=== PATIENT | male | born 1990 | race Hispanic/Latino ===

== ENCOUNTER 2018-07-15 09:15 | Inpatient (IN) | payer BC ==
[2018-07-15] MEDS ORDERED: NA CHLORIDE 0.9% 1,000 ML ONE (09:40)
[2018-07-15] MEDS ORDERED: HYDROCODONE/APAP 10/325 TAB ONE (10:01)
[2018-07-15 10:08] LABS: Absolute Lymphocytes (CBC) 1.3 K/uL (0.7-4.9); Absolute Monocytes 1.4 K/uL (0.1-1.3); Absolute Neutrophil 12.5 K/uL (1.8-8.0); Basophils % 0.3 % (0-1.3); Eosinophils % 2.1 % (0-4.4); Hematocrit 36.9 % (39.6-49.0); Lymphocytes % 8.4 % (15.3-44.8); MCH 28.5 pg (27.0-35.0); MCV 83.9 fL (80-100); MPV 7.3 fL (7.6-11.3); Monocytes % 9.1 % (3.3-12.3)
[2018-07-15 10:17] LABS: BUN Blood Urea Nitrogen 10 mg/dL (7-18); Bicarbonate 26 mmol/L (21-32); Glucose Level 306 mg/dL (74-106); Potassium 3.7 mmol/L (3.5-5.1); Sodium Level 133 mmol/L (136-145)
--- NOTE | 2018-07-15 10:33 | RAD REPORT ---
EXAM DESCRIPTION: RAD - Foot Right 3 View - 07/15/2018 10:18 am CLINICAL HISTORY: Pain;Swelling COMPARISON: Foot Right Wo Cont dated 03/23/2017; Foot Right 3 View dated 03/20/2017 FINDINGS: Soft tissue swelling is seen along the region of the forefoot. A soft tissue wound is like ly present along the plantar aspect of the forefoot. No subcutaneous gas is seen. No radiographic fin ding of osteomyelitis. IMPRESSION: Soft tissue swelling is seen in the forefoot with small plantar ulceration noted. No fin ding to indicate osteomyelitis.
--- NOTE | 2018-07-15 10:49 | EDPHYS ---
Physician Documentation [facility] Name: Parminder Smiley Age: 28 yrs Sex: Male : 1990 Arrival Date: 07/15/2018 Time: 09:17 Bed 6 Private MD: Kristy Arguelles H; Sinha, Anil ED Physician Caleb Marrero HPI: 07/15 09:34 This 28 yrs old Male presents to ER via Ambulatory with complaints of rn Infection R Foot. 09:34 the patient presents with a swollen area of the right foot. Description: erythematous, rn swollen. Onset: The symptoms/episode began/occurred last night. Possible cause(s): unknown. Associated signs and symptoms: Pertinent positives: swelling, Pertinent negatives: fever. Severity of symptoms: At their worst the symptoms were moderate, in the emergency department the symptoms are unchanged. The patient has experienced similar episodes in the past. Sent by Dr. Middleton for admission to hospital for cellulitis, diabetic foot infection, sent from wound healing. NO fever. + swelling and pain that shoots up right foot.. Historical: - Allergies: 09:28 No Known Allergies; hb - Home Meds: 09:28 Humulin R 100 unit/mL soln [Active]; lisinopril 20 mg Oral tab 1 tab BID [Active]; hb Lyrica 200mg Oral 3 times per day [Active]; - PMHx: 09:28 Cellulitis; Diabetes - IDDM; Hypertension; hb - Immunization history:: Adult Immunizations up to date. - Social history:: Smoking status: Patient/guardian denies using tobacco. - Ebola Screening: : No symptoms or risks identified at this time. - Family history:: not pertinent. - Hospitalizations: : No recent hospitalization is reported. ROS: 09:34 Constitutional: Negative for fever, chills, and weight loss, Eyes: Negative for injury, rn pain, redness, and discharge, Neck: Negative for injury, pain, and swelling, Cardiovascular: Negative for chest pain, palpitations, and edema, Respiratory: Negative for shortness of breath, cough, wheezing, and pleuritic chest pain, Abdomen/GI: Negative for abdominal pain, nausea, vomiting, diarrhea, and constipation, MS/Extremity: Negative for injury and deformity, Neuro: Negative for headache, seizure. Exam: 09:34 Constitutional: This is a well developed, well nourished patient who is awake, alert, rn and in no acute distress. Head/Face: Normocephalic, atraumatic. Eyes: Pupils equal round and reactive to light ENT: MMM Cardiovascular: tachycardic, regular, no murmur Respiratory: No increased work of breathing, no retractions Skin: Warm, dry, mild erythema to dorsum of right foot MS/ Extremity: Pulses equal, no cyanosis. + mild swelling of right foot with mild dorsal erythema, + shallow ulceration medial/plantar surface at base of first MTP, no drainage. Vital Signs: 09:26 BP 153 / 96; Pulse 121; Resp 18; Temp 98.7(O); Pulse Ox 98% on R/A; Weight 115.67 kg; 3 Height 6 ft. 2 in. (187.96 cm); Pain 6/10; 10:34 BP 138 / 97; Pulse 131; Resp 18; Pulse Ox 99% ; sv 11:45 BP 123 / 88; Pulse 113; Resp 20; Temp 98.7; Pulse Ox 99% on R/A; Pain 6/10; dm5 12:30 BP 127 / 93; Pulse 100; Resp 18; Pulse Ox 100% ; sv 09:26 Body Mass Index 32.74 (115.67 kg, 187.96 cm) [facility] MDM: 09:30 Patient medically screened. rn 10:47 Differential diagnosis: cellulitis. Data reviewed: vital signs, nurses notes, lab test rn result(s), radiologic studies, plain films, and as a result, I will admit patient. Counseling: I had a detailed discussion with the patient and/or guardian regarding: the historical points, exam findings, and any diagnostic results supporting the discharge/admit diagnosis, lab results, radiology results, the need for further work-up and treatment in the hospital. Medical screen evaluation completed. EMTALA emergency medical condition absent. 10:47 Response to treatment: the patient's symptoms have mildly improved after treatment, and rn as a result, I will admit patient. Admission orders: after a detailed discussion of the patient's condition and case, the admit orders are written by me. 07/15 09: Order name: CBC with Diff rn 07/15 09: Order name: Basic Metabolic Panel; Complete Time: 10:47 rn 10/25 09:31 Order name: Blood Culture Adult (2) rn 07/15 09:31 Order name: Ketone, Serum; Complete Time: 10:47 rn 07/15 09:32 Order name: CBC with Automated Diff; Complete Time: 10:17 EDMS 07/15 09:55 Order name: Glucose, Ancillary Testing; Complete Time: 10:17 EDMS 07/15 09:31 Order name: IV Start; Complete Time: 09:58 rn 07/15 09:31 Order name: Glucose Level; Complete Time: 09:58 rn 07/15 09:31 Order name: XRAY Foot RIGHT 3 View; Complete Time: 10:34 rn Administered Medications: 09:55 Drug: NS 0.9% 1000 ml Route: IV; Rate: 1000 ml; Site: right forearm; sv 12:50 Follow up: Response: No adverse reaction; IV Status: Completed infusion; IV Intake: sv 1000ml 09:58 Drug: [place] 10 mg-325 mg 1 tabs Route: PO; sv 10:38 Follow up: Response: No adverse reaction sv 11:15 Follow up: Response: No adverse reaction; Pain is unchanged, physician notified dm5 11:33 Drug: TORadol 30 mg Route: IVP; Site: right forearm; dm5 12:00 Follow up: Response: No adverse reaction sv 11:34 CANCELLED (Duplicate Order): NS 0.9% 1000 ml IV at 1000 ml once dm5 11:43 Drug: vancoMYCIN 1 grams Route: IVPB; Infused Over: 2 hrs; Site: right forearm; dm5 12:50 Follow up: Response: No adverse reaction; IV Status: Infusion continued upon admission sv Point of Care Testing: Blood Glucose: 09:40 Blood Glucose: 290 mg/dL; sv Ranges: Critical Glucose Levels:Adult <50 mg/dl or >400 mg/dl <40 mg/dl or >180 mg/dl Disposition: 07/15/18 10:48 Hospitalization ordered by Angella Durán for Inpatient Admission. Preliminary diagnosis are Cellulitis of right lower limb, Hyperglycemia, unspecified. - Bed requested for Telemetry/MedSurg (Inpatient). - Status is Inpatient Admission. hb - Condition is Stable. - Problem is new. - Symptoms have improved. UTI on Admission? No Signatures: Dispatcher [facility] Carlie Villa RN RN dm5 Viktoria Wilkins, RN ALLYSSA Caleb Marrero MD MD rn Baxter, Heather, RN RN Kristina Muhammad [facility] Dian Henderson Corrections: (The following items were deleted from the chart) 10:57 10:48 Hospitalization Ordered by Angella Durán MD for Inpatient Admission. Preliminary eb diagnosis is Cellulitis of right lower limb; Hyperglycemia, unspecified. Bed requested for Telemetry/MedSurg (Inpatient). Status is Inpatient Admission. Condition is Stable. Problem is new. Symptoms have improved. UTI on Admission? No. rn 11:34 11:33 NS 0.9% 1000 ml IV at 1000 ml once ordered. rn dm5 12:44 10:57 07/15/2018 10:48 Hospitalization Ordered by Angella Durán MD for Inpatient 3 Admission. Preliminary diagnosis is Cellulitis of right lower limb; Hyperglycemia, unspecified. Bed requested for Telemetry/MedSurg (Inpatient). Status is Inpatient Admission. Condition is Stable. Problem is new. Symptoms have improved. UTI on Admission? No. eb 12:59 12:44 07/15/2018 10:48 Hospitalization Ordered by Angella Durán MD for Inpatient Admission. Preliminary diagnosis is Cellulitis of right lower limb; Hyperglycemia, unspecified. Bed requested for Telemetry/MedSurg (Inpatient). Status is Inpatient Admission. Condition is Stable. Problem is new. Symptoms have improved. UTI on Admission? No. 3
--- NOTE | 2018-07-15 10:49 | ER ---
Nurse's Notes [facility] Name: Parminder Smiley Age: 28 yrs Sex: Male : 1990 Arrival Date: 07/15/2018 Time: 09:17 Bed 6 Private MD: Kristy Arguelles H; Sinha, Anil Diagnosis: Cellulitis of right lower limb;Hyperglycemia, unspecified Presentation: 07/15 09:26 Presenting complaint: Patient states: Sent from wound care for wound to right foot. hb Reports increased pain, swelling, and redness over last 2-3 days. Transition of care: patient was not received from another setting of care. Onset of symptoms was July 15, 2018. Risk Assessment: Do you want to hurt yourself or someone else? Patient reports no desire to harm self or others. Care prior to arrival: None. :26 Method Of Arrival: Ambulatory hb 09:26 Acuity: REYMUNDO 3 hb 09:40 Initial Sepsis Screen: Does the patient meet any 2 criteria? HR > 90 bpm. Yes Does the sv patient have a suspected source of infection? Yes: Skin breakdown/wound. Historical: - Allergies: 09:28 No Known Allergies; hb - Home Meds: :28 Humulin R 100 unit/mL soln [Active]; lisinopril 20 mg Oral tab 1 tab BID [Active]; hb Lyrica 200mg Oral 3 times per day [Active]; - PMHx: 09:28 Cellulitis; Diabetes - IDDM; Hypertension; hb - Immunization history:: Adult Immunizations up to date. - Social history:: Smoking status: Patient/guardian denies using tobacco. - Ebola Screening: : No symptoms or risks identified at this time. - Family history:: not pertinent. - Hospitalizations: : No recent hospitalization is reported. Screenin:40 Abuse screen: Denies threats or abuse. Denies injuries from another. Nutritional sv screening: No deficits noted. Tuberculosis screening: No symptoms or risk factors identified. Fall Risk None identified. Assessment: 09:35 General: Appears in no apparent distress. uncomfortable, well developed, Behavior is sv calm, cooperative, appropriate for age. Pain: Complains of pain in right bhatt, anterior aspect of right ankle and dorsum of right foot Pain currently is 6 out of 10 on a pain scale. Quality of pain is described as shooting, Pain began this morning Is continuous. Neuro: Level of Consciousness is awake, alert, obeys commands, Oriented to person, place, time, situation, Moves all extremities. Full function Gait is steady, Speech is normal. Respiratory: Respiratory effort is even, unlabored, Respiratory pattern is regular, symmetrical. Derm: Skin is pink, warm \T\ dry. mild redness noted to anterior right foot. Pt stated he noticed it this morning. Decubitus located on right foot is draining none noted Pt just came from the [facility]. Musculoskeletal: Range of motion: intact in all extremities, Swelling present in right foot. 10:00 Reassessment: Patient appears in no apparent distress at this time. No changes from sv previously documented assessment. Patient and/or family updated on plan of care and expected duration. Pain level reassessed. Patient is alert, oriented x 3, equal unlabored respirations, skin warm/dry/pink. 12:45 Reassessment: Patient appears in no apparent distress at this time. No changes from sv previously documented assessment. Patient and/or family updated on plan of care and expected duration. Pain level reassessed. Patient is alert, oriented x 3, equal unlabored respirations, skin warm/dry/pink. Vital Signs: 09:26 BP 153 / 96; Pulse 121; Resp 18; Temp 98.7(O); Pulse Ox 98% on R/A; Weight 115.67 kg; dh3 Height 6 ft. 2 in. (187.96 cm); Pain 6/10; 10:34 BP 138 / 97; Pulse 131; Resp 18; Pulse Ox 99% ; sv 11:45 BP 123 / 88; Pulse 113; Resp 20; Temp 98.7; Pulse Ox 99% on R/A; Pain 6/10; dm5 12:30 BP 127 / 93; Pulse 100; Resp 18; Pulse Ox 100% ; sv 09:26 Body Mass Index 32.74 (115.67 kg, 187.96 cm) 3 ED Course: 09:17 Patient arrived in ED. as 09:19 Kristy Arguelles DO is Private Physician. as 09:19 Lucio Middleton MD is Private Physician. as 09:19 Caleb Marrero MD is Attending Physician. rn 09:24 Viktoria Wilkins RN is Primary Nurse. sv 09:27 Triage completed. hb 09:28 Arm band placed on right wrist. hb 09:40 Patient has correct armband on for positive identification. Bed in low position. Call sv light in reach. Pulse ox on. NIBP on. Door closed. Head of bed elevated. 09:40 Initial lab(s) drawn, by me, sent to lab. First set of blood cultures drawn by me. sv Inserted saline lock: 20 gauge in right forearm, using aseptic technique. Blood collected. Flushed right forearm with 5 ml normal saline. 09:55 Second set of blood cultures drawn by me. sv 10:13 Awaiting lab results, Awaiting radiology results. sv 10:13 X-ray(s) taken. sv 10:14 CBC with Diff Sent. sv 10:18 XRAY Foot RIGHT 3 View In Process Unspecified. EDMS 10:48 Angella Durán MD is Hospitalizing Provider. rn 12:51 No provider procedures requiring assistance completed. Patient admitted, IV remains in sv place. intact. Administered Medications: 09:55 Drug: NS 0.9% 1000 ml Route: IV; Rate: 1000 ml; Site: right forearm; sv 12:50 Follow up: Response: No adverse reaction; IV Status: Completed infusion; IV Intake: sv 1000ml 09:58 Drug: Munday 10 mg-325 mg 1 tabs Route: PO; sv 10:38 Follow up: Response: No adverse reaction sv 11:15 Follow up: Response: No adverse reaction; Pain is unchanged, physician notified dm5 11:33 Drug: TORadol 30 mg Route: IVP; Site: right forearm; dm5 12:00 Follow up: Response: No adverse reaction sv 11:34 CANCELLED (Duplicate Order): NS 0.9% 1000 ml IV at 1000 ml once dm5 11:43 Drug: vancoMYCIN 1 grams Route: IVPB; Infused Over: 2 hrs; Site: right forearm; dm5 12:50 Follow up: Response: No adverse reaction; IV Status: Infusion continued upon admission sv Point of Care Testing: Blood Glucose: 09:40 Blood Glucose: 290 mg/dL; sv Ranges: Intake: 12:50 IV: 1000ml; Total: 1000ml. sv Outcome: 10:48 Decision to Hospitalize by Provider. rn 12:51 Admitted to Med/surg accompanied by tech, via wheelchair, room 204, with chart, Report sv called to Amando SPIVEY 12:51 Condition: stable 12:51 Instructed on the need for admit. 12:59 Patient left the ED. hb Signatures: Dispatcher [employer] Carlie Alba RN RN dm5 Verde, Stephanie RN Tami Gordon Roman, MD MD rn Baxter, Heather, RN RN hb Herrera, Deanna 3 Corrections: (The following items were deleted from the chart) 09:29 09:26 Presenting complaint: Patient states: Sent from wound care for wound infection of hb right foot. hb
[2018-07-15] MEDS ORDERED: KETOROLAC 30 MG/ML INJ ONE (11:34)
[2018-07-15] MEDS ORDERED: VANCOMYCIN 1 GM/250 ML BAG ONE (11:35)
[2018-07-15] MEDS ORDERED: ACETAMINOPHEN 500 MG TAB PO PRN (13:15)
[2018-07-15] MEDS ORDERED: GLUCAGON 1 MG/VIAL IM PRN (13:15)
[2018-07-15] MEDS ORDERED: VANCOMYCIN 1.25 GM in NA CHLORIDE 0.9% 250 ML IVPB SCH (13:15)
[2018-07-15] MEDS ORDERED: ONDANSETRON 4 MG/2 ML VIAL IV PRN (13:15)
[2018-07-15] MEDS ORDERED: D50W 25 GM/50 ML SYRINGE IV PRN (13:15)
[2018-07-15 13:32] VITALS: BMI 32.1
[2018-07-15] MEDS: NA CHLORIDE 0.9% 1,000 ML IV SCH (13:57)
[2018-07-15] MEDS ORDERED: INFLUENZA VACCINE (for 3y+) 0.5 ML DOSE IMVAC ONE (14:00)
[2018-07-15] MEDS ORDERED: POTASSIUM CL SA 10 MEQ TAB PO ONE (14:00)
[2018-07-15] MEDS ORDERED: TRAMADOL HCL 50 MG TAB PO PRN (14:21)
[2018-07-15] MEDS ORDERED: VANCOMYCIN/NS 1 gm 1 GM/250 ML BAG IV SCH (15:00)
--- NOTE | 2018-07-15 15:55 | P.HP ---
Certification for Inpatient Patient admitted to: Inpatient With expected LOS: >2 Midnights Patient will require the following post-hospital care: None Practitioner: I am a practitioner with admitting privileges, knowledge of patient current condition, hospital course, and medical plan of care. Services: Services provided to patient in accordance with Admission requirements found in Title 42 Section 412.3 of the Code of Federal Regulations Patient History Date of Service: 07/15/18 Primary Care Provider: Dr Middleton - Wound care doctor Reason for admission: right foot infection History of Present Illness: This is a 28-year-old male with significant past medical history of type 2 diabetes, hypertension, noncompliance, obesity, 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 Patient was seen by general surgeon in the wound clinic today and was found to have worsening of his diabetic foot ulcer on the right foot. Patient thus was sent over to the ER for further workup. Patient has failed outpatient therapy with oral antibiotics and daily wound care and this needed to be admitted to the hospital for IV antibiotics. Patient denies having any fever chills nausea vomiting abdominal pain shortness of breath or any other associated symptoms. Patient does complain of having a lot of pain to the area and states that he has noticed increasing purulent discharge to the area as well. Allergies No Known Allergies Allergy (Verified 06/27/15 21:39) Home Medications: Lisinopril [Prinivil*] 20 mg PO BID 07/12/17 Hydrocodone 10/APAP 325 [Chunky 10/325*] 1 tab PO Q4HP PRN #20 tab 07/16/17 Gabapentin [Gralise] 3 tab PO BID 07/15/18 Insulin Aspart Protam & Aspart [Novolog Mix 70-30 Flexpen Syrn] 13 units SQ BID 07/15/18 - Past Medical/Surgical History Has patient received pneumonia vaccine in the past: Yes Diabetic: Yes -: DM -: HTN -: OSTEOMYELITIS -: LEFT FOOT SURGERY -: back surgery - Family History Family History: Reviewed- Non-Contributory - Family History Father -: Diabetes Notes: dialysis/ Mother -: Stroke - Social History Smoking Status: Never smoker Alcohol use: No CD- Drugs: No Caffeine use: Yes Place of Residence: Home Review of Systems 10-point ROS is otherwise unremarkable Physical Examination - Vital Signs Temperature: 97.6 F Blood Pressure: 142/82 Pulse: 103 Respirations: 18 Pulse Ox (%): 100 - Physical Exam General: Alert, In no apparent distress HEENT: Atraumatic, PERRLA, Mucous membr. moist/pink, EOMI, Sclerae nonicteric Neck: Supple, 2+ carotid pulse no bruit, No LAD, Without JVD or thyroid abnormality Respiratory: Clear to auscultation bilaterally, Normal air movement Cardiovascular: Regular rate/rhythm, Normal S1 S2 Gastrointestinal: Normal bowel sounds, No tenderness Musculoskeletal: Erythema, Tenderness, Warmth, Other (right diabetic Foot ulcer. Purulent Drainage noted. Surroding Erythema noted as well. ) Integumentary: No rashes Neurological: Normal gait, Normal speech, Normal strength at 5/5 x4 extr, Normal tone, Normal affect Lymphatics: No axilla or inguinal lymphadenopathy - Studies Laboratory Data (last 24 hrs) 07/15/18 09:40: Sodium 133 L, Potassium 3.7, BUN 10, Creatinine 0.80, Glucose 306 H 07/15/18 09:40: WBC 15.6 H, Hgb 12.5 L, Hct 36.9 L, Plt Count 387 Assessment and Plan - Problems (Diagnosis) (1) Ulcer of foot due to diabetes Onset Date: 06/04/17 Current Visit: No Status: Acute Plan: Ulcer of the right foot with cellulitis. failed Outpt Therapy -IV vanc and zosyn -Wound and blood culture -general Surgery consulted. Appreciated reccs -Continue to monitor closely -Daily wound care Qualifiers: Diabetic foot ulcer location: other Diabetes mellitus type: type 2 Laterality: right Non-pressure ulcer stage: with fat layer exposed Qualified Code(s): E11.621 - Type 2 diabetes mellitus with foot ulcer; L97.512 - Non-pressure chronic ulcer of other part of right foot with fat layer exposed (2) Cellulitis Onset Date: 06/04/17 Current Visit: No Status: Chronic Plan: See # 1 Qualifiers: Site of cellulitis: extremity Site of cellulitis of extremity: lower extremity Laterality: right Qualified Code(s): L03.115 - Cellulitis of right lower limb (3) Diabetes type 2, uncontrolled Onset Date: 04/08/17 Current Visit: No Status: Chronic Plan: Hyperglycemia with Acetone and no Gap. -IV fluids and ISS -AC HS Qualifiers: Glycemic state: with hyperglycemia Qualified Code(s): E11.65 - Type 2 diabetes mellitus with hyperglycemia (4) GERD (gastroesophageal reflux disease) Onset Date: 03/23/17 Current Visit: No Status: Chronic Plan: Restarted on protonix Qualifiers: Esophagitis presence: without esophagitis Qualified Code(s): K21.9 - Gastro -esophageal reflux disease without esophagitis (5) Hypertension Onset Date: 07/13/17 Current Visit: No Status: Chronic Plan: restarted on lisinopril Qualifiers: Hypertension type: essential hypertension (6) Hypertriglyceridemia Onset Date: 03/23/17 Current Visit: No Status: Chronic Plan: restart on lipitor (7) Obesity (BMI 30.0-34.9) Onset Date: 06/04/17 Current Visit: No Status: Chronic (8) Noncompliance Current Visit: No Status: Chronic Discharge Plan: Other Plan to discharge in: 72 Hours - Advance Directives Does patient have a Living Will: No Does patient have a Durable POA for Healthcare: No - Code Status/Comfort Care Code Status Assessed: Yes Critical Care: No
[2018-07-15] MEDS: HYDROCODONE/APAP 10/325 TAB PO PRN ×2 (17:12→21:19)
[2018-07-15] MEDS: INSULIN -REGULAR HUMAN 50 UNIT/0.5 ML ML SQ SCH ×2 (17:12→21:18)
[2018-07-15] MEDS: PIPER/TAZO/NS 3.375gm 3.375 GM/100 ML BAG IVPB SCH (17:12)
[2018-07-15] MEDS: GABAPENTIN PO SCH (21:00)
[2018-07-15] MEDS: GABAPENTIN 300 MG CAP PO SCH (21:20)
[2018-07-15] MEDS: LISINOPRIL 20 MG TAB PO SCH (21:20)
[2018-07-16] MEDS: PIPER/TAZO/NS 3.375gm 3.375 GM/100 ML BAG IVPB SCH ×3 (01:50→16:53)
[2018-07-16] MEDS: NA CHLORIDE 0.9% 1,000 ML IV SCH ×2 (01:51→08:36)
[2018-07-16] MEDS: HYDROCODONE/APAP 10/325 TAB PO PRN ×5 (01:53→21:36)
[2018-07-16] MEDS: VANCOMYCIN 2 GM in NA CHLORIDE 0.9% 500 ML IVPB SCH ×2 (03:00→15:36)
[2018-07-16] MEDS ORDERED: VANCOMYCIN 2 GM/500 ML BAG ONE (04:17)
[2018-07-16 06:38] LABS: Absolute Lymphocytes (CBC) 1.7 K/uL (0.7-4.9); Absolute Monocytes 0.9 K/uL (0.1-1.3); Absolute Neutrophil 7.2 K/uL (1.8-8.0); Basophils % 0.3 % (0-1.3); Eosinophils % 5.7 % (0-4.4); Hematocrit 33.3 % (39.6-49.0); MCH 28.4 pg (27.0-35.0); MCV 84.4 fL (80-100); Monocytes % 8.9 % (3.3-12.3); RBC Red Blood Cell Count 3.95 M/uL (4.33-5.43)
[2018-07-16 06:53] LABS: ALT/SGPT 14 U/L (12-78); AST/SGOT 10 U/L (15-37); Albumin 2.5 g/dL (3.4-5.0); Alkaline Phosphatase 114 U/L (45-117); BUN Blood Urea Nitrogen 10 mg/dL (7-18); Bicarbonate 22 mmol/L (21-32); Bilirubin Total 0.3 mg/dL (0.2-1.0); Glucose Level 251 mg/dL (74-106); Magnesium 2.1 mg/dL (1.8-2.4); Potassium 3.7 mmol/L (3.5-5.1); Protein, Total 6.7 g/dL (6.4-8.2); Sodium Level 137 mmol/L (136-145)
[2018-07-16] MEDS: GABAPENTIN 300 MG CAP PO SCH ×2 (08:27→21:35)
[2018-07-16] MEDS: LISINOPRIL 20 MG TAB PO SCH ×2 (08:28→21:35)
[2018-07-16] MEDS: INSULIN -REGULAR HUMAN 50 UNIT/0.5 ML ML SQ SCH ×4 (08:35→21:36)
[2018-07-16] MEDS: GABAPENTIN PO SCH ×2 (09:00→21:00)
[2018-07-16] MEDS ORDERED: POTASSIUM CL SA 10 MEQ TAB PO ONE (09:00)
[2018-07-16] MEDS: COLLAGENASE 30 GM OINTMENT TOP SCH (09:24)
--- NOTE | 2018-07-16 12:59 | CON ---
Date of Consultation: 07/15/2018 Reason: Right foot diabetic infection. History Of Present Illness: The patient is a 28-year-old gentleman who I [facility], presented to our clinic yesterday morning and has erythema, edema , swelling, increasing pain about 1 day prior to our visit. I immediately advised him to go into the emergency room to be admitted for IV antibiotics and the workup was begun and I was consulted as th e patient is an inpatient now. He is awake, alert, states that the pain is a little bit better. No fevers or chills. No open wound that is draining any pus. He does have a diabetic foot ulcer which is chronic in nature and there is no drainage from there. The erythema and redness is between mostly in the first webspace and dorsum of the foot. Yesterday, the erythema has improved, the edema has i mproved as well. No sore throat, runny nose, cough, headaches, or dizziness. No chest pain. Review of Systems: Otherwise unremarkable. Medical History: Type 1 diabetes, hypertension and history of osteomyelitis. Past Surgical History: Multiple I and D, and foot surgeries. Allergies: NONE. Social History: The patient does not smoke. Denies drinking. Family History: Significant for diabetes and stroke. Physical Examination: Vital Signs: Stable. He is afebrile. He is awake, alert, and oriented x3. Head and Neck: Cranial nerves 2 through 12 are grossly within normal limits. No neck masses. No JV D. Throat clear. Neck is supple. Chest: Clear. Heart: S1, S2. Abdomen: Soft. Extremities: Palpable dorsalis pedis and posterior tibial pulses of right foot. There is edema. Th ere is erythema in the dorsum and towards the first webspace. There is no fluctuance that I can appr eciate. However, I am still concerned about possible infection in that foot. There is no real tende rness. Review of Systems: Otherwise unremarkable. Laboratory Data: Shows white count of 15.6 yesterday with a left shift, today it is 10.5, and the le ft shift has improved. Sugar was over 300 yesterday, it is down to 244 today. X-ray does not show a ny evidence of osteo. Assessment: A 28-year-old gentleman with the right foot diabetic infection, improving with IV antibi otics. Recommendations: The patient still have an abscess developing. We will get an MRI today to make isidro e he does not. We will continue him on IV antibiotics and wound care has been instituted and I will make further recommendation after the MRI is done. JACOBY/FLORI Voice ID: [id number] Report ID: [id number]
--- NOTE | 2018-07-16 13:30 | P.PN ---
Subjective Date of Service: 07/16/18 Primary Care Provider: Dr Middleton - Wound care doctor Chief Complaint: right foot infection Patient seen and examined at bedside with RN. Chart reviewed. Case discussed with general surgery. Currently patient has been doing well overall. Wound does appear to be improving on IV antibiotics Review of Systems 10-point ROS is otherwise unremarkable Physical Examination - Vital Signs Temperature: 97.9 F Blood Pressure: 104/57 Pulse: 92 Respirations: 17 Pulse Ox (%): 95 - Physical Exam General: Alert, In no apparent distress HEENT: Atraumatic, PERRLA, EOMI Neck: Supple, JVD not distended Respiratory: Clear to auscultation bilaterally, Normal air movement Cardiovascular: Regular rate/rhythm, Normal S1 S2 Gastrointestinal: Normal bowel sounds, No tenderness Musculoskeletal: No tenderness Integumentary: Erythema, Warmth, Diabetic ulcer (Right foot) Neurological: Normal speech, Normal tone, Normal affect Lymphatics: No axilla or inguinal lymphadenopathy - Studies Medications List Reviewed: Yes Assessment And Plan - Current Problems (Diagnosis) (1) Ulcer of foot due to diabetes Onset Date: 06/04/17 Current Visit: No Status: Acute Plan: Ulcer of the right foot with cellulitis. failed Outpt Therapy -IV vanc and zosyn -Wound and blood culture pending at this time -general Surgery consulted. Appreciated reccs -Continue to monitor closely -Daily wound care Qualifiers: Diabetic foot ulcer location: other Diabetes mellitus type: type 2 Laterality: right Non-pressure ulcer stage: with fat layer exposed Qualified Code(s): E11.621 - Type 2 diabetes mellitus with foot ulcer; L97.512 - Non-pressure chronic ulcer of other part of right foot with fat layer exposed (2) Cellulitis Onset Date: 06/04/17 Current Visit: No Status: Chronic Plan: See # 1 Qualifiers: Site of cellulitis: extremity Site of cellulitis of extremity: lower extremity Laterality: right Qualified Code(s): L03.115 - Cellulitis of right lower limb (3) Diabetes type 2, uncontrolled Onset Date: 04/08/17 Current Visit: No Status: Chronic Plan: Hyperglycemia with Acetone and no Gap. -IV fluids and ISS -AC HS Qualifiers: Glycemic state: with hyperglycemia Qualified Code(s): E11.65 - Type 2 diabetes mellitus with hyperglycemia (4) GERD (gastroesophageal reflux disease) Onset Date: 03/23/17 Current Visit: No Status: Chronic Plan: Restarted on protonix Qualifiers: Esophagitis presence: without esophagitis Qualified Code(s): K21.9 - Gastro -esophageal reflux disease without esophagitis (5) Hypertension Onset Date: 07/13/17 Current Visit: No Status: Chronic Plan: restarted on lisinopril Qualifiers: Hypertension type: essential hypertension (6) Hypertriglyceridemia Onset Date: 03/23/17 Current Visit: No Status: Chronic Plan: restart on lipitor (7) Obesity (BMI 30.0-34.9) Onset Date: 06/04/17 Current Visit: No Status: Chronic (8) Noncompliance Onset Date: 07/16/18 Current Visit: No Status: Chronic Discharge Plan: Home Plan to discharge in: 72 Hours - Code Status/Comfort Care Code Status Assessed: Yes Critical Care: No
--- NOTE | 2018-07-16 16:58 | RAD REPORT ---
EXAM DESCRIPTION: MRI - Foot Right Wo Cont - 07/16/2018 3:28 pm CLINICAL HISTORY: Foot pain and swelling. Ulceration. COMPARISON: 2017 TECHNIQUE: Axial, sagittal, and coronal magnetic images of the right foot was obtained FINDINGS: Diffuse edema is present within subcutaneous tissues. Effusion is present within the first MTP joint No significant abnormal signal within the bones is noted. . IMPRESSION: Diffuse edema within the subcutaneous tissues consistent with cellulitis. No evidence of osteomyelitis
[2018-07-17] MEDS: PIPER/TAZO/NS 3.375gm 3.375 GM/100 ML BAG IVPB SCH ×3 (00:52→17:00)
[2018-07-17] MEDS: HYDROCODONE/APAP 10/325 TAB PO PRN ×5 (02:22→21:47)
[2018-07-17] MEDS: NA CHLORIDE 0.9% 1,000 ML IV SCH ×4 (03:53→22:57)
[2018-07-17] MEDS: VANCOMYCIN 2 GM in NA CHLORIDE 0.9% 500 ML IVPB SCH ×2 (03:53→15:47)
[2018-07-17 05:39] LABS: Absolute Lymphocytes (CBC) 1.5 K/uL (0.7-4.9); Absolute Monocytes 0.7 K/uL (0.1-1.3); Absolute Neutrophil 5.2 K/uL (1.8-8.0); Basophils % 0.5 % (0-1.3); Hematocrit 33.5 % (39.6-49.0); Lymphocytes % 19.3 % (15.3-44.8); MCH 28.6 pg (27.0-35.0); MCV 85.2 fL (80-100); MPV 6.4 fL (7.6-11.3); Monocytes % 8.6 % (3.3-12.3); RBC Red Blood Cell Count 3.93 M/uL (4.33-5.43)
[2018-07-17 05:56] LABS: ALT/SGPT 12 U/L (12-78); AST/SGOT 11 U/L (15-37); Albumin 2.4 g/dL (3.4-5.0); Alkaline Phosphatase 100 U/L (45-117); BUN Blood Urea Nitrogen 7 mg/dL (7-18); Bicarbonate 19 mmol/L (21-32); Bilirubin Total 0.3 mg/dL (0.2-1.0); Glucose Level 245 mg/dL (74-106); Protein, Total 6.7 g/dL (6.4-8.2); Sodium Level 136 mmol/L (136-145)
[2018-07-17] MEDS: GABAPENTIN PO SCH (09:00)
[2018-07-17] MEDS: COLLAGENASE 30 GM OINTMENT TOP SCH (09:00)
[2018-07-17] MEDS: LISINOPRIL 20 MG TAB PO SCH ×2 (09:24→21:49)
[2018-07-17] MEDS: GABAPENTIN 300 MG CAP PO SCH ×2 (09:24→21:36)
[2018-07-17] MEDS: INSULIN -REGULAR HUMAN 50 UNIT/0.5 ML ML SQ SCH ×4 (09:25→21:37)
--- NOTE | 2018-07-17 11:33 | P.PN ---
Subjective Date of Service: 07/17/18 Primary Care Provider: Dr Middleton - Wound care doctor Chief Complaint: right foot infection Patient seen and examined at bedside with RN. Chart reviewed. Case discussed with general surgery. Currently patient has been doing well overall. Wound does appear to be improving on IV antibiotics. Review of Systems 10-point ROS is otherwise unremarkable Physical Examination - Vital Signs Temperature: 98.0 F Blood Pressure: 140/84 Pulse: 91 Respirations: 17 Pulse Ox (%): 98 - Physical Exam General: Alert, In no apparent distress HEENT: Atraumatic, PERRLA, EOMI Neck: Supple, JVD not distended Respiratory: Clear to auscultation bilaterally, Normal air movement Cardiovascular: Regular rate/rhythm, Normal S1 S2 Gastrointestinal: Normal bowel sounds, No tenderness Musculoskeletal: No tenderness Integumentary: Diabetic ulcer Neurological: Normal speech, Normal tone, Normal affect Lymphatics: No axilla or inguinal lymphadenopathy - Studies Medications List Reviewed: Yes Assessment And Plan - Current Problems (Diagnosis) (1) Ulcer of foot due to diabetes Onset Date: 06/04/17 Current Visit: No Status: Acute Plan: Ulcer of the right foot with cellulitis. failed Outpt Therapy -IV vanc and zosyn -Wound culture + for Staph Aureus -Blood Culture pending -general Surgery consulted. Appreciated reccs -Continue to monitor closely -Daily wound care Qualifiers: Diabetic foot ulcer location: other Diabetes mellitus type: type 2 Laterality: right Non-pressure ulcer stage: with fat layer exposed Qualified Code(s): E11.621 - Type 2 diabetes mellitus with foot ulcer; L97.512 - Non-pressure chronic ulcer of other part of right foot with fat layer exposed (2) Cellulitis Onset Date: 06/04/17 Current Visit: No Status: Chronic Plan: See # 1 Qualifiers: Site of cellulitis: extremity Site of cellulitis of extremity: lower extremity Laterality: right Qualified Code(s): L03.115 - Cellulitis of right lower limb (3) Diabetes type 2, uncontrolled Onset Date: 04/08/17 Current Visit: No Status: Chronic Plan: Hyperglycemia with Acetone and no Gap. -IV fluids and ISS -AC HS Qualifiers: Glycemic state: with hyperglycemia Qualified Code(s): E11.65 - Type 2 diabetes mellitus with hyperglycemia (4) GERD (gastroesophageal reflux disease) Onset Date: 03/23/17 Current Visit: No Status: Chronic Plan: Restarted on protonix Qualifiers: Esophagitis presence: without esophagitis Qualified Code(s): K21.9 - Gastro -esophageal reflux disease without esophagitis (5) Hypertension Onset Date: 07/13/17 Current Visit: No Status: Chronic Plan: restarted on lisinopril Qualifiers: Hypertension type: essential hypertension (6) Hypertriglyceridemia Onset Date: 03/23/17 Current Visit: No Status: Chronic Plan: restart on lipitor (7) Obesity (BMI 30.0-34.9) Onset Date: 06/04/17 Current Visit: No Status: Chronic (8) Noncompliance Onset Date: 07/16/18 Current Visit: No Status: Chronic Discharge Plan: Home Plan to discharge in: 48 Hours - Code Status/Comfort Care Code Status Assessed: Yes Critical Care: No
--- NOTE | 2018-07-17 13:33 | PN ---
Date of Progress Note: 07/17/2018 Subjective: The patient is awake, alert. No complaint. Objective: Vital Signs: Stable. Afebrile. Right foot: The erythema is decreased. Edema is decreased. There is no fluctuance. Laboratory Data: White count is normal. MRI showed no osteo, no fluid collection. Assessment: Right foot diabetic infection. Recommendations: Continue IV antibiotics for at least 48 hours, possible discharge on Thursday. No ne ed for any surgical intervention at this time. /MODL Voice ID: [id number] Report ID: [id number]
[2018-07-18] MEDS: PIPER/TAZO/NS 3.375gm 3.375 GM/100 ML BAG IVPB SCH ×3 (00:28→17:39)
[2018-07-18] MEDS: VANCOMYCIN 2 GM in NA CHLORIDE 0.9% 500 ML IVPB SCH ×2 (02:28→15:17)
[2018-07-18 07:38] LABS: ALT/SGPT 13 U/L (12-78); AST/SGOT 11 U/L (15-37); Albumin 2.4 g/dL (3.4-5.0); Alkaline Phosphatase 105 U/L (45-117); BUN Blood Urea Nitrogen 7 mg/dL (7-18); Bicarbonate 22 mmol/L (21-32); Bilirubin Total 0.3 mg/dL (0.2-1.0); Glucose Level 284 mg/dL (74-106); Protein, Total 6.8 g/dL (6.4-8.2); Sodium Level 141 mmol/L (136-145)
[2018-07-18 07:55] LABS: Absolute Lymphocytes (CBC) 1.5 K/uL (0.7-4.9); Absolute Monocytes 0.5 K/uL (0.1-1.3); Absolute Neutrophil 3.4 K/uL (1.8-8.0); Basophils % 0.5 % (0-1.3); Eosinophils % 8.5 % (0-4.4); Hematocrit 33.6 % (39.6-49.0); Lymphocytes % 25.7 % (15.3-44.8); MCH 28.8 pg (27.0-35.0); MCV 84.3 fL (80-100); MPV 6.6 fL (7.6-11.3); Monocytes % 7.6 % (3.3-12.3); RBC Red Blood Cell Count 3.98 M/uL (4.33-5.43)
[2018-07-18] MEDS: COLLAGENASE 30 GM OINTMENT TOP SCH (09:00)
[2018-07-18] MEDS: GABAPENTIN 300 MG CAP PO SCH ×2 (09:46→20:33)
[2018-07-18] MEDS: INSULIN -REGULAR HUMAN 50 UNIT/0.5 ML ML SQ SCH ×4 (09:46→21:17)
[2018-07-18] MEDS: LISINOPRIL 20 MG TAB PO SCH ×2 (09:46→20:32)
[2018-07-18] MEDS: NA CHLORIDE 0.9% 1,000 ML IV SCH ×2 (11:44→21:15)
[2018-07-18] MEDS: HYDROCODONE/APAP 10/325 TAB PO PRN ×3 (11:44→21:18)
--- NOTE | 2018-07-18 13:25 | PN ---
Date of Progress Note: 07/18/2018 Subjective: The patient is awake, alert. No complaint. Feels better. Objective: Vital Signs: Stable. Afebrile. White count is normal. Examination of the right foot, decreased edema, decreased erythema, no fluctuance. Assessment: Cellulitis right foot secondary to complications of diabetes and foot ulcer. Recommendations: Continue IV antibiotics for at least for another 24 hours. Probable discharge dalia rrow. Wound care is ordered. /MODL Voice ID: [id number] Report ID: [id number]
--- NOTE | 2018-07-18 14:54 | P.PN ---
Subjective Date of Service: 07/18/18 Primary Care Provider: Dr Middleton - Wound care doctor Chief Complaint: right foot infection Patient seen and examined at bedside with RN. Chart reviewed. Case discussed with general surgery. Currently patient has been doing well overall. Wound does appear to be improving on IV antibiotics. Review of Systems 10-point ROS is otherwise unremarkable Physical Examination - Vital Signs Temperature: 97.7 F Blood Pressure: 164/98 Pulse: 86 Respirations: 18 Pulse Ox (%): 99 - Physical Exam General: Alert, In no apparent distress HEENT: Atraumatic, PERRLA, EOMI Neck: Supple, JVD not distended Respiratory: Clear to auscultation bilaterally, Normal air movement Cardiovascular: Regular rate/rhythm, Normal S1 S2 Gastrointestinal: Normal bowel sounds, No tenderness Integumentary: Diabetic ulcer Neurological: Normal speech, Normal tone, Normal affect Lymphatics: No axilla or inguinal lymphadenopathy - Studies Medications List Reviewed: Yes Assessment And Plan - Current Problems (Diagnosis) (1) Ulcer of foot due to diabetes Onset Date: 06/04/17 Current Visit: No Status: Acute Plan: Ulcer of the right foot with cellulitis. failed Outpt Therapy -IV vanc and zosyn -Wound culture + for Staph Aureus -Blood Culture pending -general Surgery consulted. Appreciated reccs -Continue to monitor closely -Daily wound care Qualifiers: Diabetic foot ulcer location: other Diabetes mellitus type: type 2 Laterality: right Non-pressure ulcer stage: with fat layer exposed Qualified Code(s): E11.621 - Type 2 diabetes mellitus with foot ulcer; L97.512 - Non-pressure chronic ulcer of other part of right foot with fat layer exposed (2) Cellulitis Onset Date: 06/04/17 Current Visit: No Status: Chronic Plan: See # 1 Qualifiers: Site of cellulitis: extremity Site of cellulitis of extremity: lower extremity Laterality: right Qualified Code(s): L03.115 - Cellulitis of right lower limb (3) Diabetes type 2, uncontrolled Onset Date: 04/08/17 Current Visit: No Status: Chronic Plan: Hyperglycemia with Acetone and no Gap. -IV fluids and ISS -AC HS Qualifiers: Glycemic state: with hyperglycemia Qualified Code(s): E11.65 - Type 2 diabetes mellitus with hyperglycemia (4) GERD (gastroesophageal reflux disease) Onset Date: 03/23/17 Current Visit: No Status: Chronic Plan: Restarted on protonix Qualifiers: Esophagitis presence: without esophagitis Qualified Code(s): K21.9 - Gastro -esophageal reflux disease without esophagitis (5) Hypertension Onset Date: 07/13/17 Current Visit: No Status: Chronic Plan: restarted on lisinopril Qualifiers: Hypertension type: essential hypertension (6) Hypertriglyceridemia Onset Date: 03/23/17 Current Visit: No Status: Chronic Plan: restart on lipitor (7) Obesity (BMI 30.0-34.9) Onset Date: 06/04/17 Current Visit: No Status: Chronic (8) Noncompliance Onset Date: 07/16/18 Current Visit: No Status: Chronic
[2018-07-19] MEDS: PIPER/TAZO/NS 3.375gm 3.375 GM/100 ML BAG IVPB SCH ×2 (01:00→09:12)
[2018-07-19] MEDS: VANCOMYCIN 2 GM in NA CHLORIDE 0.9% 500 ML IVPB SCH (03:37)
[2018-07-19] MEDS: COLLAGENASE 30 GM OINTMENT TOP SCH (09:00)
[2018-07-19] MEDS: NA CHLORIDE 0.9% 1,000 ML IV SCH (09:10)
[2018-07-19] MEDS: INSULIN -REGULAR HUMAN 50 UNIT/0.5 ML ML SQ SCH (09:12)
[2018-07-19] MEDS: GABAPENTIN 300 MG CAP PO SCH (09:12)
[2018-07-19] MEDS: LISINOPRIL 20 MG TAB PO SCH (09:12)
[2018-07-19 10:01] VITALS: O2SAT 98
[2018-07-19 10:35] VITALS: BP 162/96; TEMP 98.2
--- NOTE | 2018-07-19 11:53 | P.DS ---
Admission Date: 07/15/18 Discharge Date: 07/19/18 Primary Care Provider: Dr Middleton - Wound care doctor Disposition: ROUTINE DISCHARGE Discharge Condition: GOOD Reason for Admission: right foot infection Consultations: general Surgery - Problems (1) Ulcer of foot due to diabetes Onset Date: 06/04/17 Current Visit: No Status: Acute Qualifiers: Diabetic foot ulcer location: other Diabetes mellitus type: type 2 Laterality: right Non-pressure ulcer stage: with fat layer exposed Qualified Code(s): E11.621 - Type 2 diabetes mellitus with foot ulcer; L97.512 - Non-pressure chronic ulcer of other part of right foot with fat layer exposed (2) Cellulitis Onset Date: 06/04/17 Current Visit: No Status: Chronic Qualifiers: Site of cellulitis: extremity Site of cellulitis of extremity: lower extremity Laterality: right Qualified Code(s): L03.115 - Cellulitis of right lower limb (3) Diabetes type 2, uncontrolled Onset Date: 04/08/17 Current Visit: No Status: Chronic Qualifiers: Glycemic state: with hyperglycemia Qualified Code(s): E11.65 - Type 2 diabetes mellitus with hyperglycemia (4) GERD (gastroesophageal reflux disease) Onset Date: 03/23/17 Current Visit: No Status: Chronic Qualifiers: Esophagitis presence: without esophagitis Qualified Code(s): K21.9 - Gastro -esophageal reflux disease without esophagitis (5) Hypertension Onset Date: 07/13/17 Current Visit: No Status: Chronic Qualifiers: Hypertension type: essential hypertension (6) Hypertriglyceridemia Onset Date: 03/23/17 Current Visit: No Status: Chronic (7) Obesity (BMI 30.0-34.9) Onset Date: 06/04/17 Current Visit: No Status: Chronic (8) Noncompliance Onset Date: 07/16/18 Current Visit: No Status: Chronic Brief History of Present Illness: This is a 28-year-old male with significant past medical history of type 2 diabetes, hypertension, noncompliance, obesity, 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 Patient was seen by general surgeon in the wound clinic today and was found to have worsening of his diabetic foot ulcer on the right foot. Patient thus was sent over to the ER for further workup. Patient has failed outpatient therapy with oral antibiotics and daily wound care and this needed to be admitted to the hospital for IV antibiotics. Patient denies having any fever chills nausea vomiting abdominal pain shortness of breath or any other associated symptoms. Patient does complain of having a lot of pain to the area and states that he has noticed increasing purulent discharge to the area as well. Hospital Course: Overall during stay patient remained stable Patient is initially admitted to the hospital for cellulitis of the right foot along with a diabetic foot ulcer that has been getting progressively worse and failed outpatient therapy. Patient was started on IV antibiotics here in the hospital. General surgery was consulted who recommended wound culture and continuation of IV antibiotics for 72 hr here in the hospital. Wound cultures were done which was positive for Staph aureus. Patient had marked improvement in his cellulitis along with a diabetic foot ulcer thus he was discharged home and was switched over to p.o. antibiotics with General Surgery recommendation. Patient was given prescription for ciprofloxacin and doxycycline. Patient was also asked to continue going back to the wound Care Center for further treatment. No other complications noted while here in the hospital. All other chronic conditions remained stable while patient was here. Vital Signs/Physical Exam: Temp Pulse Resp BP Pulse Ox 98.2 F 84 18 162/96 H 98 07/19/18 08:00 07/19/18 08:00 07/19/18 08:00 07/19/18 08:00 07/19/18 08:00 General: Alert, In no apparent distress HEENT: Atraumatic, PERRLA, EOMI Neck: Supple, JVD not distended Respiratory: Clear to auscultation bilaterally, Normal air movement Cardiovascular: Regular rate/rhythm, Normal S1 S2 Gastrointestinal: Normal bowel sounds, No tenderness Musculoskeletal: No tenderness Integumentary: Diabetic ulcer Neurological: Normal speech, Normal tone, Normal affect Lymphatics: No axilla or inguinal lymphadenopathy Laboratory Data at Discharge: WBC 6.0 K/uL (4.3-10.9) D 07/18/18 07:06 Hgb 11.5 g/dL (13.6-17.9) L 07/18/18 07:06 Hct 33.6 % (39.6-49.0) L 07/18/18 07:06 Plt Count 408 K/uL (152-406) H 07/18/18 07:06 Sodium 141 mmol/L (136-145) 07/18/18 07:06 Potassium 4.0 mmol/L (3.5-5.1) 07/18/18 07:06 BUN 7 mg/dL (7-18) 07/18/18 07:06 Creatinine 0.70 mg/dL (0.55-1.3) 07/18/18 07:06 Glucose 284 mg/dL (74-106) H 07/18/18 07:06 Magnesium 2.1 mg/dL (1.8-2.4) 07/16/18 05:03 Total Bilirubin 0.3 mg/dL (0.2-1.0) 07/18/18 07:06 AST 11 U/L (15-37) L 07/18/18 07:06 ALT 13 U/L (12-78) 07/18/18 07:06 Alkaline Phosphatase 105 U/L (45-117) 07/18/18 07:06 Home Medications: Lisinopril [Prinivil*] 20 mg PO BID 07/12/17 Hydrocodone 10/APAP 325 [[place] 10325*] 1 tab PO Q4HP PRN #20 tab 07/16/17 Gabapentin [Gralise] 3 tab PO BID 07/15/18 Insulin Aspart Protam & Aspart [Novolog Mix 70-30 Flexpen Syrn] 13 units SQ BID 07/15/18 Ciprofloxacin HCl [Cipro 500 MG Tablet] 500 mg PO Q12H #30 tab 07/19/18 Doxycycline Hyclate [Vibramycin] 100 mg PO Q12H #30 capsule 07/19/18 New Medications: Ciprofloxacin HCl [Cipro 500 MG Tablet] 500 mg PO Q12H #30 tab Doxycycline Hyclate [Vibramycin] 100 mg PO Q12H #30 capsule Diet: Regular Activity: Ad madelaine Followup: Lucio Middleton MD [ACTIVE - CAN ADMIT] - 07/22/18 8:00 am (Appointment made. [facility].)
--- NOTE | 2018-07-19 16:55 | PN ---
Date of Progress Note: 07/19/2018 Subjective: He is awake, alert, no complaint. Objective: Vital Signs: Stable, afebrile. Musculoskeletal: Examination of the right foot reveals markedly diminished erythema and edema. Cell ulitis is improved conservatively over the weekend. Assessment: Right foot diabetic infection with bilateral ulcers on the foot. Recommendations: The patient is cleared for discharge from surgical point of view, Cipro and doxycyc line prescription have been given. Follow up with the [facility] this . JACOBY/FLORI Voice ID: [id number] Report ID: [id number]
== END 2018-07-19 12:21 | disposition home or self-care (01) | DRG 638 ==
LOC: ER 09:15 → ERHOLD 11:19 → 2ND 12:51
PROVIDERS: ADMIT Family Medicine; ATTEND Family Medicine
DX: E11.621 Type 2 diabetes mellitus with foot ulcer (principal); L03.115 Cellulitis of right lower limb; L97.512 Non-pressure chronic ulcer of other part of right foot with fat layer exposed; E11.65 Type 2 diabetes mellitus with hyperglycemia; B95.61 Methicillin susceptible Staphylococcus aureus infection as the cause of diseases classified elsewhere; K21.9 Gastro-esophageal reflux disease without esophagitis; I10 Essential (primary) hypertension; E78.1 Pure hyperglyceridemia; E66.9 Obesity, unspecified; Z68.32 Body mass index [BMI] 32.0-32.9, adult; Z91.19 Patient's noncompliance with other medical treatment and regimen
CPT/HCPCS: 36415; 80048; 80053; 80202; 82010; 82962; 83735; 85025; 87040; 87070; 87077; 87186; 87205; 96361; 96365; 96375; 99285; J2543; J3370; J3590; J7030

== ENCOUNTER 2018-07-21 21:24 | Inpatient (IN) | payer BC ==
[2018-07-22] MEDS ORDERED: PIPER/TAZO/NS 3.375gm 3.375 GM/100 ML BAG ONE ×2 (00:03→06:03)
[2018-07-22] MEDS ORDERED: MORPHINE 4 MG/ML SYR ONE (00:03)
[2018-07-22] MEDS ORDERED: NA CHLORIDE 0.9% 250 ML ONE (00:03)
[2018-07-22] MEDS ORDERED: ONDANSETRON 4 MG/2 ML VIAL ONE (00:03)
[2018-07-22] MEDS ORDERED: VANCOMYCIN 1 GM/VIAL ONE (00:03)
[2018-07-22 00:06] LABS: Absolute Lymphocytes (CBC) 2.1 K/uL (0.7-4.9); Absolute Monocytes 1.1 K/uL (0.1-1.3); Absolute Neutrophil 7.8 K/uL (1.8-8.0); Basophils % 0.6 % (0-1.3); Eosinophils % 4.4 % (0-4.4); Hematocrit 35.9 % (39.6-49.0); Lymphocytes % 18.4 % (15.3-44.8); MCH 28.7 pg (27.0-35.0); MCV 84.5 fL (80-100); MPV 6.8 fL (7.6-11.3); Monocytes % 9.3 % (3.3-12.3); RBC Red Blood Cell Count 4.25 M/uL (4.33-5.43)
[2018-07-22 00:11] LABS: Protime INR 1.18
[2018-07-22] MEDS ORDERED: NA CHLORIDE 0.9% 1,000 ML ONE (00:23)
[2018-07-22 00:30] LABS: Albumin 2.9 g/dL (3.4-5.0); Bilirubin Direct 0.1 mg/dL (0-0.2); Bilirubin Total 0.3 mg/dL (0.2-1.0); Potassium 3.7 mmol/L (3.5-5.1); Protein, Total 7.9 g/dL (6.4-8.2)
[2018-07-22] MEDS ORDERED: HYDROMORPHONE HCL 1 MG/ML INJ ONE (01:27)
--- NOTE | 2018-07-22 02:39 | ER ---
Nurse's Notes [facility] Name: Parminder Smiley Age: 28 yrs Sex: Male : 1990 Arrival Date: 07/21/2018 Time: 21:24 Bed 4 Private MD: Kristy Arguelles H Diagnosis: Right Foot Cellulitis;Diabetic Foot UIcer (right) Presentation: 07/21 22:44 Presenting complaint: Patient states: he was just discharged from the hospital for a bb foot infection on Thursday but now he is having severe pain to his right foot he has appt with PCP in the morning but he can't make it. Transition of care: patient was not received from another setting of care. Onset of symptoms was July 21, 2018. Risk Assessment: Do you want to hurt yourself or someone else? Patient reports no desire to harm self or others. Initial Sepsis Screen: Does the patient meet any 2 criteria? No. Patient's initial sepsis screen is negative. Does the patient have a suspected source of infection? Yes: Skin breakdown/wound. Care prior to arrival: None. 22:44 Method Of Arrival: Ambulatory bb 22:44 Acuity: REYMUNDO 2 bb Triage Assessment: 23:00 General: Appears in no apparent distress. Behavior is calm, cooperative. Pain: ak1 Complains of pain in right foot. Historical: - Allergies: 22:49 No Known Allergies; bb - Home Meds: 22:49 Novolog Sub-Q [Active]; lisinopril 20 mg Oral tab 1 tab BID [Active]; Gralise oral oral bb [Active]; ciprofloxacin oral oral [Active]; Doxycycline Oral [Active]; - PMHx: 22:49 Cellulitis; Diabetes - IDDM; Hypertension; bb - PSHx: 22:49 amputation to left foot; bb - Immunization history:: Adult Immunizations up to date. - Social history:: Smoking status: Patient/guardian denies using tobacco, Patient/guardian denies using alcohol, street drugs. - Ebola Screening: : No symptoms or risks identified at this time. - Family history:: not pertinent. - Hospitalizations: : The patient was recently seen at [facility], d/c'd 2 days ago. Screenin:59 Abuse screen: Denies threats or abuse. Denies injuries from another. Nutritional ak1 screening: No deficits noted. Tuberculosis screening: No symptoms or risk factors identified. Fall Risk None identified. Assessment: 23:30 General: Appears in no apparent distress. uncomfortable, Behavior is calm, cooperative, tl2 appropriate for age. General: Denies fever, feeling ill. Pain: Complains of pain in right foot. Neuro: Level of Consciousness is awake, alert, obeys commands, Oriented to person, place, time, situation. Cardiovascular: Denies chest pain. Respiratory: Airway is patent Respiratory effort is even, unlabored, Respiratory pattern is regular, symmetrical. GI: No signs and/or symptoms were reported involving the gastrointestinal system. : No signs and/or symptoms were reported regarding the genitourinary system. Derm: Skin is pink, warm \T\ dry. Wound noted ball of right foot Wound is open on bottom of foot, small amount of bleeding noted. Derm: redness and swelling noted on right foot. Musculoskeletal: Swelling present in right foot. 07/22 01:04 Reassessment: Patient appears in no apparent distress at this time. No changes from tl2 previously documented assessment. Patient and/or family updated on plan of care and expected duration. Pain level reassessed. Patient is alert, oriented x 3, equal unlabored respirations, skin warm/dry/pink. 01:45 Reassessment: Patient appears in no apparent distress at this time. Patient and/or tl2 family updated on plan of care and expected duration. Pain level reassessed. Patient is alert, oriented x 3, equal unlabored respirations, skin warm/dry/pink. pain has improved Patient states feeling better. 03:00 Reassessment: Patient appears in no apparent distress at this time. Patient and/or tl2 family updated on plan of care and expected duration. Pain level reassessed. Patient is alert, oriented x 3, equal unlabored respirations, skin warm/dry/pink. 04:00 Reassessment: Patient appears in no apparent distress at this time. Patient and/or tl2 family updated on plan of care and expected duration. Pain level reassessed. Patient is alert, oriented x 3, equal unlabored respirations, skin warm/dry/pink. 05:28 Reassessment: Patient appears in no apparent distress at this time. Patient and/or tl2 family updated on plan of care and expected duration. Pain level reassessed. Patient is alert, oriented x 3, equal unlabored respirations, skin warm/dry/pink. Pt stable and ready for transport to floor. Vital Signs: 07/21 22:49 BP 121 / 89; Pulse 119; Resp 20 S; Temp 98.7(O); Pulse Ox 100% on R/A; Weight 108.86 kg em (R); Height 6 ft. 2 in. (187.96 cm) (R); Pain 8/10; 07/22 00:02 BP 148 / 105; Pulse 97; Resp 18; Pulse Ox 98% on R/A; tl2 01:04 BP 149 / 97; Pulse 97; Resp 18; Pulse Ox 99% on R/A; tl2 01:45 BP 146 / 94; Pulse 90; Resp 18; Pulse Ox 98% on R/A; tl2 03:00 BP 134 / 88; Pulse 92; Resp 18; Pulse Ox 99% on R/A; tl2 07/21 22:49 Body Mass Index 30.81 (108.86 kg, 187.96 cm) em ED Course: 07/21 21:24 Patient arrived in ED. am2 21:25 Kristy Arguelles DO is Private Physician. am2 22:47 Triage completed. bb 22:49 Arm band placed on. bb 23:00 Patient has correct armband on for positive identification. Bed in low position. Call ak1 light in reach. Side rails up X 1. Pulse ox on. NIBP on. 23:10 Rafael Santizo MD is Attending Physician. wa 23:13 Mely Bennett, ALLYSSA is Primary Nurse. ak1 23:38 Inserted saline lock: 20 gauge in right antecubital area, using aseptic technique. tl2 Blood collected. 07/22 00:04 X-ray completed. Portable x-ray completed in exam room. Patient tolerated procedure kw well. 00:10 Foot Right 3 View XRAY In Process Unspecified. EDMS 02:37 Brittnee Matamoros MD is Hospitalizing Provider. wa 03:00 No provider procedures requiring assistance completed. Patient admitted, IV remains in tl2 place. Administered Medications: 00:02 Drug: morphine 4 mg Route: IVP; Site: right antecubital; tl2 00:50 Follow up: Response: No adverse reaction; Pain is unchanged, physician notified tl2 00:02 Drug: Zofran 4 mg Route: IVP; Site: right antecubital; tl2 01:00 Follow up: Response: No adverse reaction; Nausea is decreased tl2 00:25 Drug: Zosyn 3.375 grams Route: IVPB; Infused Over: 60 mins; Site: right antecubital; tl2 03:27 Follow up: IV Status: Completed infusion tl2 00:25 Drug: NS 0.9% 1000 ml Route: IV; Rate: 1000 ml; Site: right antecubital; tl2 01:41 Follow up: IV Status: Completed infusion; IV Intake: 1000ml tl2 01:20 Drug: Dilaudid 1 mg Route: IVP; Site: right antecubital; tl2 01:40 Follow up: Response: No adverse reaction; Pain is decreased tl2 01:41 Drug: vancoMYCIN 1 grams Route: IVPB; Infused Over: 2 hrs; Site: right antecubital; tl2 03:27 Follow up: IV Status: Completed infusion tl2 Point of Care Testing: Blood Glucose: 00:11 Blood Glucose: High (>450 mg/dL); tl2 02:00 Blood Glucose: 389 mg/dL; tl2 Ranges: Intake: 01:41 IV: 1000ml; Total: 1000ml. tl2 Outcome: 02:38 Decision to Hospitalize by Provider. wa 03:00 Admitted to Med/surg accompanied by tech, via wheelchair, room 210, with chart, Report tl2 called to ALLYSSA Mckinnon 03:00 Condition: stable 03:00 Discharge instructions given to patient, Instructed on the need for admit. 05:32 Patient left the ED. tl2 Signatures: Dispatcher [employer] EDMS Leandro Jose, RECEIVABLE EXECUTIVE RECEIVABLE EXECUTIVE Ioana Rojas RN RN Marion Lentz Amber, RN RN ak1 Nicky Gill RN RN tl2 Sravani Lorenzo am2 Rafael Santizo MD MD wa Corrections: (The following items were deleted from the chart) 07/21 23:16 22:49 Pulse 119bpm; Resp 20bpm; Spontaneous; Pulse Ox 100% RA; Temp 98.7F Oral; 108.86 bb kg Reported; Height 6 ft. 2 in. Reported; BMI: 30.8; Pain 8/10; bb 23:22 22:49 Pulse 119bpm; Resp 20bpm; Spontaneous; Pulse Ox 100% RA; Temp 98.7F Oral; 108.86 em kg Reported; Height 6 ft. 2 in. Reported; BMI: 30.8; Pain 04/30; bb 07/22 05:28 01:45 Reassessment: Patient appears in no apparent distress at this time. Patient tl2 and/or family updated on plan of care and expected duration. Pain level reassessed. Patient is alert, oriented x 3, equal unlabored respirations, skin warm/dry/pink. Patient states feeling better. tl2
--- NOTE | 2018-07-22 02:39 | EDPHYS ---
Physician Documentation [facility] Name: Parminder Smiley Age: 28 yrs Sex: Male : 1990 Arrival Date: 07/21/2018 Time: 21:24 Bed 4 Private MD: Kristy Arguelles H ED Physician Rafael Santizo HPI: 07/22 02:58 This 28 yrs old Male presents to ER via Ambulatory with complaints of Foot wa Pain - infection. 02:58 The patient presents with pain, that is acute, tenderness, redness right foot. The wa complaints affect the right foot. Context: the patient can partially bear weight, the patient is able to ambulate, with moderate difficulty, h/o DM. recently discharged for same with po abx. states pain, swelling and redness is worse. . Onset: The symptoms/episode began/occurred 1 week(s) ago. Modifying factors: The symptoms are alleviated by nothing, the symptoms are aggravated by weight bearing. Associated signs and symptoms: The patient has no apparent associated signs or symptoms. Severity of symptoms: At their worst the symptoms were moderate, in the emergency department the symptoms are actually worse. The patient has not experienced similar symptoms in the past, The patient has experienced similar episodes in the past. The patient has been recently seen by a physician: Dr. Veloz. Historical: - Allergies: 07/21 22:49 No Known Allergies; bb - Home Meds: 22:49 Novolog Sub-Q [Active]; lisinopril 20 mg Oral tab 1 tab BID [Active]; Gralise oral oral bb [Active]; ciprofloxacin oral oral [Active]; Doxycycline Oral [Active]; - PMHx: 22:49 Cellulitis; Diabetes - IDDM; Hypertension; bb - PSHx: 22:49 amputation to left foot; bb - Immunization history:: Adult Immunizations up to date. - Social history:: Smoking status: Patient/guardian denies using tobacco, Patient/guardian denies using alcohol, street drugs. - Ebola Screening: : No symptoms or risks identified at this time. - Family history:: not pertinent. - Hospitalizations: : The patient was recently seen at [facility], d/c'd 2 days ago. ROS: 07/22 03:03 MS/extremity: Positive for erythema, pain, swelling, tenderness, of the right foot. wa 03:04 Constitutional: Negative for fever, chills, and weight loss, Eyes: Negative for injury, wa pain, redness, and discharge, ENT: Negative for injury, pain, and discharge, Neck: Negative for injury, pain, and swelling, Cardiovascular: Negative for chest pain, palpitations, and edema, Respiratory: Negative for shortness of breath, cough, wheezing, and pleuritic chest pain, Abdomen/GI: Negative for abdominal pain, nausea, vomiting, diarrhea, and constipation, Back: Negative for injury and pain, : Negative for injury, bleeding, discharge, and swelling, Neuro: Negative for headache, weakness, numbness, tingling, and seizure, Psych: Negative for depression, anxiety, suicide ideation, homicidal ideation, and hallucinations. 03:04 MS/extremity: Positive for erythema, pain, swelling, tenderness, of the right foot. Exam: 03:04 Constitutional: This is a well developed, well nourished patient who is awake, alert, wa and in no acute distress. Head/Face: Normocephalic, atraumatic. Eyes: Pupils equal round and reactive to light, extra-ocular motions intact. Lids and lashes normal. Conjunctiva and sclera are non-icteric and not injected. Cornea within normal limits. Periorbital areas with no swelling, redness, or edema. ENT: Nares patent. No nasal discharge, no septal abnormalities noted. Tympanic membranes are normal and external auditory canals are clear. Oropharynx with no redness, swelling, or masses, exudates, or evidence of obstruction, uvula midline. Mucous membranes moist. Neck: Trachea midline, no thyromegaly or masses palpated, and no cervical lymphadenopathy. Supple, full range of motion without nuchal rigidity, or vertebral point tenderness. No Meningismus. Chest/axilla: Normal chest wall appearance and motion. Nontender with no deformity. No lesions are appreciated. Cardiovascular: Regular rate and rhythm with a normal S1 and S2. No gallops, murmurs, or rubs. Normal PMI, no JVD. No pulse deficits. Respiratory: Lungs have equal breath sounds bilaterally, clear to auscultation and percussion. No rales, rhonchi or wheezes noted. No increased work of breathing, no retractions or nasal flaring. Abdomen/GI: Soft, non-tender, with normal bowel sounds. No distension or tympany. No guarding or rebound. No evidence of tenderness throughout. Back: No spinal tenderness. No costovertebral tenderness. Full range of motion. Neuro: Awake and alert, GCS 15, oriented to person, place, time, and situation. Cranial nerves II-XII grossly intact. Motor strength 5/5 in all extremities. Sensory grossly intact. Cerebellar exam normal. Normal gait. Psych: Awake, alert, with orientation to person, place and time. Behavior, mood, and affect are within normal limits. 03:04 Skin: redness, swelling, increased warmth the R foot, dorsum and plantar aspect. noted ulcer at the ball of the right foot. Vital Signs: 07/21 22:49 BP 121 / 89; Pulse 119; Resp 20 S; Temp 98.7(O); Pulse Ox 100% on R/A; Weight 108.86 kg em (R); Height 6 ft. 2 in. (187.96 cm) (R); Pain 8/10; 07/22 00:02 BP 148 / 105; Pulse 97; Resp 18; Pulse Ox 98% on R/A; tl2 01:04 BP 149 / 97; Pulse 97; Resp 18; Pulse Ox 99% on R/A; tl2 01:45 BP 146 / 94; Pulse 90; Resp 18; Pulse Ox 98% on R/A; tl2 03:00 BP 134 / 88; Pulse 92; Resp 18; Pulse Ox 99% on R/A; tl2 07/21 22:49 Body Mass Index 30.81 (108.86 kg, 187.96 cm) em MDM: 07/21 23:[address] 07/22 03:05 Differential diagnosis: cellulitis, abscess. DM foot ulcer. labs, xray. abx. will wa admit. Data reviewed: vital signs, nurses notes, lab test result(s), hyperglycemia. Test interpretation: by ED physician or midlevel provider: . 03:07 Physician consultation: Lucio Middleton MD. Admission orders: after a detailed discussion of ct the patient's condition and case, the admit orders are written by al. 07/21 23:40 Order name: Basic Metabolic Panel; Complete Time: 02:24 ct 07/21 23:40 Order name: Blood Culture Adult (2) ct 07/21 23:40 Order name: CBC with Diff ct 07/21 23:40 Order name: Lactate; Complete Time: 02:24 ct 07/21 23:40 Order name: LFT's; Complete Time: 02:24 ct 07/21 23:40 Order name: Procalcitonin; Complete Time: 02:24 ct 07/21 23:40 Order name: Protime (+inr); Complete Time: 02:24 ct 07/21 23:40 Order name: Urine Microscopic Only ct 07/21 23:40 Order name: Foot Right [address] 07/22 03:26 Order name: Urine Dipstick--Ancillary (enter results) [facility] 07/22 04:45 Order name: Urine Dipstick-Ancillary EDFL 07/21 23:40 Order name: Accucheck; Complete Time: 00:25 ct 07/21 23:40 Order name: IV Saline Lock - Large Bore; Complete Time: 23:41 ct 07/21 23:40 Order name: Labs collected and sent; Complete Time: 23:42 ct 07/21 23:40 Order name: O2 Sat Monitoring; Complete Time: 23:42 ct 07/21 23:40 Order name: Urine Dipstick-Ancillary (obtain specimen); Complete Time: 02:34 ct Administered Medications: 00:02 Drug: morphine 4 mg Route: IVP; Site: right antecubital; tl2 00:50 Follow up: Response: No adverse reaction; Pain is unchanged, physician notified tl2 00:02 Drug: Zofran 4 mg Route: IVP; Site: right antecubital; tl2 01:00 Follow up: Response: No adverse reaction; Nausea is decreased tl2 00:25 Drug: Zosyn 3.375 grams Route: IVPB; Infused Over: 60 mins; Site: right antecubital; tl2 03:27 Follow up: IV Status: Completed infusion tl2 00:25 Drug: NS 0.9% 1000 ml Route: IV; Rate: 1000 ml; Site: right antecubital; tl2 01:41 Follow up: IV Status: Completed infusion; IV Intake: 1000ml tl2 01:20 Drug: Dilaudid 1 mg Route: IVP; Site: right antecubital; tl2 01:40 Follow up: Response: No adverse reaction; Pain is decreased tl2 01:41 Drug: vancoMYCIN 1 grams Route: IVPB; Infused Over: 2 hrs; Site: right antecubital; tl2 03:27 Follow up: IV Status: Completed infusion tl2 Point of Care Testing: Blood Glucose: 00:11 Blood Glucose: High (>450 mg/dL); tl2 02:00 Blood Glucose: 389 mg/dL; tl2 Ranges: Critical Glucose Levels:Adult <50 mg/dl or >400 mg/dl <40 mg/dl or >180 mg/dl Disposition: 07/22/18 02:38 Hospitalization ordered by Brittnee Matamoros for Inpatient Admission. Preliminary diagnosis are Right Foot Cellulitis, Diabetic Foot UIcer (right). - Bed requested for Telemetry/MedSurg (Inpatient). - Status is Inpatient Admission. tl2 - Condition is Stable. - Problem is new. - Symptoms have improved. UTI on Admission? No Signatures: Dispatcher [employer] EDMS Britany Weir RN RN Ioana Still RN RN bb Knox, Taylor, RN RN [facility] Rafael Santizo MD MD ct Corrections: (The following items were deleted from the chart) 04:58 02:38 Hospitalization Ordered by Brittnee Matamoros MD for Inpatient Admission. Preliminary diagnosis is Right Foot Cellulitis; Diabetic Foot UIcer (right). Bed requested for Telemetry/MedSurg (Inpatient). Status is Inpatient Admission. Condition is Stable. Problem is new. Symptoms have improved. UTI on Admission? No. ct 05:32 04:58 07/22/2018 02:38 Hospitalization Ordered by Brittnee Matamoros MD for Inpatient tl2 Admission. Preliminary diagnosis is Right Foot Cellulitis; Diabetic Foot UIcer (right). Bed requested for Telemetry/MedSurg (Inpatient). Status is Inpatient Admission. Condition is Stable. Problem is new. Symptoms have improved. UTI on Admission? No. kl
[2018-07-22 03:01] LABS: Urine Bacteria <20 /HPF (NONE SEEN); Urine Culture Reflex Order NOT NEEDED
--- NOTE | 2018-07-22 03:36 | P.HP ---
Certification for Inpatient Patient admitted to: Inpatient With expected LOS: >2 Midnights Practitioner: I am a practitioner with admitting privileges, knowledge of patient current condition, hospital course, and medical plan of care. Services: Services provided to patient in accordance with Admission requirements found in Title 42 Section 412.3 of the Code of Federal Regulations Patient History Date of Service: 07/22/18 Reason for admission: Diabetic wound infection History of Present Illness: Mr Smiley is a 28-year-old male with history of diabetes mellitus, hypertension, who was admitted to the hospital a few days ago due to right foot cellulitis secondary to a diabetic wound. He was treated with IV antibiotics and then switch to p.o. after receive wound culture report (Staph Aureus and Proteus mirabilis). MRI of the right foot showed no sign of osteomyelitis. After he was discharged home 2 days ago, he was noticed increase in swelling, pain, blistering 1st and 2nd toe webspace. He denied any fever or chills. Lab work remarkable for leukocytosis 11.7 K, lactate and procalcitonin within normal limits. Allergies No Known Allergies Allergy (Verified 06/27/15 21:39) Home medications list reviewed: Yes Home Medications: Lisinopril [Prinivil*] 20 mg PO BID 07/12/17 Hydrocodone 10/APAP 325 [[place] [address]*] 1 tab PO Q4HP PRN #20 tab 07/16/17 Gabapentin [Gralise] 3 tab PO BID 07/15/18 Insulin Aspart Protam & Aspart [Novolog Mix 70-30 Flexpen Syrn] 13 units SQ BID 07/15/18 Ciprofloxacin HCl [Cipro 500 MG Tablet] 500 mg PO Q12H #30 tab 07/19/18 Doxycycline Hyclate [Vibramycin] 100 mg PO Q12H #30 capsule 07/19/18 - Past Medical/Surgical History Diabetic: Yes -: DM -: DM -: HTN -: OSTEOMYELITIS -: LEFT FOOT SURGERY -: back surgery - Family History Father -: Diabetes Notes: dialysis/ Mother -: Stroke - Social History Smoking Status: Never smoker Alcohol use: No CD- Drugs: No Caffeine use: Yes Place of Residence: Home Review of Systems 10-point ROS is otherwise unremarkable Physical Examination - Physical Exam General: Alert, In no apparent distress HEENT: Atraumatic, PERRLA, Mucous membr. moist/pink, EOMI, Sclerae nonicteric Neck: Supple, 2+ carotid pulse no bruit, No LAD, Without JVD or thyroid abnormality Respiratory: Clear to auscultation bilaterally, Normal air movement Cardiovascular: Regular rate/rhythm, Normal S1 S2 Gastrointestinal: Normal bowel sounds, No tenderness Musculoskeletal: No tenderness Integumentary: Skin lesion, Diabetic ulcer, Other (Yellowish discoloration of the webspace between 1st and 2nd toe of the right foot) Neurological: Normal speech, Normal strength at 5/5 x4 extr, Normal tone, Normal affect Lymphatics: No axilla or inguinal lymphadenopathy - Studies Laboratory Data (last 24 hrs) 07/21/18 23:40: PT 14.0 H, INR 1.18 07/21/18 23:40: WBC 11.7 H D, Hgb 12.2 L, Hct 35.9 L, Plt Count 451 H 07/21/18 23:40: Sodium 133 L, Potassium 3.7, BUN 13, Creatinine 1.20, Glucose 521 H*, Total Bilirubin 0.3, AST 9 L, ALT 14, Alkaline Phosphatase 111 Assessment and Plan - Problems (Diagnosis) (1) Cellulitis Onset Date: 07/16/18 Current Visit: No Status: Acute Qualifiers: Site of cellulitis: extremity Site of cellulitis of extremity: lower extremity Laterality: right Qualified Code(s): L03.115 - Cellulitis of right lower limb (2) Hyperglycemia Current Visit: No Status: Acute (3) Ulcer of foot due to diabetes Onset Date: 06/04/17 Current Visit: No Status: Acute Qualifiers: Diabetic foot ulcer location: other Diabetes mellitus type: type 1 Laterality: right Non-pressure ulcer stage: with fat layer exposed Qualified Code(s): E10.621 - Type 1 diabetes mellitus with foot ulcer; L97.512 - Non-pressure chronic ulcer of other part of right foot with fat layer exposed (4) Diabetes mellitus type 1 Onset Date: 06/04/17 Current Visit: No Status: Chronic - Plan The patient will be admitted to the hospital due to cellulitis secondary to diabetic wound infection. According to previous wound culture report and sensitivity will continue with IV vancomycin and Zosyn for Staph Aereus and Proteus Mirabillis. Blood sugar is elevated, no sign of DKA. Continue with SSI q.6 hr seen the patient is NPO for I&D in the morning. Surgery consult done. - Advance Directives Does patient have a Living Will: No Does patient have a Durable POA for Healthcare: No - Code Status/Comfort Care Code Status Assessed: Yes Code Status: Full Code
[2018-07-22 04:45] LABS: Urine Blood 2+ (NEG); Urine Glucose 2+ (NEG); Urine Protein 1+ (NEG)
[2018-07-22] MEDS: PIPER/TAZO/NS 3.375gm 3.375 GM/100 ML BAG IVPB SCH ×3 (06:00→18:12)
[2018-07-22] MEDS: NA CHLORIDE 0.9% 1,000 ML IV SCH ×2 (06:01→18:11)
[2018-07-22] MEDS: MORPHINE 2 MG/ML SYR IV PRN ×2 (06:02→16:17)
[2018-07-22] MEDS ORDERED: VANCOMYCIN/NS 1 gm 1 GM/250 ML BAG IVPB ONE (06:15)
[2018-07-22] MEDS: INSULIN -REGULAR HUMAN 50 UNIT/0.5 ML ML SQ SCH ×4 (06:16→22:20)
[2018-07-22] MEDS ORDERED: INFLUENZA VACCINE (for 3y+) 0.5 ML DOSE IMVAC ONE (09:00)
[2018-07-22] MEDS ORDERED: MIDAZOLAM HCL 2 MG/2 ML INJ ONE (09:10)
[2018-07-22] MEDS ORDERED: PROPOFOL 200 MG/20 ML VIAL IV ONE (09:10)
[2018-07-22] MEDS ORDERED: FENTANYL CITR 100 MCG/2 ML ONE (09:10)
[2018-07-22] MEDS ORDERED: LIDOCAINE 2% MPF 5 ML VIAL ONE (09:11)
[2018-07-22] MEDS ORDERED: COLLAGENASE 30 GM OINTMENT TOP ONE (09:18)
--- NOTE | 2018-07-22 09:18 | RAD REPORT ---
EXAM DESCRIPTION: RAD - Foot Right 3 View - 07/22/2018 12:07 am CLINICAL HISTORY: diabetic foot ulcer. r/o bony involvement COMPARISON: Foot Right Wo Cont dated 07/16/2018; Foot Right 3 View dated 07/15/2018 FINDINGS: Prominent soft tissue swelling with ulceration is present in the forefoot. There is subtle possible demineralization of the fifth metacarpal head along the plantar aspect which would raise schuster spicion for osteomyelitis. No subcutaneous gas is present. MR imaging may be of value for confirmatio n.
[2018-07-22] MEDS ORDERED: KETOROLAC 30 MG/ML INJ ONE (09:49)
[2018-07-22] MEDS ORDERED: HYDROCODONE/APAP 10/325 TAB PO PRN (09:55)
--- NOTE | 2018-07-22 10:02 | P.OP ---
Preoperative diagnosis: Abscess and cellulitis Right foot Postoperative diagnosis: same Primary procedure: I and D and Debridement R foot Abscess Anesthesia: gen Estimated blood loss: min Specimen: pus Findings: as above Complications: None Transferred to: Recovery Room Condition: Good
[2018-07-22] MEDS ORDERED: CHLORHEXIDINE GLUCO 4% 120 ML TOP SCH (10:17)
--- NOTE | 2018-07-22 12:52 | PREOPCON ---
Date of Consultation: 07/22/2018 Reason: Right foot infection. History Of Present Illness: The patient is a 28-year-old gentleman who was admitted a week ago from the wound clinic for cellulitis of his right foot. He was treated with IV antibiotics. He did well. Swelling and redness improved. He was sent home on oral antibiotics on Thursday; however, yesterday he states that the pain became worse. He came back to the emergency room. He is awake, alert. Howard es any drainage; however, there is more swelling and more pain and fever in the area. No sore throat , runny nose, cough, headaches, or dizziness. No chest pain. No fever or chills. Review of Systems: Otherwise unremarkable. Past Medical History: Significant for type 1 diabetes, hypertension, history of osteomyelitis. Past Surgical History: Multiple I and D and foot surgeries and left foot toe amputation. Allergies: NO ALLERGIES. Social History: He does not smoke or drink. Family History: Significant for diabetes and stroke. Physical Examination: Vital Signs: Stable. He is afebrile. He is awake, alert, oriented x3. Head and Neck: Cranial nerves 2 through 12 grossly within normal limits. No neck masses. No JVD. Throat clear. Neck is supple. Chest: Clear. Heart: S1, S2. Abdomen: Soft. Extremity: Slightly diminished dorsalis pedis and posterior tibial pulses on the right foot. In the first web space, there is fluctuance. There is pus underneath the skin that can be easily palpated. There is erythema, warmth, and edema on the dorsum of the foot extending towards the ankle. Laboratory Data: White count is 11.7 with a left shift. INR is normal. His sugar was 521. Both ca lcitonin and lactic acid were normal. Sugar this morning was 310. Assessment: Right foot diabetic abscess and cellulitis. Recommendations: Continue IV antibiotics as ordered. We will take the patient to the OR for incisio n, drainage, and debridement. The patient understands the risks, benefits, and alternatives and agre es to procedure. /MODL Voice ID: [id number] Report ID: [id number]
[2018-07-22] MEDS: HYDROCODONE/APAP 7.5/325 MG TAB PO PRN (14:46)
[2018-07-22] MEDS: VANCOMYCIN 1.75 GM in NA CHLORIDE 0.9% 500 ML IVPB SCH (18:11)
[2018-07-22] MEDS ORDERED: GLUCAGON 1 MG/VIAL IM PRN (18:15)
[2018-07-22] MEDS ORDERED: D50W 25 GM/50 ML SYRINGE IV PRN (18:15)
[2018-07-22] MEDS ORDERED: KETOROLAC 30 MG/ML INJ IV PRN (19:34)
--- NOTE | 2018-07-22 20:19 | OP ---
Date of Procedure: 07/22/2018 Surgeon: Lucio Middleton MD Preoperative Diagnosis: Abscess cellulitis, right foot. Postoperative Diagnosis: Abscess cellulitis, right foot. Procedure: Incision, drainage and debridement, right foot abscess. Estimated Blood Loss: Minimal. Specimen: Pus. Findings: As above. Anesthesia: General. Complications: None. Disposition: The patient tolerated the procedure in stable condition and taken to Recovery in good g eneral condition. Procedure In Detail: The patient was brought to the OR and placed in the supine. General anesthesia was begun. The patient was prepped and draped in usual sterile fashion. Then, in the first web spa ce, a 15-blade was used to make approximately a 4 cm incision. Pus evacuated. Loculations broken up . Necrotic tissue debrided. Wound irrigated. Bleeding controlled with cautery. Wet-to-dry normal saline dressing change was applied. He had callus on the plantar aspect, which were debrided sharply . After sterile dressing was applied, the patient was awakened and taken to Recovery in good general condition. JACOBY/FLORI Voice ID: [id number] Report ID: [id number]
[2018-07-22] MEDS ORDERED: HUMALOG MIX 75/25 100 UNITS/ML SQ SCH (21:00)
[2018-07-22] MEDS ORDERED: GABAPENTIN 300 MG CAP PO SCH (21:00)
[2018-07-22] MEDS: MUPIROCIN 2% OINT 22GM TUBE TOP SCH (21:00)
[2018-07-22] MEDS ORDERED: INSULIN GLARGINE 100 UNITS/ML SQ SCH (21:00)
[2018-07-22] MEDS: GABAPENTIN 300 MG CAP PO SCH (22:20)
[2018-07-22] MEDS: HYDROMORPHONE HCL 1 MG/ML INJ IV PRN (22:21)
--- NOTE | 2018-07-22 22:26 | PN ---
Date of Progress Note: 07/22/2018 Subjective: The patient seen and examined. Chart reviewed and case discussed with RN, the patient, and Dr. Middleton. The patient went for debridement today by Dr. Middleton. Tolerated procedure well. The patient is still complaining of some pain postprocedure. Review of Systems: Negative except as above. Medications: List reviewed. Physical Examination: Vital Signs: Temperature 97.3, heart rate 78, blood pressure 136/94, respirations 17, O2 100% on hansa m air. General: Awake, alert, oriented x3, some mild distress. CV: S1, S2. No murmurs. Regular rate and rhythm. Peripheral pulses present. Respiratory: Moving air well bilaterally. No wheezing. Gastrointestinal: Abdomen is soft, nontender, nondistended. Positive bowel sounds. Extremities: No clubbing, cyanosis, or edema. Musculoskeletal: Right foot incision site clean, dry, intact, and bandaged. Neurologic: Nonfocal. Laboratory Data: Glucose 310, 317, 303, 315. Hemoglobin A1c is 14.1%. Blood cultures pending. Blo od cultures from previous visit on 07/15/2018 growing Staph aureus from the right foot wound and Prot eus mirabilis. Foot x-ray, prominent soft tissue swelling with ulceration present in the forefoot, s ubtle demineralization of the fifth metacarpal head along with plantar aspect which would raise suspi cion for osteomyelitis. No subcutaneous gas is present. MRI done on the 07/16/2018 of the right isidra t showed diffuse edema within the subcutaneous tissues consistent with cellulitis, no evidence of ost eomyelitis. Assessment And Plan: A 28-year-old male with: 1.Diabetic foot wound on the right foot. 2.Cellulitis, right lower extremity. We will continue with IV antibiotics. Follow up on cultures. Previous cultures from recent visit growing Staph aureus and Proteus. 3.Diabetes mellitus type 1 with hyperglycemia, uncontrolled. Hemoglobin A1c 14.1%. We will adjust insulin dose. 4.Noncompliance with diet. 5.Failed outpatient treatment. 6.Gastrointestinal and deep venous thrombosis prophylaxis, PPI and SCDs. No chemical anticoagulatio n until 24 hours post surgery. Plan: Resume home medications as appropriate. We will adjust insulin dose. The patient will likely need IV antibiotics as he has failed outpatient antibiotic therapy. We will discuss further with Dr Cassandra Middleton. MRI on 07/16 did not show any osteomyelitis; however, foot x-ray this visit does not show a ny gas or free air. Will need minimum of 2 weeks of IV antibiotics. May need to repeat MRI. We rajni l discuss further with Dr. Middleton. Continue IV antibiotics. Disposition likely home with IV antibiot ics in the next 48 to 72 hours depending on clinical response. /FLORI Voice ID: [id number] Report ID: [id number]
[2018-07-23] MEDS: NA CHLORIDE 0.9% 1,000 ML IV SCH ×3 (01:18→21:18)
[2018-07-23] MEDS: PIPER/TAZO/NS 3.375gm 3.375 GM/100 ML BAG IVPB SCH ×4 (01:26→18:00)
[2018-07-23] MEDS: VANCOMYCIN 1.75 GM in NA CHLORIDE 0.9% 500 ML IVPB SCH (05:57)
[2018-07-23 06:20] LABS: BUN Blood Urea Nitrogen 8 mg/dL (7-18); Bicarbonate 29 mmol/L (21-32); Glucose Level 356 mg/dL (74-106); Potassium 3.2 mmol/L (3.5-5.1); Sodium Level 138 mmol/L (136-145)
[2018-07-23 06:22] VITALS: BMI 29.0
[2018-07-23 06:25] LABS: Absolute Lymphocytes (CBC) 2.2 K/uL (0.7-4.9); Absolute Monocytes 0.6 K/uL (0.1-1.3); Absolute Neutrophil 3.9 K/uL (1.8-8.0); Basophils % 0.7 % (0-1.3); Eosinophils % 8.3 % (0-4.4); Hematocrit 33.2 % (39.6-49.0); Lymphocytes % 29.8 % (15.3-44.8); MCH 28.9 pg (27.0-35.0); MPV 6.4 fL (7.6-11.3); RBC Red Blood Cell Count 3.95 M/uL (4.33-5.43)
[2018-07-23] MEDS ORDERED: INSULIN LISPRO 100 UNIT/1 ML SQ SCH ×2 (08:00→12:00)
[2018-07-23] MEDS: INSULIN -REGULAR HUMAN 50 UNIT/0.5 ML ML SQ SCH ×4 (08:43→21:08)
[2018-07-23] MEDS: GABAPENTIN 300 MG CAP PO SCH ×2 (08:47→20:28)
[2018-07-23] MEDS: LISINOPRIL 20 MG TAB PO SCH (08:47)
[2018-07-23] MEDS ORDERED: POTASSIUM 25 MEQ EFFERV TAB PO ONE (09:00)
[2018-07-23] MEDS: HYDROCODONE/APAP 7.5/325 MG TAB PO PRN ×2 (09:00→20:27)
[2018-07-23] MEDS: MUPIROCIN 2% OINT 22GM TUBE TOP SCH ×2 (10:53→21:12)
[2018-07-23] MEDS: HYDROMORPHONE HCL 1 MG/ML INJ IV PRN ×2 (11:01→21:46)
--- NOTE | 2018-07-23 12:24 | PN ---
Date of Progress Note: 07/23/2018 Subjective: The patient is awake and alert. No complaint. Pain is controlled. Objective: Vital Signs: Stable. Afebrile. Examination of the right foot reveals the wound to be clean. There is no purulence. There is still edema and erythema surrounding the foot, but no other fluctuance that can be seen. The wounds are cl baylee. Laboratory Data: White count is normal. Cultures are pending. Sugar is still elevated. Assessment: Status post incision and drainage and debridement, right foot abscess. Recommendations: Continue IV antibiotics as ordered. Check cultures. Adjust antibiotics accordingl y. Wound care is ordered. PICC line. The patient will need long-term IV antibiotics. At least 2-4 weeks and then determine whether he needs it further. JACOBY/FLORI Voice ID: [id number] Report ID: [id number]
[2018-07-23] MEDS ORDERED: GLUCAGON 1 MG/VIAL IM PRN (12:46)
[2018-07-23] MEDS ORDERED: D50W 25 GM/50 ML SYRINGE IV PRN (12:46)
[2018-07-23] MEDS: INSULIN LISPRO 100 UNIT/1 ML SQ SCH (17:59)
--- NOTE | 2018-07-23 20:00 | PN ---
Date of Progress Note: 07/23/2018 History: The patient seen and examined. Chart reviewed and case discussed with RN and Dr. Middleton. I explained to the patient that he may need IV antibiotics given his failure of outpatient treatment. He voices understanding. States his pain is controlled, however, still not completely resolved, sta ting his pain level at 4. Otherwise, doing well, tolerating a diet. No nausea or vomiting. No feve rs or chills. No acute events overnight. Review of Systems: Negative except as above. Medications: List reviewed. Physical Examination: Vital Signs: Temperature 97.6, heart rate 74, blood pressure 144/92, respirations 18, O2 98% on room air. General: Awake, alert, oriented x3, in some mild distress due to pain, ill-appearing male. CV: S1 and S2. Regular rate and rhythm. Peripheral pulses present. Respiratory: Moving air well bilaterally. No wheezing. Gastrointestinal: Abdomen is soft, nontender, nondistended. Positive bowel sounds. Extremities: No clubbing or cyanosis. The patient does have some edema of the right foot. Skin: Right foot incision site clean, dry, intact. No drainage. Neurologic: Nonfocal. Laboratory Data: Sodium 138, potassium 3.2, chloride 102, CO2 29, BUN 8, creatinine 0.6, glucose 356 , calcium 8.4. Hemoglobin A1c is 14.1%. Repeat potassium level is 3.5. WBC 7.2, H and H 11.4 and 3 3.2, platelets 404, neutrophils 53%. Blood culture no growth to date. Wound culture 2+ mixed skin f zenon. Anaerobic cultures pending. Assessment And Plan: A 28-year-old male with: 1.Diabetic foot wound on the right. We will continue antibiotics. Failed outpatient treatment. We will need long-term IV antibiotics for minimum of 2 weeks. We will obtain PICC line and continue va ncomycin and Zosyn for [address] Middleton's input. The patient is status post incision a nd drainage postoperative day #1. 2.Cellulitis, right lower extremity, improving. Cultures negative to date. Previous cultures growi ng Staphylococcus aureus and Proteus, improving. 3.Diabetes mellitus type 1 with hyperglycemia, uncontrolled. Hemoglobin A1c is 14.1%. Insulin dose was adjusted again. We will increase Lantus to double the dose and increase premeal insulin. The p atient was counseled extensively. Diabetic education. 4.Noncompliance with diet. 5.Failed outpatient treatment. 6.Gastrointestinal and deep vein thrombosis prophylaxis with PPI, and we will start Lovenox as he is 24 hours post surgery. Plan: We will discuss with Social Work regarding IV antibiotics setup depending on culture results. JATIN Voice ID: [id number] Report ID: [id number]
[2018-07-23] MEDS: INSULIN GLARGINE 100 UNITS/ML SQ SCH (21:08)
[2018-07-23] MEDS ORDERED: VANCOMYCIN 1.75 GM in NA CHLORIDE 0.9% 500 ML IVPB SCH (23:00)
[2018-07-24] MEDS: PIPER/TAZO/NS 3.375gm 3.375 GM/100 ML BAG IVPB SCH ×3 (01:18→17:00)
[2018-07-24] MEDS: NA CHLORIDE 0.9% 1,000 ML IV SCH ×2 (05:25→17:18)
[2018-07-24 06:25] LABS: BUN Blood Urea Nitrogen 4 mg/dL (7-18); Bicarbonate 32 mmol/L (21-32); Glucose Level 219 mg/dL (74-106); Potassium 3.1 mmol/L (3.5-5.1); Sodium Level 141 mmol/L (136-145)
[2018-07-24 06:56] LABS: Magnesium 1.7 mg/dL (1.8-2.4)
[2018-07-24] MEDS: INSULIN -REGULAR HUMAN 50 UNIT/0.5 ML ML SQ SCH ×4 (07:30→20:44)
--- NOTE | 2018-07-24 08:20 | RAD REPORT ---
EXAM DESCRIPTION: RAD - Chest Single View - 07/24/2018 2:17 am CLINICAL HISTORY: Device placement PICC line placement COMPARISON: March 2017 FINDINGS: A PICC line has been inserted with its tip in the proximal superior vena cava. The lungs appear clear of acute infiltrate. The heart is normal size. IMPRESSION: PICC line with its tip in the superior vena cava
[2018-07-24] MEDS ORDERED: POTASSIUM 25 MEQ EFFERV TAB PO ONE (09:00)
[2018-07-24] MEDS: MUPIROCIN 2% OINT 22GM TUBE TOP SCH ×2 (09:00→20:44)
[2018-07-24] MEDS: INSULIN LISPRO 100 UNIT/1 ML SQ SCH ×3 (09:08→17:00)
[2018-07-24] MEDS: GABAPENTIN 300 MG CAP PO SCH ×2 (09:09→20:34)
[2018-07-24] MEDS: HYDROCODONE/APAP 7.5/325 MG TAB PO PRN ×2 (09:10→14:38)
[2018-07-24] MEDS: LISINOPRIL 20 MG TAB PO SCH (09:10)
[2018-07-24] MEDS: HYDROMORPHONE HCL 1 MG/ML INJ IV PRN ×3 (10:14→20:34)
[2018-07-24] MEDS: ONDANSETRON 4 MG/2 ML VIAL IV PRN (12:11)
[2018-07-24] MEDS: VANCOMYCIN 2 GM in NA CHLORIDE 0.9% 500 ML IVPB SCH ×2 (12:13→22:14)
--- NOTE | 2018-07-24 13:55 | PN ---
Date of Progress Note: 07/24/2018 Subjective: The patient is awake, alert, and getting a little bit of pain on the right foot. No fev er or chills. Objective: Vital Signs: Stable. Afebrile. Examination of the wound reveals less edema and erythema, but there is still edema present. There is no purulence from the wound. The wound has good granulation tissue in it now. Laboratory Data: Cultures reviewed. Staph aureus, sensitive to vancomycin. Assessment: Status post incision and drainage, right foot abscess. Recommendation: PICC line, 6 weeks IV antibiotics. This is a very bad infection for this patient. Failed outpatient oral antibiotic treatment. Wound care as ordered. Discharge planning. /MODL Voice ID: [id number] Report ID: [id number]
--- NOTE | 2018-07-24 16:07 | PN ---
Date of Progress Note: 07/24/2018 History: The patient is seen and examined. Chart reviewed and case discussed with RN. The patient is complaining of headache. Otherwise, foot pain is still about a 4. No nausea, vomiting, fevers, o r chills. No acute events overnight. Review of Systems: Negative except as above. Medications: List reviewed. Physical Examination: Vital Signs: Temperature 98.4, heart rate 80, blood pressure 169/94, respirations 18, O2 97% on room air. General: Awake, alert, oriented x3, somewhat ill-appearing male. CV: S1 and S2. Regular rate and rhythm. No murmurs. Respiratory: Clear to auscultation bilaterally. No wheezing or stridor. No use of accessory muscle s. Gastrointestinal: Abdomen is soft, nontender, nondistended. Positive bowel sounds. Extremities: No clubbing, cyanosis, or edema. Skin: Right foot incision site clean, dry, intact, bandaged. No drainage. Neurologic: Nonfocal. Laboratory Data: Sodium 141, potassium 3.1, chloride 104, CO2 32, BUN 4, creatinine 0.5, glucose 219 , calcium 8.3, magnesium 1.7. Blood cultures no growth to date. Urine culture growing Staph aureus. Chest x-ray, personally reviewed, shows PICC line within the tip of the superior vena cava. Assessment And Plan: A 28-year-old male with: 1.Diabetic foot wound on the right secondary to Staphylococcus aureus, methicillin sensitive. Faile d outpatient treatment. We will continue with IV antibiotics. PICC line is in place. He will need antibiotics for 2 weeks status post debridement by Dr. Middleton. Postoperative day #2. Improving. Whi te count has normalized. No fevers. 2.Cellulitis, right lower extremity, improving. Erythema has significantly decreased. Cultures andrey w Staphylococcus aureus from the wound. Blood cultures are negative. Previous cultures also grew ou t Proteus. 3.Diabetes mellitus type 1 with hyperglycemia, uncontrolled. We will continue to adjust insulin. W e will be increase premeal insulin. The patient again counseled regarding dietary restrictions. We will monitor Accu-Cheks. Continue sliding scale insulin. 4.Noncompliance, intentional. 5.Failed outpatient treatment. 6.Gastrointestinal and deep venous thrombosis prophylaxis with PPI and Lovenox. Plan: Continue IV antibiotics. Discharge once IV antibiotics are set up at home. SA/MODL Voice ID: [id number] Report ID: [id number]
[2018-07-24] MEDS: HYDRALAZINE HCL 20 MG/ML VIAL IV PRN (18:00)
[2018-07-24] MEDS: ENOXAPARIN 40 MG/0.4 ML SQ SCH (18:01)
[2018-07-24] MEDS: INSULIN GLARGINE 100 UNITS/ML SQ SCH (20:35)
[2018-07-25] MEDS: NA CHLORIDE 0.9% 1,000 ML IV SCH ×3 (01:02→21:19)
[2018-07-25] MEDS: PIPER/TAZO/NS 3.375gm 3.375 GM/100 ML BAG IVPB SCH ×3 (01:02→16:52)
[2018-07-25] MEDS: HYDRALAZINE HCL 20 MG/ML VIAL IV PRN (01:05)
[2018-07-25] MEDS: HYDROMORPHONE HCL 1 MG/ML INJ IV PRN ×4 (03:52→21:24)
[2018-07-25 05:01] LABS: Absolute Lymphocytes (CBC) 2.2 K/uL (0.7-4.9); Absolute Monocytes 0.6 K/uL (0.1-1.3); Absolute Neutrophil 3.8 K/uL (1.8-8.0); Basophils % 0.8 % (0-1.3); Eosinophils % 5.5 % (0-4.4); Hematocrit 31.1 % (39.6-49.0); Lymphocytes % 31.2 % (15.3-44.8); MCH 28.7 pg (27.0-35.0); MPV 6.2 fL (7.6-11.3); Monocytes % 8.1 % (3.3-12.3)
[2018-07-25 05:18] LABS: BUN Blood Urea Nitrogen 4 mg/dL (7-18); Bicarbonate 30 mmol/L (21-32); Glucose Level 154 mg/dL (74-106); Magnesium 1.8 mg/dL (1.8-2.4); Sodium Level 140 mmol/L (136-145)
[2018-07-25] MEDS: KCL 20 MEQ/100 mL IVPB 20 MEQ/100 ML BAG IV SCH ×2 (05:51→08:50)
[2018-07-25] MEDS: INSULIN -REGULAR HUMAN 50 UNIT/0.5 ML ML SQ SCH ×4 (07:30→21:21)
[2018-07-25] MEDS: INSULIN LISPRO 100 UNIT/1 ML SQ SCH ×3 (08:00→16:51)
[2018-07-25] MEDS: MUPIROCIN 2% OINT 22GM TUBE TOP SCH ×2 (08:50→21:22)
[2018-07-25] MEDS: HYDROCODONE/APAP 7.5/325 MG TAB PO PRN ×2 (08:50→14:29)
[2018-07-25] MEDS: LISINOPRIL 20 MG TAB PO SCH (08:50)
[2018-07-25] MEDS: GABAPENTIN 300 MG CAP PO SCH ×2 (08:50→21:21)
[2018-07-25] MEDS ORDERED: MAGNESIUM SULFATE 1 gm IVPB 1 GM/100 ML BAG IV ONE (10:00)
[2018-07-25] MEDS: ONDANSETRON 4 MG/2 ML VIAL IV PRN (10:20)
[2018-07-25] MEDS: VANCOMYCIN 2 GM in NA CHLORIDE 0.9% 500 ML IVPB SCH ×2 (12:09→23:11)
--- NOTE | 2018-07-25 13:55 | PN ---
Date of Progress Note: 07/25/2018 Subjective: The patient is awake, alert. No complaints. Vital signs are stable, afebrile. White c ount is normal. Objective: No significant change. Still little swelling and redness, but not worsened. Assessment: Status post incision and drainage, right foot abscess. Recommendation: Continue IV antibiotics. Wound care as ordered. Discharge planning. /MODL Voice ID: [id number] Report ID: [id number]
[2018-07-25] MEDS: ENOXAPARIN 40 MG/0.4 ML SQ SCH (16:52)
[2018-07-25] MEDS ORDERED: KCL 20 MEQ/100 mL IVPB 20 MEQ/100 ML BAG IV SCH (21:00)
--- NOTE | 2018-07-25 21:02 | PN ---
Date of Progress Note: 07/25/2018 History: The patient is seen and examined. Chart reviewed and case discussed with RN. The patient appears somewhat down and depressed. Pain is present around level 4 in his foot. Treatment plan explained. All questions answered. Review of Systems: Negative except as above. Medications: List reviewed. Physical Examination: Vital Signs: Temperature 98, heart rate 86, blood pressure 177/105, respirations 18, O2 saturation 98% on room air. General: Awake, alert, oriented x3, in some mild distress, ill-appearing male. CV: S1 and S2. No murmurs. Regular rate and rhythm. Peripheral pulses present. Respiratory: Moving air well bilaterally. No wheezing. Gastrointestinal: Abdomen is soft, nontender, nondistended. Positive bowel sounds. Extremities: No clubbing, cyanosis, edema. Neurologic: Nonfocal. Skin: Right foot bandage clean, dry, intact. Psych: Mood is depressed. Affect is flat. Insight and judgment are good. Denies suicidal ideation. Laboratory Data: Sodium 140, potassium 3, chloride 103, CO2 30, BUN 4, creatinine 0.6, glucose 154, calcium 8.1, magnesium 1.8. WBC 7, H and H are 10.9 and 31.1, platelets 434. Wound cultures growing MSSA. Assessment And Plan: A 28-year-old male with; 1. Acute diabetic foot wound on the right, secondary to methicillin-sensitive Staphylococcus aureus, failed outpatient treatment. We will continue IV antibiotics. The patient to be set up with IV antibiotics at home for 2 weeks, status post debridement by Dr. Middleton. Postoperative day #3. No fevers. White count normalized. 2. Cellulitis of the right lower extremity, improving. Still having some swelling of the right foot around the wound and erythema, but significantly improved. Cultures again growing methicillin-sensitive Staphylococcus aureus from the wound. Blood cultures negative. Previous cultures also showed Proteus. Continue antibiotics. 3. Diabetes mellitus type 1 with hyperglycemia, uncontrolled. Hemoglobin A1c is elevated. Insulin dose will be adjusted and we will increase premeal. We will continue dietary restrictions. The patient does sneaking food from outside. Continue sliding scale insulin and Accu-Cheks. 4. Noncompliance, intentional. 5. Failed outpatient treatment. 6. Adjustment disorder with depressed mood. 7. Hypokalemia. We will replace and monitor. Plan: Discharge once IV antibiotics have been arranged for home. JATIN Voice ID: [id number] Report ID: [id number] ADOLPH
[2018-07-25] MEDS: INSULIN GLARGINE 100 UNITS/ML SQ SCH (21:20)
[2018-07-26] MEDS: PIPER/TAZO/NS 3.375gm 3.375 GM/100 ML BAG IVPB SCH ×3 (01:29→17:24)
[2018-07-26] MEDS: HYDROMORPHONE HCL 1 MG/ML INJ IV PRN ×5 (04:41→22:06)
[2018-07-26 04:50] LABS: Absolute Lymphocytes (CBC) 2.3 K/uL (0.7-4.9); Absolute Monocytes 0.6 K/uL (0.1-1.3); Absolute Neutrophil 4.1 K/uL (1.8-8.0); Basophils % 0.6 % (0-1.3); Eosinophils % 4.8 % (0-4.4); Hematocrit 30.4 % (39.6-49.0); Lymphocytes % 30.8 % (15.3-44.8); MCH 28.5 pg (27.0-35.0); MCV 82.6 fL (80-100); Monocytes % 7.6 % (3.3-12.3); RBC Red Blood Cell Count 3.68 M/uL (4.33-5.43)
[2018-07-26 04:56] LABS: BUN Blood Urea Nitrogen 6 mg/dL (7-18); Bicarbonate 32 mmol/L (21-32); Glucose Level 147 mg/dL (74-106); Magnesium 1.9 mg/dL (1.8-2.4); Potassium 3.3 mmol/L (3.5-5.1); Sodium Level 142 mmol/L (136-145)
[2018-07-26] MEDS: KCL 20 MEQ/100 mL IVPB 20 MEQ/100 ML BAG IV SCH ×2 (05:20→08:47)
[2018-07-26] MEDS: INSULIN -REGULAR HUMAN 50 UNIT/0.5 ML ML SQ SCH ×4 (07:30→21:00)
[2018-07-26] MEDS: INSULIN LISPRO 100 UNIT/1 ML SQ SCH ×3 (08:00→17:17)
[2018-07-26] MEDS: LISINOPRIL 20 MG TAB PO SCH (08:48)
[2018-07-26] MEDS: GABAPENTIN 300 MG CAP PO SCH ×2 (08:48→21:05)
[2018-07-26] MEDS: MUPIROCIN 2% OINT 22GM TUBE TOP SCH ×3 (08:49→21:05)
[2018-07-26] MEDS: NA CHLORIDE 0.9% 1,000 ML IV SCH ×2 (08:59→14:39)
[2018-07-26] MEDS: ONDANSETRON 4 MG/2 ML VIAL IV PRN ×2 (10:05→17:20)
[2018-07-26 11:21] VITALS: O2SAT 99
[2018-07-26] MEDS: VANCOMYCIN 2.25 GM in NA CHLORIDE 0.9% 500 ML IVPB SCH ×2 (12:16→23:40)
[2018-07-26] MEDS: HYDRALAZINE HCL 20 MG/ML VIAL IV PRN (12:16)
--- NOTE | 2018-07-26 14:31 | P.PN ---
Subjective Date of Service: 07/26/18 Chief Complaint: Diabetic wound infection Patient seen and examined at bedside. No family at bedside. Case discussed with nursing staff. Patient reports Pain. Also expresses concerns about getting better control over his diabetes this time. Review of Systems As noted above Physical Examination - Vital Signs Temperature: 97.5 F Blood Pressure: 178/110 Pulse: 91 Respirations: 16 Pulse Ox (%): 98 - Physical Exam General: Alert, In no apparent distress HEENT: Atraumatic, PERRLA, EOMI Neck: Supple, JVD not distended Respiratory: Clear to auscultation bilaterally, Normal air movement Cardiovascular: Regular rate/rhythm, Normal S1 S2 Gastrointestinal: Normal bowel sounds, No tenderness Musculoskeletal: No tenderness Integumentary: Other (Right foot bandaged, clean/dry/intact) Neurological: Normal speech, Normal tone, Normal affect Lymphatics: No axilla or inguinal lymphadenopathy - Studies Medications List Reviewed: Yes Assessment And Plan - Plan A 28-year-old male with; 1. Acute diabetic foot wound on the right, secondary to methicillin-sensitive Staphylococcus aureus, failed outpatient treatment. We will continue IV antibiotics. The patient to be set up with IV antibiotics at home for 2 weeks, status post debridement by Dr. Middleton. Postoperative day #4. No fevers. White count normalized. 2. Cellulitis of the right lower extremity, improving. Still having some swelling of the right foot around the wound and erythema, but significantly improved. Cultures again growing methicillin-sensitive Staphylococcus aureus from the wound. Blood cultures negative. Previous cultures also showed Proteus. Continue antibiotics. 3. Diabetes mellitus type 1 with hyperglycemia, uncontrolled. Hemoglobin A1c is elevated. Insulin dose will be adjusted and we will increase premeal. We will continue dietary restrictions. The patient does sneaking food from outside. Continue sliding scale insulin and Accu-Cheks. 4. Noncompliance, intentional. 5. Failed outpatient treatment. 6. Adjustment disorder with depressed mood. 7. Hypokalemia. We will replace and monitor. Plan: Discharge once IV antibiotics have been arranged for home, likely tomorrow
[2018-07-26] MEDS ORDERED: POTASSIUM 25 MEQ EFFERV TAB PO ONE (17:01)
[2018-07-26] MEDS: ENOXAPARIN 40 MG/0.4 ML SQ SCH (17:17)
--- NOTE | 2018-07-26 20:18 | PN ---
Date of Progress Note: 07/26/2018 Subjective: The patient is awake, alert. No complaints. Objective: Vital signs are stable, afebrile. Wound is clean and dry. No purulence. Decreasing ander ma and erythema slowly. Assessment: Status post incision and drainage, right foot abscess. Recommendation: We will treat him with 2 weeks of IV vancomycin and Zosyn per protocol. Wound care is ordered. [facility] will [facility] and decide if he needs any further anti biotic therapy. /MODL Voice ID: [id number] Report ID: [id number]
[2018-07-26] MEDS: INSULIN GLARGINE 100 UNITS/ML SQ SCH (21:05)
[2018-07-26] MEDS ORDERED: POTASSIUM CL SA 10 MEQ TAB PO ONE (23:04)
[2018-07-27] MEDS: HYDROMORPHONE HCL 1 MG/ML INJ IV PRN ×6 (01:49→22:35)
[2018-07-27] MEDS: PIPER/TAZO/NS 3.375gm 3.375 GM/100 ML BAG IVPB SCH ×2 (01:50→09:00)
[2018-07-27] MEDS: NA CHLORIDE 0.9% 1,000 ML IV SCH ×4 (05:18→22:42)
[2018-07-27 05:56] LABS: BUN Blood Urea Nitrogen 6 mg/dL (7-18); Bicarbonate 33 mmol/L (21-32); Glucose Level 255 mg/dL (74-106); Potassium 3.7 mmol/L (3.5-5.1); Sodium Level 141 mmol/L (136-145)
[2018-07-27] MEDS ORDERED: POTASSIUM CL SA 10 MEQ TAB PO ONE (06:04)
[2018-07-27] MEDS: INSULIN -REGULAR HUMAN 50 UNIT/0.5 ML ML SQ SCH ×5 (07:30→22:31)
[2018-07-27] MEDS: INSULIN LISPRO 100 UNIT/1 ML SQ SCH ×4 (08:00→16:53)
[2018-07-27] MEDS: MUPIROCIN 2% OINT 22GM TUBE TOP SCH ×2 (09:00→22:34)
[2018-07-27] MEDS: GABAPENTIN 300 MG CAP PO SCH ×2 (09:03→22:31)
[2018-07-27] MEDS: LISINOPRIL 20 MG TAB PO SCH (09:04)
[2018-07-27] MEDS: VANCOMYCIN 2.25 GM in NA CHLORIDE 0.9% 500 ML IVPB SCH (12:27)
[2018-07-27] MEDS: ONDANSETRON 4 MG/2 ML VIAL IV PRN (13:43)
[2018-07-27] MEDS: ENOXAPARIN 40 MG/0.4 ML SQ SCH (16:54)
--- NOTE | 2018-07-27 18:20 | P.PN ---
Subjective Date of Service: 07/27/18 Chief Complaint: Diabetic wound infection Patient seen and examined at bedside. No family at bedside. Case discussed with nursing staff. Patient reports Pain. Also expresses concerns about getting better control over his diabetes this time. Review of Systems As noted Physical Examination - Vital Signs Temperature: 97.5 F Blood Pressure: 168/88 Pulse: 99 Respirations: 17 Pulse Ox (%): 96 - Physical Exam General: Alert, In no apparent distress HEENT: Atraumatic, PERRLA, EOMI Neck: Supple, JVD not distended Respiratory: Clear to auscultation bilaterally, Normal air movement Cardiovascular: Regular rate/rhythm, Normal S1 S2 Gastrointestinal: Normal bowel sounds, No tenderness Musculoskeletal: No tenderness Integumentary: No rashes Neurological: Normal speech, Normal tone, Normal affect Lymphatics: No axilla or inguinal lymphadenopathy - Studies Microbiology Data (last 24 hrs): 07/21/18 23:55 Blood - Blood Aerobic Blood Culture - Final No growth in 5 days. 07/21/18 23:55 Blood - Blood Anaerobic Blood Culture - Final No growth in 5 days. 07/21/18 23:40 Blood - Blood Aerobic Blood Culture - Final No growth in 5 days. 07/21/18 23:40 Blood - Blood Anaerobic Blood Culture - Final No growth in 5 days. Medications List Reviewed: Yes Assessment And Plan - Plan A 28-year-old male with; 1. Acute diabetic foot wound on the right, secondary to methicillin-sensitive Staphylococcus aureus, failed outpatient treatment. We will continue IV antibiotics. The patient to be set up with IV antibiotics at home for 2 weeks, status post debridement by Dr. Middleton. Postoperative day #5. No fevers. White count normalized. 2. Cellulitis of the right lower extremity, improving. Still having some swelling of the right foot around the wound and erythema, but significantly improved. Cultures again growing methicillin-sensitive Staphylococcus aureus from the wound. Blood cultures negative. Previous cultures also showed Proteus. Continue antibiotics. 3. Diabetes mellitus type 1 with hyperglycemia, uncontrolled. Hemoglobin A1c is elevated. Insulin dose will be adjusted and we will increase premeal. We will continue dietary restrictions. The patient does sneaking food from outside. Continue sliding scale insulin and Accu-Cheks. 4. Noncompliance, intentional. 5. Failed outpatient treatment. 6. Adjustment disorder with depressed mood. 7. Hypokalemia. We will replace and monitor. Plan: Discharge with IV vancomycin and oral Augmentin, once IV antibiotics have been set up for home. likely tomorrow
[2018-07-27] MEDS: INSULIN GLARGINE 100 UNITS/ML SQ SCH (22:32)
[2018-07-27] MEDS: AMOX/K CLAV 875 MG TAB PO SCH (22:34)
[2018-07-27] MEDS: VANCOMYCIN 2 GM in NA CHLORIDE 0.9% 500 ML IVPB SCH (22:37)
[2018-07-28 06:00] LABS: Potassium 3.4 mmol/L (3.5-5.1)
[2018-07-28] MEDS ORDERED: POTASSIUM CL SA 10 MEQ TAB PO ONE (06:04)
[2018-07-28] MEDS: HYDROMORPHONE HCL 1 MG/ML INJ IV PRN (06:57)
[2018-07-28] MEDS: INSULIN -REGULAR HUMAN 50 UNIT/0.5 ML ML SQ SCH (07:30)
[2018-07-28] MEDS: LISINOPRIL 20 MG TAB PO SCH (08:45)
[2018-07-28] MEDS: AMOX/K CLAV 875 MG TAB PO SCH (08:45)
[2018-07-28] MEDS: GABAPENTIN 300 MG CAP PO SCH (08:46)
[2018-07-28] MEDS: INSULIN LISPRO 100 UNIT/1 ML SQ SCH (08:47)
[2018-07-28] MEDS: MUPIROCIN 2% OINT 22GM TUBE TOP SCH (08:49)
[2018-07-28] MEDS: ONDANSETRON 4 MG/2 ML VIAL IV PRN (08:52)
[2018-07-28 09:35] VITALS: TEMP 97.8
[2018-07-28 10:02] VITALS: BP 155/88
[2018-07-28] MEDS: VANCOMYCIN 2 GM in NA CHLORIDE 0.9% 500 ML IVPB SCH (10:49)
--- NOTE | 2018-07-28 15:46 | P.DS ---
Admission Date: 07/22/18 Discharge Date: 07/28/18 Primary Care Provider: Dr. Arguelles Disposition: DC HOME/HOME HEALTH CARE Discharge Condition: GOOD Reason for Admission: Diabetic wound infection Consultations: General Surgery, Dr. Middleton Procedures: Incision, drainage and debridement, right foot abscess, 07/22/2018 PICC line placement Brief History of Present Illness: Mr Smiley is a 28-year-old male with history of diabetes mellitus, hypertension, who was admitted to the hospital a few days ago due to right foot cellulitis secondary to a diabetic wound. He was treated with IV antibiotics and then switch to p.o. after receive wound culture report (Staph Aureus and Proteus mirabilis). MRI of the right foot showed no sign of osteomyelitis. After he was discharged home 2 days ago, he was noticed increase in swelling, pain, blistering 1st and 2nd toe webspace. He denied any fever or chills. Lab work remarkable for leukocytosis 11.7 K, lactate and procalcitonin within normal limits. Hospital Course: Patient was admitted to the hospital for cellulitis secondary diabetic wound infection. He was started on IV vancomycin and Zosyn for Staph aureus and Proteus mirabilis which she had grown on previous cultures. Doctors in [facility], general surgery was consulted and patient underwent a debridement on 2017. He was continued on IV antibiotics. PICC line was placed for long-term IV antibiotics at home. Patient tolerated procedure well. He was discharged home on 2 weeks of IV vancomycin and oral Augmentin. He is to follow up with Dr. Shepherd-2 weeks to see if he needs IV antibiotics any longer than that. Vancomycin labs/adjustments will be followed by PCP, PCP aware. For his uncontrolled diabetes type 1, we increased his insulin dosage, continue dietary restrictions. He was provided extensive education regarding diabetes control. He was taking in food from outside and his blood sugars were elevated throughout the hospitalization. Per patient, he has an endocrinology appointment scheduled in the next few weeks. Encouraged patient to keep appointment as he may be getting an insulin pump, which will be very beneficial for him. Otherwise he remained stable throughout the hospitalization. He was discharged with instructions to follow up with his endocrinology appointment. He was also instructed to follow up with his primary care physician in the next 1 week. He is to follow up with Dr. Shepherd-2 weeks. It is patient verbalizes understanding of all instructions given. He was discharged in a stable condition on IV antibiotics via PICC line. Home health was set up. Vital Signs/Physical Exam: Temp Pulse Resp BP Pulse Ox 97.8 F 91 H 16 155/88 H 98 07/28/18 08:00 07/28/18 08:45 07/28/18 08:00 07/28/18 10:02 07/28/18 08:00 General: Alert, In no apparent distress, Oriented x3 HEENT: Atraumatic, PERRLA, EOMI Neck: Supple, JVD not distended Respiratory: Clear to auscultation bilaterally, Normal air movement Cardiovascular: Regular rate/rhythm, Normal S1 S2 Gastrointestinal: Normal bowel sounds, No tenderness Musculoskeletal: No tenderness Integumentary: Skin breakdown, Skin lesion, Diabetic ulcer Neurological: Normal speech, Normal tone, Normal affect Lymphatics: No axilla or inguinal lymphadenopathy Laboratory Data at Discharge: WBC 7.3 K/uL (4.3-10.9) 07/26/18 04:28 Hgb 10.5 g/dL (13.6-17.9) L 07/26/18 04:28 Hct 30.4 % (39.6-49.0) L 07/26/18 04:28 Plt Count 412 K/uL (152-406) H 07/26/18 04:28 PT 14.0 SECONDS (9.5-12.5) H 07/21/18 23:40 INR 1.18 07/21/18 23:40 Sodium 145 mmol/L (136-145) 07/28/18 05:00 Potassium 3.4 mmol/L (3.5-5.1) L 07/28/18 05:00 BUN 9 mg/dL (7-18) 07/28/18 05:00 Creatinine 1.10 mg/dL (0.55-1.3) 07/28/18 05:00 Glucose 200 mg/dL (74-106) H 07/28/18 05:00 Magnesium 1.9 mg/dL (1.8-2.4) 07/26/18 04:28 Total Bilirubin 0.3 mg/dL (0.2-1.0) 07/21/18 23:40 AST 9 U/L (15-37) L 07/21/18 23:40 ALT 14 U/L (12-78) 07/21/18 23:40 Alkaline Phosphatase 111 U/L (45-117) 07/21/18 23:40 Home Medications: Lisinopril [Prinivil*] 20 mg PO DAILY 07/12/17 Hydrocodone 10/APAP 325 [[place] 325*] 1 tab PO Q4HP PRN #20 tab 07/16/17 Gabapentin [Gralise] 3 tab PO BID 07/15/18 Insulin Aspart Protam & Aspart [Novolog Mix 70-30 Flexpen Syrn] 13 units SQ BID 07/15/18 Amox/Clavulanate [Augmentin 875-125 Tab*] 875 mg PO BID #28 tab 07/28/18 Mupirocin Oint [Bactroban 2% Ointment*] 1 appl TOP BID #1 tube 07/28/18 Tramadol HCl [Ultram] 50 mg PO Q6H PRN #15 tablet 07/28/18 New Medications: Amox/Clavulanate [Augmentin 875-125 Tab*] 875 mg PO BID #28 tab Mupirocin Oint [Bactroban 2% Ointment*] 1 appl TOP BID #1 tube Tramadol HCl [Ultram] 50 mg PO Q6H PRN #15 tablet PRN Reason: Pain Patient Discharge Instructions: w to d ns with collagenase daily Diet: ADA Activity: Ad madelaine Followup: Lucio Middleton MD [ACTIVE - CAN ADMIT] - 1-2 Weeks ([facility] in my clinic) Time spent managing pt's care (in minutes): 45
== END 2018-07-28 11:24 | disposition home health service (06) | DRG 623 ==
LOC: ER 21:24 → ERHOLD 07-22 02:44 → 2ND 07-22 05:09
PROVIDERS: ADMIT Internal Medicine; ATTEND Family Medicine
PROC: 0J9Q0ZZ Drainage of Right Foot Subcutaneous Tissue and Fascia, Open Approach (ICD-10-PCS; 2018-07-22)
PROC: 0JBQ0ZZ Excision of Right Foot Subcutaneous Tissue and Fascia, Open Approach (ICD-10-PCS; principal; 2018-07-22 09:45)
PROC: 02HV33Z Insertion of Infusion Device into Superior Vena Cava, Percutaneous Approach (ICD-10-PCS; 2018-07-23)
PROC: B548ZZA Ultrasonography of Superior Vena Cava, Guidance (ICD-10-PCS; 2018-07-23)
DX: E10.628 Type 1 diabetes mellitus with other skin complications (principal); L03.115 Cellulitis of right lower limb; L02.611 Cutaneous abscess of right foot; B95.61 Methicillin susceptible Staphylococcus aureus infection as the cause of diseases classified elsewhere; B96.4 Proteus (mirabilis) (morganii) as the cause of diseases classified elsewhere; Z79.4 Long term (current) use of insulin; I10 Essential (primary) hypertension; E10.65 Type 1 diabetes mellitus with hyperglycemia; L97.512 Non-pressure chronic ulcer of other part of right foot with fat layer exposed; Z91.11 Patient's noncompliance with dietary regimen; F43.21 Adjustment disorder with depressed mood; E87.6 Hypokalemia
CPT/HCPCS: 36415; 71045; 80048; 80076; 80202; 81003; 81015; 82962; 83036; 83605; 83735; 84132; 84145; 85025; 85610; 87040; 87070; 87075; 87077; 87186; 87205; 96365; 96366; 96375; 99285; J0360; J1170; J1650; J2250; J2270; J2405; J2543; J2704; J3010; J3370; J3475; J3590; J7030

== ENCOUNTER 2019-03-29 18:56 | Emergency (ER) | payer BC ==
[2019-03-29] MEDS ORDERED: LIDOCAINE 1% MPF 5 ML VIAL ONE (20:26)
--- NOTE | 2019-03-29 20:40 | EDPHYS ---
Physician Documentation [facility] Name: Parminder Smiley Age: 28 yrs Sex: Male : 1990 Arrival Date: 03/29/2019 Time: 19:00 Bed 11 Private MD: Kristy Arguelles H ED Physician Caleb Marrero HPI: 03/29 20:30 This 28 yrs old Male presents to ER via Ambulatory with complaints of jr8 Laceration To Hand. 20:30 The patient has a laceration related to: working, with bathroom tile, occurred at home, jr8 and there are no complicating factors. The injury was accidental. The laceration(s) is(are) located on the right hand. Onset: The symptoms/episode began/occurred 2 hour(s) ago. Associated signs and symptoms: The patient has no apparent associated signs or symptoms, Pertinent negatives: suspected foreign body. The patient has not experienced similar symptoms in the past. The patient has not recently seen a physician. reports scraping hand on bathroom tile while removing tile. Laceration over right 5th MCP. Historical: - Allergies: 19:11 No Known Allergies; bp - Home Meds: 19:11 Humulin R 100 unit/mL soln [Active]; lisinopril 20 mg Oral tab 1 tab BID [Active]; bp Novolog Sub-Q [Active]; Gralise Oral [Active]; - PMHx: 19:11 Cellulitis; Diabetes - IDDM; Hypertension; bp - Immunization history:: Last tetanus immunization: unknown. - Social history:: Smoking status: Patient/guardian denies using tobacco. - Ebola Screening: : No symptoms or risks identified at this time. ROS: 20:30 Constitutional: Negative for fever, chills, and weight loss, Eyes: Negative for injury, jr8 pain, redness, and discharge, ENT: Negative for injury, pain, and discharge, Neck: Negative for injury, pain, and swelling, Cardiovascular: Negative for chest pain, palpitations, and edema, Respiratory: Negative for shortness of breath, cough, wheezing, and pleuritic chest pain, Abdomen/GI: Negative for abdominal pain, nausea, vomiting, diarrhea, and constipation, Back: Negative for injury and pain, Neuro: Negative for headache, weakness, numbness, tingling, and seizure. 20:30 MS/extremity: Positive for laceration, Negative for abrasion, decreased range of motion, paresthesias, rash, swelling, tenderness. Exam: 20:30 Constitutional: This is a well developed, well nourished patient who is awake, alert, jr8 and in no acute distress. Head/Face: Normocephalic, atraumatic. Neck: Trachea midline, no thyromegaly or masses palpated, and no cervical lymphadenopathy. Supple, full range of motion without nuchal rigidity, or vertebral point tenderness. No Meningismus. Chest/axilla: Normal chest wall appearance and motion. Nontender with no deformity. No lesions are appreciated. Cardiovascular: Regular rate and rhythm with a normal S1 and S2. No gallops, murmurs, or rubs. Normal PMI, no JVD. No pulse deficits. Respiratory: Lungs have equal breath sounds bilaterally, clear to auscultation and percussion. No rales, rhonchi or wheezes noted. No increased work of breathing, no retractions or nasal flaring. Abdomen/GI: Soft, non-tender, with normal bowel sounds. No distension or tympany. No guarding or rebound. No evidence of tenderness throughout. Neuro: Awake and alert, GCS 15, oriented to person, place, time, and situation. Cranial nerves II-XII grossly intact. Motor strength 5/5 in all extremities. Sensory grossly intact. Cerebellar exam normal. Normal gait. 20:30 Musculoskeletal/extremity: ROM: intact in all extremities, full active range of motion, Circulation is intact in all extremities. Sensation intact. 20:30 Skin: Appearance: normal except for affected area, injury, laceration(s), the wound is approximately 1.5 cm(s), of the right hand over 5th MCP, that can be described as clean, no foreign body, linear, without bleeding. Vital Signs: 19:11 BP 167 / 92; Pulse 104; Resp 18; Temp 98.1; Pulse Ox 100% ; Weight 94.35 kg; Height 6 bp ft. 2 in. (187.96 cm); 19:11 Body Mass Index 26.71 (94.35 kg, 187.96 cm) bp Laceration: 20:30 Wound Repair of 1.5cm ( 0.6in ) subcutaneous laceration to right hand. Distal jr8 neuro/vascular/tendon intact. Anesthesia: Local anesthetic administered with 1.5 mls of 1% lidocaine. Wound prep: Simple cleansing with betadine by me, Copious irrigation. Skin closed with 5 4-0 Prolene using simple sutures and sterile technique. Dressed with Bacitracin, 4x4's. Patient tolerated well. MDM: 19:59 Patient medically screened. jr8 20:30 Differential diagnosis: superficial laceration, tendon injury, vascular injury. Data jr8 reviewed: vital signs, nurses notes, and as a result, I will discharge patient. Data interpreted: Pulse oximetry: on room air is 100 %. Interpretation: normal. Counseling: I had a detailed discussion with the patient and/or guardian regarding: the historical points, exam findings, and any diagnostic results supporting the discharge/admit diagnosis, the need for outpatient follow up, a family practitioner, to return to the emergency department if symptoms worsen or persist or if there are any questions or concerns that arise at home. 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 Exp: fc 12/11/2020. Lot #: [id number]. } Route: IM; Site: right deltoid; Disposition: 03/30 02:53 Co-signature as Attending Physician, Caleb Marrero MD. rn Disposition: 03/29/19 20:40 Discharged to Home. Impression: Laceration without foreign body of right hand. - Condition is Stable. - Discharge Instructions: Laceration Care, Adult. - Medication Reconciliation Form, Thank You Letter, Antibiotic Education, Prescription Opioid Use form. - Follow up: Kristy Arguelles DO; When: 7 - 10 days; Reason: Wound Recheck, Recheck today's complaints, Continuance of care, Staple/Suture removal, Re-evaluation by your physician. - Problem is new. - Symptoms have improved. Signatures: Irene Hendrix RN RN Caleb Marrero MD MD rn Roszak, Josh, PA PA jr8 Mely Bennett RN RN ak1 Geoffrey Nation RN RN bp Corrections: (The following items were deleted from the chart) 03/29 21:14 20:40 03/29/2019 20:40 Discharged to Home. Impression: Laceration without foreign body ak1 of right hand. Condition is Stable. Forms are Medication Reconciliation Form, Thank You Letter, Antibiotic Education, Prescription Opioid Use. Follow up: Kristy Arguelles; When: 7 - 10 days; Reason: Wound Recheck, Recheck today's complaints, Continuance of care, Staple/Suture removal, Re-evaluation by your physician. Problem is new. Symptoms have improved. jr8
--- NOTE | 2019-03-29 20:40 | ER ---
Nurse's Notes [facility] Name: Parminder Smiley Age: 28 yrs Sex: Male : 1990 Arrival Date: 03/29/2019 Time: 19:00 Bed 11 Private MD: Kristy Arguelles H Diagnosis: Laceration without foreign body of right hand Presentation: 03/29 19:09 Presenting complaint: Patient states: R HAND DORSUM LAC ON TILE. Transition of care: bp patient was not received from another setting of care. Complicating Factors: TILE. Onset of symptoms was March 29, 2019 at 18:30. Risk Assessment: Do you want to hurt yourself or someone else? Patient reports no desire to harm self or others. Initial Sepsis Screen: Does the patient meet any 2 criteria? No. Patient's initial sepsis screen is negative. Does the patient have a suspected source of infection? No. Patient's initial sepsis screen is negative. Care prior to arrival: None. 19:09 Method Of Arrival: Ambulatory bp 19:09 Acuity: REYMUNDO 3 bp Triage Assessment: 20:12 General: Appears in no apparent distress. comfortable, Behavior is calm, cooperative. ak1 Pain: Complains of pain in right hand. EENT: No signs and/or symptoms were reported regarding the EENT system. Neuro: No deficits noted. Cardiovascular: No deficits noted. Respiratory: No deficits noted. GI: No signs and/or symptoms were reported involving the gastrointestinal system. : No signs and/or symptoms were reported regarding the genitourinary system. Derm: lac to right hand. Musculoskeletal: No signs and/or symptoms reported regarding the musculoskeletal system. Injury Description: Laceration sustained to right hand is bleeding a small amount. Historical: - Allergies: 19:11 No Known Allergies; bp - Home Meds: 19:11 Humulin R 100 unit/mL soln [Active]; lisinopril 20 mg Oral tab 1 tab BID [Active]; bp Novolog Sub-Q [Active]; Gralise Oral [Active]; - PMHx: 19:11 Cellulitis; Diabetes - IDDM; Hypertension; bp - Immunization history:: Last tetanus immunization: unknown. - Social history:: Smoking status: Patient/guardian denies using tobacco. - Ebola Screening: : No symptoms or risks identified at this time. Screenin:11 Abuse screen: Denies threats or abuse. Denies injuries from another. Nutritional ak1 screening: No deficits noted. Tuberculosis screening: No symptoms or risk factors identified. Fall Risk None identified. Assessment: 20:11 Musculoskeletal: lac to hand. ak1 20:12 Injury Description: Laceration is superficial, 0.5 to 2.5 cm long, bleeding controlled. ak1 Vital Signs: 19:11 BP 167 / 92; Pulse 104; Resp 18; Temp 98.1; Pulse Ox 100% ; Weight 94.35 kg; Height 6 bp ft. 2 in. (187.96 cm); 19:11 Body Mass Index 26.71 (94.35 kg, 187.96 cm) bp ED Course: 19:00 Patient arrived in ED. mr 19:00 Kristy Arguelles DO is Private Physician. mr 19:11 Triage completed. bp 19:11 Arm band placed on. bp 19:58 Enrique Rivera PA is PHCP. jr8 19:58 Caleb Marrero MD is Attending Physician. jr8 20:11 Mely Bennett, ALLYSSA is Primary Nurse. ak1 20:11 Patient has correct armband on for positive identification. ak1 20:39 Kristy Arguelles DO is Referral Physician. jr8 20:50 Assist provider with laceration repair on dorsum of left hand that was between 2.6 to fc 7.5 cm using sutures. Set up tray. Performed by Enrique MATHEW Dressed with band aid, Neosporin, Patient tolerated well. 21:13 Patient did not have IV access during this emergency room visit. 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 Exp: fc 12/11/2020. Lot #: [id number]. } Route: IM; Site: right deltoid; Outcome: 20:40 Discharge ordered by . jr8 21:14 Discharged to home ambulatory, with family. ak1 21:14 Condition: good 21:14 Discharge instructions given to patient, family, Instructed on discharge instructions, follow up and referral plans. wound care, Demonstrated understanding of instructions, follow-up care, wound care. 21:14 Patient left the ED. ak1 Signatures: Js Jo mr Irene Hendrix, RN RN Enrique Gale PA PA jr8 Mely Bennett RN RN ak1 Geoffrey Nation RN RN bp
[2019-03-29] MEDS ORDERED: TETANUS & DIPHTHERIA TOX,ADULT 0.5 ML VIAL ONE (21:18)
[2019-03-29 21:56] VITALS: BP 167/92; TEMP 98.1; O2SAT 100
== END 2019-03-29 21:14 | disposition home or self-care (01) ==
LOC: ER 18:56
PROC: 0JQJ0ZZ Repair Right Hand Subcutaneous Tissue and Fascia, Open Approach (ICD-10-PCS; principal; 2019-03-29)
DX: S61.411A Laceration without foreign body of right hand, initial encounter (principal); W45.8XXA Other foreign body or object entering through skin, initial encounter; Y93.89 Activity, other specified; Y92.002 Bathroom of unspecified non-institutional (private) residence as the place of occurrence of the external cause; Z23 Encounter for immunization; Z79.4 Long term (current) use of insulin; I10 Essential (primary) hypertension; E11.9 Type 2 diabetes mellitus without complications
CPT/HCPCS: 90471; 90714; 99283

== ENCOUNTER 2019-04-04 16:32 | Emergency (ER) | payer BC ==
--- NOTE | 2019-04-04 17:43 | RAD REPORT ---
EXAM DESCRIPTION: RAD - Foot Right 3 View - 04/04/2019 5:27 pm CLINICAL HISTORY: Right foot pain, diabetes, soft tissue wounds, bleeding from the first toe COMPARISON: June 2018 FINDINGS: No fracture, dislocation or periosteal reaction. No acute or destructive bone process. Sof t tissue wound is seen along the medial soft tissues at the first distal phalanx. No air or foreign b laura in the soft tissues. IMPRESSION: No acute bone or joint finding. Soft tissue injury the first toe. No air or foreign body in the soft tissues of the foot.
[2019-04-04] MEDS ORDERED: TETANUS & DIPHTHERIA TOX,ADULT 0.5 ML VIAL ONE (17:59)
--- NOTE | 2019-04-04 19:00 | ER ---
Nurse's Notes [facility] Name: Parminder Smiley Age: 28 yrs Sex: Male : 1990 Arrival Date: 04/04/2019 Time: 16:34 Bed 18 Private MD: Kristy Arguelles H Diagnosis: Blister (nonthermal), right great toe;Abrasion, right great toe-skin tear Presentation: 04/04 16:43 Presenting complaint: Patient states: "I have diabetic sores on my feet and today when aa5 I took off my shoe my toe started bleeding and I think what happened was that left my toe bent all day with my shoes on because I have neuropathy". Transition of care: patient was not received from another setting of care. Complicating Factors: There are no complicating factors for this patient. Onset of symptoms was April 04, 2019. Risk Assessment: Do you want to hurt yourself or someone else? Patient reports no desire to harm self or others. Care prior to arrival: None. 16:43 Method Of Arrival: Ambulatory aa5 16:43 Acuity: REYMUNDO 3 aa5 17:00 Initial Sepsis Screen: Does the patient meet any 2 criteria? No. Patient's initial bp sepsis screen is negative. Does the patient have a suspected source of infection? No. Patient's initial sepsis screen is negative. Triage Assessment: 16:49 General: Appears in no apparent distress. comfortable, Behavior is calm, cooperative, bp appropriate for age. Pain: Denies pain. EENT: No deficits noted. Neuro: No deficits noted. Cardiovascular: No deficits noted. Respiratory: No deficits noted. GI: No signs and/or symptoms were reported involving the gastrointestinal system. : No signs and/or symptoms were reported regarding the genitourinary system. Derm: No deficits noted. Musculoskeletal: No deficits noted. Injury Description: Laceration sustained to right first toe. Historical: - Allergies: 16:46 No Known Allergies; aa5 - PMHx: 16:46 Cellulitis; Diabetes - IDDM; Hypertension; aa5 - Immunization history:: Adult Immunizations unknown. - Social history:: Smoking status: Patient/guardian denies using tobacco. - Ebola Screening: : No symptoms or risks identified at this time. Screenin:52 Abuse screen: Denies threats or abuse. Denies injuries from another. Nutritional bp screening: No deficits noted. Tuberculosis screening: No symptoms or risk factors identified. Fall Risk None identified. Assessment: 16:52 General: SEE TRIAGE NOTE. bp 17:00 Injury Description: Laceration is contaminated, not bleeding. bp 18:25 Reassessment: WOUND REPAIR PENDING. bp 19:09 Reassessment: PT D/C HOME VIA W/C, DX WITH R GREAT TOE ABRASION. bp Vital Signs: 16:46 BP 168 / 108; Pulse 106; Resp 18 S; Temp 98.2; Pulse Ox 100% on R/A; Weight 95.25 kg aa5 (R); Height 6 ft. 2 in. (187.96 cm) (R); Pain 0/10; 18:24 BP 135 / 106; Pulse 89; Resp 16; Pulse Ox 99% ; bp 16:46 Body Mass Index 26.96 (95.25 kg, 187.96 cm) aa5 ED Course: 16:34 Patient arrived in ED. rg4 16:35 Kristy Arguelles DO is Private Physician. rg4 16:43 Arm band placed on. aa5 16:45 Triage completed. aa5 16:47 Geoffrey Nation, ALLYSSA is Primary Nurse. bp 16:50 Michele iWlson NP is PHCP. pm1 16:50 Toño Syed MD is Attending Physician. pm1 16:52 Patient has correct armband on for positive identification. Bed in low position. Call bp light in reach. Side rails up X2. 17:29 Foot Right 3 View XRAY In Process Unspecified. EDMS 17:30 Wound care: soaked right great toe with chlorhexidine and normal saline. dh3 18:57 Lucio Middleton MD is Referral Physician. pm1 19:05 Dressings: non-adherent dressing x 1 right foot and right first toe Tube gauze X 1; dh3 right foot and right first toe and triple antibiotic ointment. 19:10 No provider procedures requiring assistance completed. Patient did not have IV access bp during this emergency room visit. Administered Medications: 18:11 Not Given (PT UP TO DATE ON VAXX): Tetanus-Diphtheria Toxoid Adult 0.5 ml IM once bp Outcome: 18:58 Discharge ordered by . pm1 19:10 Discharged to home via wheelchair, with family. bp 19:10 Condition: stable 19:10 Discharge instructions given to patient, Instructed on discharge instructions, follow up and referral plans. wound care, Demonstrated understanding of instructions, follow-up care, wound care. 19:12 Patient left the ED. bp Signatures: Dispatcher [employer] EDTierney Kim RN RN aa5 Michele Wilson, ABY ENGLISH LECTURER pm1 [place] 4 Kristina Muhammad 3 Geoffrey Nation RN RN bp Corrections: (The following items were deleted from the chart) 16:47 16:43 Initial Sepsis Screen: Does the patient meet any 2 criteria? No. Patient's aa5 initial sepsis screen is negative. Does the patient have a suspected source of infection? No. Patient's initial sepsis screen is negative. aa5 19:05 18:00 Wound care: soaked right great toe with chlorhexidine and normal saline dh3 dh3
--- NOTE | 2019-04-04 19:00 | EDPHYS ---
Physician Documentation [facility] Name: Parminder Smiley Age: 28 yrs Sex: Male : 1990 Arrival Date: 04/04/2019 Time: 16:34 Bed 18 Private MD: Kristy Arguelles H ED Physician Toño Syed HPI: 04/04 16:55 This 28 yrs old Male presents to ER via Ambulatory with complaints of Right pm1 great toe injury. 16:55 The patient has a laceration occurred at home. The laceration(s) is(are) located on the pm1 right first toe. Onset: The symptoms/episode began/occurred today. The patient has been recently seen by a physician: for apparently unrelated complaints, Dr. Middleton for chronic foot wounds. Has appointment tomorrow and is currently taking cipro and doxycycline . Patient presenting with abrasion and blisters to right great toe. Patient with diabetes and peripheral neuropathy and foot drop to right foot. Does not feel his feet so he believes that when he put his shoe on this AM for work he must have injured his toe at that time. Noticed injury only when he took of his shoes and socks after getting home from work. Historical: - Allergies: 16:46 No Known Allergies; aa5 - PMHx: 16:46 Cellulitis; Diabetes - IDDM; Hypertension; aa5 - Immunization history:: Adult Immunizations unknown. - Social history:: Smoking status: Patient/guardian denies using tobacco. - Ebola Screening: : No symptoms or risks identified at this time. ROS: 16:55 Constitutional: Negative for fever, chills, and weight loss, Cardiovascular: Negative pm1 for chest pain, palpitations, and edema, Respiratory: Negative for shortness of breath, cough, wheezing, and pleuritic chest pain, MS/Extremity: Negative for injury and deformity. 16:55 Skin: Positive for abrasion(s), blister, Negative for laceration(s), swelling. 16:55 Neuro: Positive for peripheral neuropathy to lower extermities. Exam: 16:55 Constitutional: This is a well developed, well nourished patient who is awake, alert, pm1 and in no acute distress. Head/Face: Normocephalic, atraumatic. 16:55 MS/ Extremity: Pulses equal, no cyanosis. Right foot drop 16:55 Skin: Appearance: normal except for affected area, abrasion to distal tip of right great toe with skin barely hanging on just below nail. Medial intact blister present. No injury to dried chronic ulcer at ball of right foot. Vital Signs: 16:46 BP 168 / 108; Pulse 106; Resp 18 S; Temp 98.2; Pulse Ox 100% on R/A; Weight 95.25 kg aa5 (R); Height 6 ft. 2 in. (187.96 cm) (R); Pain 0/10; 18:24 BP 135 / 106; Pulse 89; Resp 16; Pulse Ox 99% ; bp 16:46 Body Mass Index 26.96 (95.25 kg, 187.96 cm) aa5 MDM: 16:51 Patient medically screened. pm1 18:56 Data reviewed: vital signs. Data interpreted: Pulse oximetry: on room air is 99 %. pm1 Interpretation: normal. Counseling: I had a detailed discussion with the patient and/or guardian regarding: the historical points, exam findings, and any diagnostic results supporting the discharge/admit diagnosis, radiology results, the need for outpatient follow up, a general surgeon, has appointment with Dr. Kane hudsonorrfreda for wound care evaluation. 19:01 ED course: Patient currently taking cipro and doxycycline already. Patient with pm1 appointment with Dr. Kane segura for wound care management. 04/04 16:55 Order name: Foot Right 3 View XRAY; Complete Time: 17:44 pm1 04/04 16:55 Order name: Wound Care; Complete Time: 17:23 pm1 Administered Medications: 18:11 Not Given (PT UP TO DATE ON [facility]): Tetanus-Diphtheria Toxoid Adult 0.5 ml IM once bp Disposition: 04/05 07:09 Co-signature as Attending Physician, Toño Syed MD I agree with the assessment and kdr plan of care. Disposition: 04/04/19 18:58 Discharged to Home. Impression: Abrasion, right great toe - skin tear, Blister (nonthermal), right great toe. - Condition is Stable. - Discharge Instructions: Abrasion, Blisters, Adult. - Medication Reconciliation Form, Thank You Letter, Antibiotic Education, Prescription Opioid Use form. - Follow up: Emergency Department; When: As needed; Reason: Worsening of condition. Follow up: Lucio Middleton MD; When: Tomorrow; Reason: Recheck today's complaints, Continuance of care, Re-evaluation by your physician. - Problem is new. - Symptoms have improved. 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 Impression: Abrasion, right great toe - skin bp tearBlister (nonthermal), right great toe. Condition is Stable. Forms are Medication Reconciliation Form, Thank You Letter, Antibiotic Education, Prescription Opioid Use. Follow up: Emergency Department; When: As needed; Reason: Worsening of condition. Follow up: Dr. Lucio Middleton; When: Tomorrow; Reason: Recheck today's complaints, Continuance of care, Re-evaluation by your physician. Problem is new. Symptoms have improved. pm1
[2019-04-04 19:45] VITALS: TEMP 98.2
[2019-04-04 19:47] VITALS: BP 135/106; O2SAT 99
== END 2019-04-04 19:12 | disposition home or self-care (01) ==
LOC: ER 16:32
DX: S90.421A Blister (nonthermal), right great toe, initial encounter (principal); X58.XXXA Exposure to other specified factors, initial encounter; Y93.89 Activity, other specified; Y92.9 Unspecified place or not applicable; I10 Essential (primary) hypertension; E11.42 Type 2 diabetes mellitus with diabetic polyneuropathy
CPT/HCPCS: 90714; 99283

== ENCOUNTER 2019-12-23 16:15 | Emergency (ER) | payer OTHER ==
--- OUTSIDE RECORDS SUMMARY | 2019-12-23 16:18 | XMS REPORT ---
:1990 [facility] Address [address] [place] [address] [address]. [address] [place] [address] Care Team Providers Name Role Phone Unavailable Unavailable Unavailable Problems This patient has no known problems. Allergies, Adverse Reactions, Alerts This patient has no known allergies or adverse reactions. Medications This patient has no known medications.
[2019-12-23] MEDS ORDERED: NA CHLORIDE 0.9% 1,000 ML ONE ×3 (16:52→22:52)
[2019-12-23 16:54] LABS: Absolute Lymphocytes (CBC) 1.8 K/uL (0.7-4.9); Basophils % 0.2 % (0-1.3); Hematocrit 37.1 % (39.6-49.0); Lymphocytes % 12.1 % (15.3-44.8); MPV 7.2 fL (7.6-11.3); RBC Red Blood Cell Count 4.51 M/uL (4.33-5.43)
[2019-12-23 16:55] LABS: Protime INR 0.91
[2019-12-23] MEDS ORDERED: INSULIN -REGULAR HUMAN 50 UNIT/0.5 ML ML ONE (17:03)
[2019-12-23 17:13] LABS: ALT/SGPT 26 U/L (12-78); AST/SGOT 16 U/L (15-37); Albumin 3.7 g/dL (3.4-5.0); Alkaline Phosphatase 133 U/L (45-117); BUN Blood Urea Nitrogen 27 mg/dL (7-18); Bicarbonate 25 mmol/L (21-32); Bilirubin Direct < 0.1 mg/dL (0-0.2); Bilirubin Total 0.2 mg/dL (0.2-1.0); Glucose Level 395 mg/dL (74-106); Magnesium 2.1 mg/dL (1.8-2.4); NT PRO-BNP 111 pg/mL (<125); Potassium 4.2 mmol/L (3.5-5.1); Protein, Total 7.6 g/dL (6.4-8.2); Sodium Level 135 mmol/L (136-145); Troponin (Emerg Dept Use Only) < 0.02 ng/mL (0.0-0.045)
--- NOTE | 2019-12-23 20:53 | RAD REPORT ---
EXAM DESCRIPTION: MRI - C Spine Wo Cont - 12/23/2019 8:05 pm CLINICAL HISTORY: numbness COMPARISON: No comparisons TECHNIQUE: Sagittal T1-weighted, T2-weighted and T2-STIR sequences were obtained as well as T2 medic sequence. FINDINGS: Motion degradation is present particularly on the axial views. Exam is still considered di agnostic. Cervical vertebral bodies are normal in height and alignment. No suspicious marrow edema or marrow re placing process. No paraspinal mass. Cerebellar tonsils and mid-line skull base show no suspicious finding. No significant finding at the C1 and C2 levels. C2-3 level: No significant findings. C3-4 level: No significant findings. C4-5 level: Prominent disc bulge in the midline attenuates the anterior subarachnoid space. Canal is borderline stenotic at 9-10 mm. No significant foraminal encroachment. No contact of the cord confirm ed. C5-6 level: Midline disc bulge partially attenuates the anterior subarachnoid space. Canal diameter i s 10 mm. No significant foraminal encroachment. C6-7 level: Minimal disc bulge with partial attenuation of the anterior subarachnoid space. Midline c anal diameter is 10 mm. No significant foraminal encroachment. C7-T1 level: No significant findings. No syrinx or other focal cord abnormality. No expansile lesion or cord signal abnormality. IMPRESSION: No abnormality of the cervical cord. Disc bulge changes at C4-5, C5-6 and C6-7 cause borderline to mild central spinal stenosis. No contac t of the cord.
--- NOTE | 2019-12-23 20:58 | RAD REPORT ---
EXAM DESCRIPTION: MRI - Thoracic Spine Wo Contr - 12/23/2019 8:05 pm CLINICAL HISTORY: Bilateral arm and leg weakness, numbness COMPARISON: None. TECHNIQUE: Sagittal T1 weighted, T2 weighted and T2 STIR weighted sequences were obtained. Axial T2 weighted images were obtained through each disc level. FINDINGS: Thoracic bodies are normal in height and alignment. No marrow edema or marrow replacing pr ocess. No paraspinal mass. Thoracic cord shows no expansile change, narrowing or signal abnormality. No syrinx. No central spinal stenosis seen. Prominent disc bulge is seen than upper thoracic level to the right of midline. Contact of the cord is not seen. No significant foraminal stenosis. Motion degradation is present. Exam is still considered diagnostic quality. IMPRESSION: MRI thoracic spine examination showing no significant or suspicious finding.
--- NOTE | 2019-12-23 21:01 | RAD REPORT ---
EXAM DESCRIPTION: MRI - Lumbar Spine Wo Con - 12/23/2019 8:12 pm CLINICAL HISTORY: numbness, bilateral upper extremity and lower extremity numbness and tingling. COMPARISON: No comparisons TECHNIQUE: Sagittal T1-weighted, T2-weighted and T2-STIR weighted sequences were obtained. Axial T1 -weighted and heavily T2-weighted sequenceswere obtained through the lumbar disc levels. FINDINGS: Lumbar bodies are normal in height and alignment. Marrow edema is present abutting the end plates at L4-5. This is active degenerative change. No suspicious marrow pattern. No paraspinal mass. Conus is normal with no clumping or thickening of the cauda equina. T12-L1 level: No significant findings. L1-2 level: No significant findings. L2-3 level: Disc is desiccated with slight loss in disc height. No herniation or significant disc bul ge. L3-4 level: Disc is desiccated. Midline annular fissure present. Minimal disc bulge changes are prese nt not resulting in canal or foramen stenosis. Minimal marrow edema abutting the endplates. L4-5 level: Disc is thinned and desiccated. Disc herniation is present measuring 13 mm CC x 16 mm TR by 5 mm AP. There is flattening of the thecal sac. Central canal diameter is 11 mm. Endplate spurring and disc bulge changes continue into each exit foramen. Mild to moderate bilateral foraminal stenosi s. L5-S1 level: Disc is desiccated. Broad-based disc herniation is present in the central canal 16 mm tr ansverse by 3 mm AP x 6 mm CC. There is flattening of the thecal sac. Central canal is 13 mm in the m idline. Mild foraminal disc bulge with minimal foraminal stenosis. IMPRESSION: L4-5 prominent disc herniation. There is flattening of the thecal sac but no central spi nal stenosis. Mild to moderate bilateral foraminal stenosis from protruding disc material and endplate spurring. L5-S1 disc herniation as detailed. No central spinal stenosis. Mild foraminal stenosis changes are pr esent bilaterally. Active marrow degenerative change in the L4 and L5 bodies. No worrisome marrow pattern.
--- NOTE | 2019-12-23 23:26 | EDPHYS ---
Physician Documentation [facility] Name: Parminder Smiley Age: 29 yrs Sex: Male : 1990 Arrival Date: 12/23/2019 Time: 16:16 Bed 18 Private MD: ED Physician Caleb Marrero HPI: 12/22 16:38 This 29 yrs old Male presents to ER via Wheelchair with complaints of Numbness jmm Of Arm, Numbness Of Legs, Weakness. 16:38 Onset: The symptoms/episode began/occurred this morning. Modifying factors: The jmm symptoms are alleviated by nothing. the symptoms are aggravated by nothing. Associated signs and symptoms: Pertinent negatives: fever. 16:38 This is a 29 year old male with a history of DM, HTN, neuropathy that presents to the [facility] ED with complaints of numbness from his elbows down and from his knees down beginning this morning when he awoke. Patient states he fell asleep in his recliner last night. Patient states he is still able to move his extremities but has less sensation. Denies recent illness or fever. . Historical: - Allergies: 16:36 No Known Allergies; ca1 - Home Meds: 16:36 gabapentin 600 mg oral tab 1 tab [Active]; ca1 - PMHx: 16:36 Cellulitis; Diabetes - IDDM; Hypertension; Neuropathy; ca1 - PSHx: 16:36 None; ca1 - Immunization history:: Adult Immunizations up to date, Flu vaccine is up to date. - Social history:: Smoking status: Patient denies any tobacco usage or history of. ROS: 16:38 Cardiovascular: Negative for chest pain, palpitations, and edema, Respiratory: Negative jmm for shortness of breath, cough, wheezing, and pleuritic chest pain. 16:38 Constitutional: Positive for Negative for body aches, fever. 16:38 MS/extremity: Positive for paresthesias. 16:38 Neuro: Positive for numbness. 16:38 All other systems are negative. Exam: 16:38 Constitutional: This is a well developed, well nourished patient who is awake, alert, jmm and in no acute distress. Head/Face: atraumatic. Eyes: EOMI, no conjunctival erythema appreciated ENT: Moist Mucus Membranes Neck: Trachea midline, Supple Chest/axilla: Normal chest wall appearance and motion. Cardiovascular: Regular rate and rhythm. No edema appreciated Respiratory: Normal respirations, no respiratory distress appreciated Abdomen/GI: Non distended, soft Back: Normal ROM Skin: General appearance color normal 16:38 Musculoskeletal/extremity: ROM: intact in all extremities, Circulation is intact in all extremities. Full motor strength appreciated to upper and lower extremities. 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 16:38 Skin: Appearance: Color: normal in color. 16:38 Neuro: Orientation: is normal, Mentation: is normal, Memory: is normal. 16:38 Neuro: decreased sensation noted to the right upper extremity from the elbow down, and left elbow down, right knee down and left knee down. motor function grossly intact bilaterally. . 16:38 Psych: Behavior/mood is pleasant, cooperative. Vital Signs: 16:30 BP 107 / 58; Pulse 124; Resp 18 S; Temp 98.2(O); Pulse Ox 100% on R/A; Weight 84.82 kg ca1 (R); Height 6 ft. 2 in. (187.96 cm) (R); Pain 2/10; 17:00 BP 120 / 76; Pulse 116; Resp 18 S; Pulse Ox 100% on R/A; ca1 17:30 BP 127 / 80; Pulse 114; Resp 16; Pulse Ox 99% on R/A; ca1 20:30 BP 88 / 53; Pulse 116; Resp 16; Pulse Ox 100% on R/A; jb4 20:45 BP 117 / 71; Pulse 117; Resp 16; Temp 98.9(O); Pulse Ox 100% on R/A; jb4 21:45 BP 123 / 85; Pulse 116; Resp 18; Pulse Ox 97% on R/A; jb4 23:15 BP 131 / 82; Pulse 117; Resp 18; Pulse Ox 99% on R/A; jb4 12/23 00:30 BP 106 / 54; Pulse 115; Resp 18; Pulse Ox 97% on R/A; Pain 0/10; jb4 12/22 16:30 Body Mass Index 24.01 (84.82 kg, 187.96 cm) ca1 Procedures: 12/22 23:22 Lumbar Puncture: Patient placed in left lateral decubitus position. Prepped with rin Betadine. Draped using sterile technique. Puncture site dressed with band aid, Patient tolerated well. MDM: 16:24 Patient medically screened. [facility] 23:22 Data reviewed: vital signs, nurses notes. Counseling: I had a detailed discussion with [facility] the patient and/or guardian regarding: the historical points, exam findings, and any diagnostic results supporting the discharge/admit diagnosis, lab results, radiology results, the need to transfer to another facility, for higher level of care. ED course: I discussed the patient with Dr. Burkett whom will consult on admission. I discussed the patient with Dr. Goodman whom accepted transfer. . 12/23 02:56 ED course: ALLYSSA Bella notified RN at [facility] of results. [facility] 12/22 16:37 Order name: Basic Metabolic Panel; Complete Time: 17:18 [facility] 12/22 16:37 Order name: CBC with Diff; Complete Time: 17:01 [facility] 12/22 16:37 Order name: LFT's; Complete Time: 17:18 [facility] 12/22 16:37 Order name: Magnesium; Complete Time: 17:18 [facility] 12/22 16:37 Order name: NT PRO-BNP; Complete Time: 17:18 [facility] 12/22 16:37 Order name: PT-INR; Complete Time: 17:01 [facility] 12/22 16:37 Order name: Troponin (emerg Dept Use Only); Complete Time: 17:18 [facility] 12/22 16:56 Order name: Glucose, Ancillary Testing; Complete Time: 17:01 [facility] 12/22 20:34 Order name: Procalcitonin; Complete Time: 21:34 [facility] 12/22 20:34 Order name: Lactate; Complete Time: 21:26 [facility] 12/22 20:41 Order name: Glucose, Ancillary Testing; Complete Time: 20:41 [facility] 12/22 22:42 Order name: D-Dimer; Complete Time: 23:32 [facility] 12/22 23:22 Order name: CSF Bacterial Antigens (tube 1); Complete Time: 02:46 [facility] 12/22 23:22 Order name: Csf Culture [facility] 12/22 16:37 Order name: EKG; Complete Time: 16:38 [facility] 12/22 16:37 Order name: Cardiac monitoring; Complete Time: 16:46 [facility] 12/22 16:37 Order name: EKG - Nurse/Tech; Complete Time: 16:46 [facility] 12/22 16:37 Order name: IV Saline Lock; Complete Time: 16:49 [facility] 12/22 16:46 Order name: Lumbar Spine Wo Con; Complete Time: 21:03 [facility] 12/22 17:48 Order name: Thoracic Spine Wo Contr; Complete Time: 21:02 [facility] 12/22 20:03 Order name: C Spine Wo Cont; Complete Time: 21:02 [facility] 12/22 22:45 Order name: Chest Single View XRAY [facility] 12/22 23:22 Order name: Fluid Cell Count,Body; Complete Time: 02:46 [facility] 12/22 23:22 Order name: Spinal Fluid Profile; Complete Time: 02:46 [facility] 12/22 16:37 Order name: Labs collected and sent; Complete Time: 16:49 [facility] 12/22 16:37 Order name: O2 Per Protocol; Complete Time: 16:49 [facility] 12/22 16:37 Order name: O2 Sat Monitoring; Complete Time: 16:49 [facility] 12/22 21:35 Order name: Lumbar Puncture Setup; Complete Time: 22:58 [facility] 12/22 23:22 Order name: LP Consents; Complete Time: 23:23 [facility] Administered Medications: 12/22 16:49 Drug: NS 0.9% 1000 ml Route: IV; Rate: 1000 ml; Site: right antecubital; ca1 17:55 Follow up: Response: No adverse reaction; IV Status: Completed infusion ca1 17:00 Drug: Insulin Regular Human 5 units {Co-Signature: vc Jayy Torres RN).} Route: ca1 IVP; Site: right antecubital; 20:30 Follow up: Response: No adverse reaction; Blood sugar is lowered jb4 20:35 Drug: NS 0.9% 1000 ml Route: IV; Rate: 1 bolus; Site: right antecubital; jb4 21:15 Follow up: Response: No adverse reaction; IV Status: Completed infusion; IV Intake: jb4 1000ml 22:50 Drug: NS 0.9% 1000 ml Route: IV; Rate: 1 bolus; Site: right antecubital; jb4 04 00:15 Follow up: Response: No adverse reaction; IV Status: Completed infusion; IV Intake: jb4 1000ml Disposition: 07:10 Co-signature as Attending Physician, Caleb Marrero MD. rn Disposition: 12/23/19 23:[address] [facility]. Diagnosis are Ascending Paralysis, Neuropathy. - Reason for transfer: Higher level of care. - Accepting physician is Along. - Condition is Stable. - Problem is new. - Symptoms are unchanged. Signatures: Dispatcher [employer] EDTN Ronn Drake PA PA Caleb Hi MD MD rn Bryson, James, RN RN jb4 Mobile, Clara mw2 Janel Padilla RN RN ca1 Cammie Torres RN, vc Corrections: (The following items were deleted from the chart) 12/22 17:48 16:46 Thoracic Spine W/Con ordered. [facility] EDTN 20:03 16:46 C Spine W Cont ordered. [facility] 12/23 01:00 04 23:26 12/23/2019 23:[address] [facility]. mw2 Diagnosis is Ascending Paralysis; Neuropathy. Reason for transfer: Higher level of care. Accepting physician is Along. Condition is Stable. Problem is new. Symptoms are unchanged. rin
--- NOTE | 2019-12-23 23:26 | ER ---
Nurse's Notes [facility] Name: Parminder Smiley Age: 29 yrs Sex: Male : 1990 Arrival Date: 12/23/2019 Time: 16:16 Bed 18 Private MD: Diagnosis: Ascending Paralysis;Neuropathy Presentation: 12/22 16:30 Chief complaint: Patient states: Numbness and weakness on both legs, from knees down ca1 and on both arms, from the elbows down. C/O tingling sensation on both arms. No facial drooping. Slept at around 11pm last night without symptoms, woke up at around 4-5am today and started feeling the symptoms. History of neuropathy on legs and foot drop 3 years ago. Denies cough, congestion and fever. Coronavirus screen: Patient denies fever greater than 100.4F, cough, shortness of breath, or difficulty breathing. Proceed with normal triage process. Ebola Screen: Patient negative for fever greater than or equal to 101.5 degrees Fahrenheit, and additional compatible Ebola Virus Disease symptoms Patient denies exposure to infectious person. Patient denies travel to an Ebola-affected area in the 21 days before illness onset. No symptoms or risks identified at this time. Initial Sepsis Screen: Does the patient meet any 2 criteria? No. Patient's initial sepsis screen is negative. Does the patient have a suspected source of infection? No. Patient's initial sepsis screen is negative. Risk Assessment: Do you want to hurt yourself or someone else? Patient reports no desire to harm self or others. Onset of symptoms was December 23, 2019 at 04:00. 16:30 Method Of Arrival: Wheelchair ca1 16:30 Acuity: REYMUNDO 2 ca1 Historical: - Allergies: 16:36 No Known Allergies; ca1 - Home Meds: 16:36 gabapentin 600 mg oral tab 1 tab [Active]; ca1 - PMHx: 16:36 Cellulitis; Diabetes - IDDM; Hypertension; Neuropathy; ca1 - PSHx: 16:36 None; ca1 - Immunization history:: Adult Immunizations up to date, Flu vaccine is up to date. - Social history:: Smoking status: Patient denies any tobacco usage or history of. Screenin:50 Abuse screen: Denies threats or abuse. Denies injuries from another. Nutritional ca1 screening: No deficits noted. Tuberculosis screening: No symptoms or risk factors identified. Fall Risk Secondary diagnosis (15 points) impaired mobility, IV access (20 points). Gait- Weak (10 pts.). Total Swift Fall Scale indicates High Risk Score (45 or more points). Fall prevention measures have been instituted. Side Rails Up X 2 Frequent Obs/Assessments Occuring Family Present and informed to notify staff if the need to leave the bedside As available patient and family educated on Fall Prevention Program and Strategies. Assessment: 16:50 General: Appears in no apparent distress. comfortable, Behavior is calm, cooperative, ca1 appropriate for age. Pain: Denies pain. Neuro: Level of Consciousness is awake, alert, obeys commands, Oriented to person, place, time, situation, Forensic Manager are weak bilaterally Weakness in bilateral hand(s) foot/feet Gait is unsteady, Speech is normal, Facial symmetry appears normal, Pupils are PERRLA, Tingling in right arm, left arm, right leg and left leg Numbness in right arm, left arm, right leg and left leg tingling and numbness on both legs, knees down, Both arms, elbows down. Cardiovascular: Heart tones S1 S2 present Capillary refill < 3 seconds Patient's skin is warm and dry. Rhythm is sinus tachycardia. Respiratory: Airway is patent Respiratory effort is even, unlabored, Respiratory pattern is regular, symmetrical, Breath sounds are clear bilaterally. GI: Abdomen is flat, non-distended, Bowel sounds present X 4 quads. Abd is soft and non tender X 4 quads. : No signs and/or symptoms were reported regarding the genitourinary system. EENT: No signs and/or symptoms were reported regarding the EENT system. Derm: Skin is intact, is healthy with good turgor, Skin is pink, warm \T\ dry. Musculoskeletal: Circulation, motion, and sensation intact. Capillary refill < 3 seconds. 17:40 Reassessment: Patient appears in no apparent distress at this time. Patient and/or ca1 family updated on plan of care and expected duration. Pain level reassessed. Patient is alert, oriented x 3, equal unlabored respirations, skin warm/dry/pink. 18:00 Reassessment: Pt to CT. ca1 19:00 Reassessment: Pt is still in CT. jb4 20:30 Reassessment: Patient and/or family updated on plan of care and expected duration. Pain jb4 level reassessed. Patient is alert, oriented x 3, equal unlabored respirations, skin warm/dry/pink. PT reports that the TOY numbness and weakness of the arms and legs is the same. B/p 88/55 HR 115, provider notified, see MAR for orders. 21:30 Reassessment: Patient appears in no apparent distress at this time. Patient and/or jb4 family updated on plan of care and expected duration. Pain level reassessed. Patient is alert, oriented x 3, equal unlabored respirations, skin warm/dry/pink. 22:30 Reassessment: Patient appears in no apparent distress at this time. Patient and/or jb4 family updated on plan of care and expected duration. Pain level reassessed. Patient is alert, oriented x 3, equal unlabored respirations, skin warm/dry/pink. 23:00 Reassessment: LP performed by PRIYANKA Brody. jb4 12/23 00:00 Reassessment: Patient appears in no apparent distress at this time. Patient and/or jb4 family updated on plan of care and expected duration. Pain level reassessed. Patient is alert, oriented x 3, equal unlabored respirations, skin warm/dry/pink. 01:00 Reassessment: Patient appears in no apparent distress at this time. Patient and/or jb4 family updated on plan of care and expected duration. Pain level reassessed. Patient is alert, oriented x 3, equal unlabored respirations, skin warm/dry/pink. Pt assisted to EMS stretcher. Ambulated with assistance. Continues to have numbness and weakness in TOY arms and legs. Has full range of motion of his arms, and neck. IV site is clean dry and intact. Converted to saline lock. Transferred out of ED via EMS. Vital Signs: 12/22 16:30 BP 107 / 58; Pulse 124; Resp 18 S; Temp 98.2(O); Pulse Ox 100% on R/A; Weight 84.82 kg ca1 (R); Height 6 ft. 2 in. (187.96 cm) (R); Pain 2/10; 17:00 BP 120 / 76; Pulse 116; Resp 18 S; Pulse Ox 100% on R/A; ca1 17:30 BP 127 / 80; Pulse 114; Resp 16; Pulse Ox 99% on R/A; ca1 20:30 BP 88 / 53; Pulse 116; Resp 16; Pulse Ox 100% on R/A; jb4 20:45 BP 117 / 71; Pulse 117; Resp 16; Temp 98.9(O); Pulse Ox 100% on R/A; jb4 21:45 BP 123 / 85; Pulse 116; Resp 18; Pulse Ox 97% on R/A; jb4 23:15 BP 131 / 82; Pulse 117; Resp 18; Pulse Ox 99% on R/A; jb4 04 00:30 BP 106 / 54; Pulse 115; Resp 18; Pulse Ox 97% on R/A; Pain 0/10; jb4 12/22 16:30 Body Mass Index 24.01 (84.82 kg, 187.96 cm) ca1 ED Course: 12/22 16:16 Patient arrived in ED. ag5 16:24 Ronn Drake PA is PHCP. jmm 16:24 Caleb Marrero MD is Attending Physician. jmm 16:34 Triage completed. ca1 16:36 Arm band placed on right wrist. ca1 16:40 Initial lab(s) drawn, by in, sent to lab. Inserted saline lock: 18 gauge in right ca1 antecubital area, using aseptic technique. Blood collected. 16:40 No provider procedures requiring assistance completed. ca1 16:46 EKG done, by ED staff, reviewed by Ronn MATHEW. mh5 16:47 Patient has correct armband on for positive identification. Placed in gown. Bed in low mh5 position. Call light in reach. Side rails up X2. Warm blanket given. finger lift operator on. Pulse ox on. NIBP on. 16:48 Janel Padilla, RN is Primary Nurse. ca1 20:05 Lumbar Spine Wo Con In Process Unspecified. EDMS 20:05 Thoracic Spine Wo Contr In Process Unspecified. EDMS 20:06 C Spine Wo Cont In Process Unspecified. EDMS 21:59 Francisco J Hawkins, ALLYSSA is Primary Nurse. jb4 22:58 Chest Single View XRAY In Process Unspecified. EDMS 22:58 D-Dimer Sent. jb4 23:30 Notified Nurse Practitioner and/or Physician [employer] Consultant of a critical lab result(s), jb4 D-Dimer of 524. 12/23 00:30 Patient transferred, IV remains in place. jb4 Administered Medications: 12/22 16:49 Drug: NS 0.9% 1000 ml Route: IV; Rate: 1000 ml; Site: right antecubital; ca1 17:55 Follow up: Response: No adverse reaction; IV Status: Completed infusion ca1 17:00 Drug: Insulin Regular Human 5 units {Co-Signature: vc (Cammie Torres RN).} Route: ca1 IVP; Site: right antecubital; 20:30 Follow up: Response: No adverse reaction; Blood sugar is lowered jb4 20:35 Drug: NS 0.9% 1000 ml Route: IV; Rate: 1 bolus; Site: right antecubital; jb4 21:15 Follow up: Response: No adverse reaction; IV Status: Completed infusion; IV Intake: jb4 1000ml 22:50 Drug: NS 0.9% 1000 ml Route: IV; Rate: 1 bolus; Site: right antecubital; jb4 12/23 00:15 Follow up: Response: No adverse reaction; IV Status: Completed infusion; IV Intake: jb4 1000ml Intake: 12/22 21:15 IV: 1000ml; Total: 1000ml. jb4 12/23 00:15 IV: 1000ml; Total: 2000ml. jb4 Outcome: 12/22 23:26 ER care complete, transfer ordered by . rin 12/23 01:00 Patient left the ED. mw2 01:00 Transferred by ground EMS to [facility], Transfer form completed. jb4 X-rays sent w/ patient. 01:00 Condition: stable 01:00 Discharge instructions given to patient, Instructed on the need for transfer, Demonstrated understanding of instructions. Signatures: Dispatcher [employer] EDMS Ronn Drake PA PA jmm Bryson, James, RN RN jb4 Martinez, Maria Clara Barrow mw2 Janel Padilla RN RN ca1 Eriberto Garcia 5 Cammie Torres RN, vc Corrections: (The following items were deleted from the chart) 12/22 17:43 16:30 BP 120 / 76; Pulse 116bpm; Resp 18bpm; Spontaneous; Pulse Ox 100% RA; ca1 ca1 18:21 18:20 Reassessment: Patient appears in no apparent distress at this time. ca1 ca1 18:21 18:20 Reassessment: Pt to MRI ca1 ca1 18:30 18:20 Reassessment: Pt to CT ca1 ca1 20:53 20:45 BP 117 / 71; Pulse 117bpm; Resp 100bpm; Pulse Ox 100% RA; Temp 98.9F Oral; jb4 jb4 12/23 05:43 01:00 Reassessment: Patient appears in no apparent distress at this time. Patient jb4 and/or family updated on plan of care and expected duration. Pain level reassessed. Patient is alert, oriented x 3, equal unlabored respirations, skin warm/dry/pink. Patient is alert/active/playful, equal unlabored respirations, skin warm/dry/pink. Pt assisted to EMS stretcher. Ambulated with assistance. Continues to have numbness and weakness in TOY arms and legs. IV site is clean dry and intact. Converted to saline lock. Transferred out of ED via EMS. jb4
[2019-12-24 01:19] VITALS: TEMP 98.9
[2019-12-24 01:20] VITALS: BP 123/85; O2SAT 97
[2019-12-24 02:39] LABS: CSF Glucose 195 mg/dL (40-70)
[2019-12-24 02:41] LABS: Body Fluid Source CSF; Color of fluid Colorless (COLORLESS); Fluid Total Volume 45 ml
[2019-12-24 02:42] LABS: Appearance CLEAR (CLEAR); Body Fluid WBC 2 /mm^3
[2019-12-24 02:43] LABS: Appearance CLEAR (CLEAR); Body Fluid Source CSF; Color of fluid Colorless (COLORLESS)
[2019-12-24 02:44] LABS: Body Fluid WBC 3 /mm^3
--- NOTE | 2019-12-24 08:09 | EKG ---
Test Date: 2019-12-23 Test Time: 16:36:54 Manager Development: AYANNA MEASUREMENT RESULTS: Intervals: Rate: 119 NC: 144 QRSD: 88 QT: 338 QTc: 475 [place]: P: 51 NC: 144 QRS: 63 T: 68 INTERPRETIVE STATEMENTS: Sinus tachycardia Otherwise normal ECG Compared to ECG 07/12/2017 16:36:23 No significant changes Electronically Signed On 12-24-19 08:07:53 CDT by Gregg Ye
--- NOTE | 2019-12-24 08:23 | RAD REPORT ---
EXAM DESCRIPTION: John Single View12/23/2019 10:58 pm CLINICAL HISTORY: Fever COMPARISON: 2018 FINDINGS: The lungs appear clear of acute infiltrate. The heart is normal size IMPRESSION: No acute abnormalities displayed
== END 2019-12-24 01:00 | disposition short-term general hospital (02) ==
LOC: ER 16:15
PROC: 009U3ZX Drainage of Spinal Canal, Percutaneous Approach, Diagnostic (ICD-10-PCS; principal; 2019-12-24)
DX: G61.0 Guillain-Barre syndrome (principal); E11.40 Type 2 diabetes mellitus with diabetic neuropathy, unspecified; I10 Essential (primary) hypertension
CPT/HCPCS: 96361; 93005; 87070; 85025; 80048; 36415; 89050 ×2; 83735; 84157; 85610; 82945; 82947 ×2; 85379; 80076; 86403 ×6; 83605; 84484; 84145; 83880; 71045; 72141; 72146; 72148; 62270 ×2; 96374; 99285; J7030 ×3

== ENCOUNTER 2021-01-09 13:25 | Emergency (ER) | payer BC ==
--- OUTSIDE RECORDS SUMMARY | 2021-01-09 13:36 | XMS REPORT | Continuity of Care Document ---
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 Social History Social Habit Start Date Stop Date Quantity Comments Source History [facility] - Alcohol Std Drinks Medica l Center History [facility] - Alcohol Binge Medical Jania ter Sex Assigned At [facility] Tobacco use and 2019-12-24 2019-12-[address] [facility] - exposure 00:00:00 00:00:00 Medical Center Alcohol intake 2019-12-24 [facility] non-drinker of Medical Ce nter alcohol (finding) History [facility] 2019-12-24 2019-12-[address] [facility] - Alcohol Frequency 00:00:00 00:00:00 Medical Center Smoking Status Start Date Stop Date Source Never smoker [facility] M ed[facility] Medications Ordered Filled Start Stop Current Ordering Indication Dosage Frequency Signature Comments Components Source Medication Medication Date Date Medication? Clinician (SIG) Name Name gabapentin 2020-0 Yes 1800mg Q.5D Take 1,[address] (NEURONTIN) 4-06 mg by [facility] - 600 MG 13:09: mouth 2 Medical tablet 24 (two) Center times daily . insulin 2020-0 Yes type [address] [address] lispro 4-06 diabetes subcutaneo Tien es - (HUMALOG) 13:09: mellitus usly 3 Me dical 100 unit/mL 24 (three) Cente r injection times daily before meals Pt takes 10 units at breakfast, 11 units at lunch, and 12 units at dinner . lisinopriL 2020-0 Yes 20mg QD Take [address] (PRINIVIL,Z 4-06 by mouth [facility] - ESTRIL) 20 13:09: daily. Medic al MG tablet 24 Center acetaminoph 2020-0 Yes pain 1{tbl} Take [address] en-codeine 4-06 tablet by Luke [facility] - (TYLENOL 13:09: mouth Medical #4) 300-60 24 every 8 Center mg per (eight) tablet hours as needed for Pain. methocarbam 2020-0 Yes 750mg Q.5D Take [address] oL 4-06 mg by [facility] - (ROBAXIN) 13:09: mouth 2 Medic al 750 MG 24 (two) Center tablet times daily. insulin 2020-0 Yes 25U QD Inject 25 [facility] detemir 4-06 Units [facility] - U-100 00:00: subcutaneo Medica l (LEVEMIR) 00 usly Center 100 unit/mL nightly. injection Procedures This patient has no known procedures. Plan of Care Planned Activity Planned Date Details Comments Source Future Scheduled 2020-05-22 INFLUENZA VACCINE (#1) [facility] - Test 00:00:00 [code = INFLUENZA Medical Ce nter VACCINE (#1)] Future Scheduled 2020-03-[address] [facility] [address] [facility] - Test 00:00:00 [facility] (procedure) [code = 32257229] Future Scheduled [address] [facility] - Test 00:00:00 (procedure) [code = Medical Center 34911606] Future Scheduled 1999 DIABETIC EYE EXAM [facility] - Test 00:00:00 [code = DIABETIC EYE Medical Center EXAM] Future Scheduled [address] [facility] - Test 00:00:00 examination Medical Center (regime/therapy) [code = 273329274] Future Scheduled 1999 Urine screening for [facility] - Test 00:00:00 protein (procedure) Medical Center [code = 728359411] Future Scheduled [address] [facility] - Test 00:00:00 0-64 YRS (1 of 1 - Medical C enter PPSV23) [code = PNEUMOCOCCAL VACCINE 0-64 YRS (1 of 1 - PPSV23)] Results Test Description Test Time Test Comments Results Result Comments Source BLOOD CULTURE 2019-12-29 07:00:00 Test Item Value Reference Range Interpretation Comme nts CULTURE (BEAKER) (test code = 1095) No growth in 5 days BLOOD [id number] 07:00:00 Test Item Value Reference Range Interpretation Comments CULTURE (BEAKER) (test No growth in 5 days code = 1095) POCT-GLUCOSE [id number] 11:56:00 Test Item Value Reference Range Interpretation Comments POC-GLUCOSE METER 260 mg/dL 70-110 H : TESTED A T [facility] 6720 (BEAKER) (test code [facility], = 1538) [address]: Metal Mold Dresser/Techni lior ID = [id number] for YULI JUDDA POCT-GLUCOSE [id number] 08:42:00 Test Item Value Reference Range Interpretation Comments POC-GLUCOSE METER 230 mg/dL 70-110 H : TESTED A T [facility] 6720 (BEAKER) (test code = [facility], 1538) [address]69: Metal Mold Dresser/Techni lior ID = [id number] for YURI ROSARIO BASIC METABOLIC [id number] 04:48:00 Test Item Value Reference Range Interpretation Comments SODIUM (BEAKER) (test 139 meq/L 136-145 code = 381) POTASSIUM (BEAKER) 3.6 meq/L 3.5-5.1 (test code = 379) CHLORIDE (BEAKER) 107 meq/L 98-107 (test code = 382) CO2 (BEAKER) (test 26 meq/L 22-29 code = 355) BLOOD UREA NITROGEN 13 mg/dL 7-21 (BEAKER) (test code = 354) CREATININE (BEAKER) 0.86 mg/dL 0.57-1.25 (test code = 358) GLUCOSE RANDOM 241 mg/dL 70-105 H (BEAKER) (test code = 652) CALCIUM (BEAKER) 9.0 mg/dL 8.4-10.2 (test code = 697) EGFR (BEAKER) (test INSUFFIC IENT CLINICAL code = 1092) DATA TO CALCULA TE ESTIMATED GFR. Metal Mold Dresser ID - LUZMA [id number] 04:40:00 Test Item Value Reference Range Interpretation Comments MAGNESIUM (BEAKER) (test code = 2.1 mg/dL 1.6-2.6 627) Metal Mold Dresser ID - LUZMA WCBC W/PLT COUNT & AUTO [id number] 04:23:00 Test Item Value Reference Range Interpretation Comments WHITE BLOOD CELL COUNT (BEAKER) 7.3 K/ L 3.5-10.5 (test code = 775) RED BLOOD CELL COUNT (BEAKER) 4.01 M/ L 4.63-6.08 L (test code = 761) HEMOGLOBIN (BEAKER) (test code = 10.7 GM/DL 13.7-17.5 L 410) HEMATOCRIT (BEAKER) (test code = 32.0 % 40.1-51.0 L 411) MEAN CORPUSCULAR VOLUME (BEAKER) 79.8 fL 79.0-92.2 (test code = 753) MEAN CORPUSCULAR HEMOGLOBIN 26.7 pg 25.7-32.2 (BEAKER) (test code = 751) MEAN CORPUSCULAR HEMOGLOBIN CONC 33.4 GM/DL 32.3-36.5 (BEAKER) (test code = 752) RED CELL DISTRIBUTION WIDTH 12.3 % 11.6-14.4 (BEAKER) (test code = 412) PLATELET COUNT (BEAKER) (test 272 K/CU MM 150-450 code = 756) MEAN PLATELET VOLUME (BEAKER) 8.5 fL 9.4-12.4 L (test code = 754) NUCLEATED RED BLOOD CELLS 0 /100 WBC 0-0 (BEAKER) (test code = 413) NEUTROPHILS RELATIVE PERCENT 47 % (BEAKER) (test code = 429) LYMPHOCYTES RELATIVE PERCENT 41 % (BEAKER) (test code = 430) MONOCYTES RELATIVE PERCENT 10 % (BEAKER) (test code = 431) EOSINOPHILS RELATIVE PERCENT 2 % (BEAKER) (test code = 432) BASOPHILS RELATIVE PERCENT 0 % (BEAKER) (test code = 437) NEUTROPHILS ABSOLUTE COUNT 3.36 K/ L 1.78-5.38 (BEAKER) (test code = 670) LYMPHOCYTES ABSOLUTE COUNT 2.96 K/ L 1.32-3.57 (BEAKER) (test code = 414) MONOCYTES ABSOLUTE COUNT (BEAKER) 0.72 K/ L 0.30-0.82 (test code = 415) EOSINOPHILS ABSOLUTE COUNT 0.17 K/ L 0.04-0.54 (BEAKER) (test code = 416) BASOPHILS ABSOLUTE COUNT (BEAKER) 0.03 K/ L 0.01-0.08 (test code = 417) IMMATURE GRANULOCYTES-RELATIVE 0 % 0-1 PERCENT (BEAKER) (test code = 2801) MR, SPINE, CERVICAL, [id number] 01:07:00FINAL REPORT MRI Brain with and without contrast. MRI cervical spine with IV contrast. CLINICAL HISTORY: symmetric bilateral upper and lower extremity weakness; concern for central demyelinating process Technique: MRI of the brain utilizing axial T1, T2, FLAIR, GRE, DWI, sagittal T1; and postgadolinium axial, sagittal, and coronal T1-weighted images. Multiplanar multisequence MRI images of the cervical spine obtained without and with IV contrast. Comparisons: None Findings:MRIbrain:There is no abnormal intracranial enhancement or mass. There is no evidence of acute infarct or hemorrhage. There are no extra-axial fluid collections. The craniocervical junction is preserved. The major intracranial flow-voids appear patent. Mild paranasal sinus mucosal thickening. MRI cervical spine. There is no evidence of cord compression, signal abnormality or pathologic enhancement. Cervical vertebral bodies maintain normal height, alignment and signal intensity. No evidence of acuteosseous fracture or suspicious osseous lesion. Intervertebral disc spaces are preserved. No high-grade central spinal canal or neural foraminal stenosis. IMPRESSION: No acute intracranial abnormality. No evidence of demyelinating plaque or pathologic enhancement. MR cervical spine without acute finding. No evidence of demyelinating plaque or pathologic enhancement. Signed: Rogerio Pruitt MDReport Verified Date/Time: 12/26/2019 01:07:39 , BRAIN, [id number] 01:07:00FINAL REPORT MRI Brain with and without contrast. MRI cervical spine with IV contrast. CLINICAL HISTORY: symmetric bilateral upper and lower extremity weakness; concern for central demyelinating process Technique: MRI of the brain utilizing axial T1, T2, FLAIR, GRE, DWI, sagittal T1; and postgadolinium axial, sagittal, and coronal T1-weighted images. Multiplanar multisequence MRI images of the cervical spine obtained without and with IV contrast. Comparisons: None Findings:MRIbrain:There is no abnormal intracranial enhancement or mass. There is no evidence of acute infarct or hemorrhage. There are no extra-axial fluid collections. The craniocervical junction is preserved. The major intracranial flow-voids appear patent. Mild paranasal sinus mucosal thickening. MRI cervical spine. There is no evidence of cord compression, signal abnormality or pathologic enhancement. Cervical vertebral bodies maintain normal height, alignment and signal intensity. No evidence of acuteosseous fracture or suspicious osseous lesion. Intervertebral disc spaces are preserved. No high-grade central spinal canal or neural foraminal stenosis. IMPRESSION: No acute intracranial abnormality. No evidence of demyelinating plaque or pathologic enhancement. MR cervical spine without acute finding. No evidence of demyelinating plaque or pathologic enhancement. Signed: Rogerio Pruitt MDReport Verified Date/Time: 12/26/2019 01:07:39 POCT-GLUCOSE METER 2019-12-25 21:02:00 Test Item Value Reference Range Interpretation Comments POC-GLUCOSE METER 301 mg/dL 70-110 H : TESTED A T [facility] 67[facility] ([employer]) (test code = [facility] [place], 1538) [address]: Metal Mold Dresser/Techni lior ID = [id number] for JENNIFER CARRASCO POCT-GLUCOSE [id number] 17:01:00 Test Item Value Reference Range Interpretation Comments POC-GLUCOSE METER 183 mg/dL 70-110 H : TESTED A T [facility] 6720 (BEAKER) (test code = [facility], 1538) 11098: Metal Mold Dresser/Techni lior ID = [id number] for AN JAMIE CEBALLOS T4, [id number] 14:20:00 Test Item Value Reference Range Interpretation Comments FREE T4 (BEAKER) (test code = 655) 0.99 ng/dL 0.70-1.48 Metal Mold Dresser ID - ROGER FTSH/FREE T4 IF [id number] 13:43:00 Test Item Value Reference Range Interpretation Comments THYROID STIMULATING HORMONE 0.35 uIU/mL 0.35-4.94 (BEAKER) (test code = 772) Metal Mold Dresser ID - ROGER FCREATINE KINASE (CK)2019-12-25 13:21:00 Test Item Value Reference Range Interpretation Comments CREATINE KINASE TOTAL (BEAKER) (test 105 U/L 29-200 code = 380) Metal Mold Dresser ID Jose DURAN FPOCT-GLUCOSE [id number] 12:59:00 Test Item Value Reference Range Interpretation Comments POC-GLUCOSE METER 261 mg/dL 70-110 H : TESTED A T [facility] 6720 (BEAKER) (test code = [facility], 1538) 16590: Metal Mold Dresser/Techni lior ID = [id number] for Mitzi Woodruff HEMOGLOBIN [id number] 08:42:00 Test Item Value Reference Range Interpretation Comments HEMOGLOBIN A1C (BEAKER) (test code = 13.2 % 4.3-6.1 H 368) POCT-GLUCOSE [id number] 07:47:00 Test Item Value Reference Range Interpretation Comments POC-GLUCOSE METER 266 mg/dL 70-110 H : TESTED A T [facility] 6720 (BEAKER) (test code = [facility], 1538) 21322: Metal Mold Dresser/Techni lior ID = [id number] for AN JAMIE CEBALLOS BASIC METABOLIC [id number] 06:40:00 Test Item Value Reference Range Interpretation Comments SODIUM (BEAKER) (test 138 meq/L 136-145 code = 381) POTASSIUM (BEAKER) 4.0 meq/L 3.5-5.1 (test code = 379) CHLORIDE (BEAKER) 108 meq/L 98-107 H (test code = 382) CO2 (BEAKER) (test 24 meq/L 22-29 code = 355) BLOOD UREA NITROGEN 15 mg/dL 7-21 (BEAKER) (test code = 354) CREATININE (BEAKER) 0.83 mg/dL 0.57-1.25 (test code = 358) GLUCOSE RANDOM 269 mg/dL 70-105 H (BEAKER) (test code = 652) CALCIUM (BEAKER) 9.1 mg/dL 8.4-10.2 (test code = 697) EGFR (BEAKER) (test INSUFFIC IENT CLINICAL code = 1092) DATA TO CALCULA TE ESTIMATED GFR. Metal Mold Dresser KENAN CORCORAN [id number] 06:33:00 Test Item Value Reference Range Interpretation Comments MAGNESIUM (BEAKER) (test code = 2.0 mg/dL 1.6-2.6 627) Metal Mold Dresser KENAN CORCORAN LHIV-1 ANTIGEN WITH HIV-1/2 [id number] 06:32:00 Test Item Value Reference Range Interpretation Comments HIV-1 ANTIGEN WITH HIV 1\T\2 Nonreactive Nonreactive ANTIBODY (2) (BEAKER) (test code = 2586) Metal Mold Dresser KENAN CORCORAN LCBC W/PLT COUNT & AUTO [id number] 05:58:00 Test Item Value Reference Range Interpretation Comments WHITE BLOOD CELL COUNT (BEAKER) 7.7 K/ L 3.5-10.5 (test code = 775) RED BLOOD CELL COUNT (BEAKER) 4.10 M/ L 4.63-6.08 L (test code = 761) HEMOGLOBIN (BEAKER) (test code = 10.9 GM/DL 13.7-17.5 L 410) HEMATOCRIT (BEAKER) (test code = 32.9 % 40.1-51.0 L 411) MEAN CORPUSCULAR VOLUME (BEAKER) 80.2 fL 79.0-92.2 (test code = 753) MEAN CORPUSCULAR HEMOGLOBIN 26.6 pg 25.7-32.2 (BEAKER) (test code = 751) MEAN CORPUSCULAR HEMOGLOBIN CONC 33.1 GM/DL 32.3-36.5 (BEAKER) (test code = 752) RED CELL DISTRIBUTION WIDTH 12.3 % 11.6-14.4 (BEAKER) (test code = 412) PLATELET COUNT (BEAKER) (test 271 K/CU MM 150-450 code = 756) MEAN PLATELET VOLUME (BEAKER) 8.9 fL 9.4-12.4 L (test code = 754) NUCLEATED RED BLOOD CELLS 0 /100 WBC 0-0 (BEAKER) (test code = 413) NEUTROPHILS RELATIVE PERCENT 67 % (BEAKER) (test code = 429) LYMPHOCYTES RELATIVE PERCENT 22 % (BEAKER) (test code = 430) MONOCYTES RELATIVE PERCENT 9 % (BEAKER) (test code = 431) EOSINOPHILS RELATIVE PERCENT 1 % (BEAKER) (test code = 432) BASOPHILS RELATIVE PERCENT 0 % (BEAKER) (test code = 437) NEUTROPHILS ABSOLUTE COUNT 5.17 K/ L 1.78-5.38 (BEAKER) (test code = 670) LYMPHOCYTES ABSOLUTE COUNT 1.73 K/ L 1.32-3.57 (BEAKER) (test code = 414) MONOCYTES ABSOLUTE COUNT (BEAKER) 0.68 K/ L 0.30-0.82 (test code = 415) EOSINOPHILS ABSOLUTE COUNT 0.10 K/ L 0.04-0.54 (BEAKER) (test code = 416) BASOPHILS ABSOLUTE COUNT (BEAKER) 0.02 K/ L 0.01-0.08 (test code = 417) IMMATURE GRANULOCYTES-RELATIVE 0 % 0-1 PERCENT (BEAKER) (test code = 2801) POCT-GLUCOSE [id number] 20:37:00 Test Item Value Reference Range Interpretation Comments POC-GLUCOSE METER 283 mg/dL 70-110 H : TESTED A T [facility] 6720 (BEAKER) (test code = [facility], [facility]) [address]: Metal Mold Dresser/Techni lior ID = [id number] for DO VE, CHEKARA POCT-GLUCOSE [id number] 18:31:00 Test Item Value Reference Range Interpretation Comments POC-GLUCOSE METER 189 mg/dL 70-110 H : TESTED A T [facility] 6720 (BEAKER) (test code = [facility], 1538) [address]14[address]: Metal Mold Dresser/Techni lior ID = [id number] for AK INSONU, DENA POCT-GLUCOSE [id number] 18:29:00 Test Item Value Reference Range Interpretation Comments POC-GLUCOSE METER 254 mg/dL 70-110 H : TESTED A T [facility] 6720 (BEAKER) (test code = [facility], 1538) 06383: Metal Mold Dresser/Techni lior ID = [id number] for DENA SILVA POCT-GLUCOSE [id number] 18:25:00 Test Item Value Reference Range Interpretation Comments POC-GLUCOSE METER 313 mg/dL 70-110 H : TESTED A T [facility] 6720 (BEAKER) (test code = [facility], 1538) [address]: Metal Mold Dresser/Techni lior ID = [id number] for DENA SILVA BASIC METABOLIC [id number] 15:32:00 Test Item Value Reference Range Interpretation Comments SODIUM (BEAKER) (test 138 meq/L 136-145 code = 381) POTASSIUM (BEAKER) 3.8 meq/L 3.5-5.1 (test code = 379) CHLORIDE (BEAKER) 108 meq/L 98-107 H (test code = 382) CO2 (BEAKER) (test 24 meq/L 22-29 code = 355) BLOOD UREA NITROGEN 18 mg/dL 7-21 (BEAKER) (test code = 354) CREATININE (BEAKER) 0.89 mg/dL 0.57-1.25 (test code = 358) GLUCOSE RANDOM 226 mg/dL 70-105 H (BEAKER) (test code = 652) CALCIUM (BEAKER) 8.7 mg/dL 8.4-10.2 (test code = 697) EGFR (BEAKER) (test INSUFFIC IENT CLINICAL code = 1092) DATA TO CALCULA TE ESTIMATED GFR. Metal Mold Dresser ID - JORGE [id number] 07:49:00 Test Item Value Reference Range Interpretation Comments RPR SCREEN (BEAKER) (test code = Nonreactive Nonreactive 420) HEPATIC FUNCTION [id number] 07:25:00 Test Item Value Reference Range Interpretation Comments TOTAL PROTEIN (BEAKER) (test code = 6.7 gm/dL 6.0-8.3 770) ALBUMIN (BEAKER) (test code = 1145) 3.7 g/dL 3.5-5.0 BILIRUBIN TOTAL (BEAKER) (test code 0.3 mg/dL 0.2-1.2 = 377) BILIRUBIN DIRECT (BEAKER) (test 0.1 mg/dL 0.1-0.5 code = 706) ALKALINE PHOSPHATASE (BEAKER) (test 111 U/L 40-150 code = 346) AST (SGOT) (BEAKER) (test code = 13 U/L 5-34 353) ALT (SGPT) (BEAKER) (test code = 14 U/L 6-55 347) Metal Mold Dresser KENAN CORCORAN [id number] 07:20:00 Test Item Value Reference Range Interpretation Comments PROCALCITONIN (BEAKER) (test code 0.21 ng/mL <0.05 H = 3036) SEPSIS RISK (ng/mL)Low: 0.05-0.50Intermediate: 0.51-2.00High: >=2.01TSH/FREE T4 IF [id number] 06:44:00 Test Item Value Reference Range Interpretation Comments THYROID STIMULATING HORMONE 0.36 uIU/mL 0.35-4.94 (BEAKER) (test code = 772) Metal Mold Dresser KENAN SEGAL WVITAMIN B12 AND [id number] 06:44:00 Test Item Value Reference Range Interpretation Comments VITAMIN B12 (BEAKER) (test code = 329 pg/mL 213-816 774) FOLATE (BEAKER) (test code = 362) 8.8 ng/mL >=7.0 Metal Mold Dresser KENAN SEGAL WBASIC METABOLIC [id number] 06:12:00 Test Item Value Reference Range Interpretation Comments SODIUM (BEAKER) (test 133 meq/L 136-145 L code = 381) POTASSIUM (BEAKER) 3.9 meq/L 3.5-5.1 (test code = 379) CHLORIDE (BEAKER) 105 meq/L 98-107 (test code = 382) CO2 (BEAKER) (test 20 meq/L 22-29 L code = 355) BLOOD UREA NITROGEN 23 mg/dL 7-21 H (BEAKER) (test code = 354) CREATININE (BEAKER) 1.40 mg/dL 0.57-1.25 H (test code = 358) GLUCOSE RANDOM 402 mg/dL 70-105 HH (BEAKER) (test code = 652) CALCIUM (BEAKER) 8.3 mg/dL 8.4-10.2 L (test code = 697) EGFR (BEAKER) (test INSUFFIC IENT CLINICAL code = 1092) DATA TO CALCULA TE ESTIMATED GFR. Metal Mold Dresser KENAN CORCORAN LCBC W/PLT COUNT & AUTO [id number] 06:10:00 Test Item Value Reference Range Interpretation Comments WHITE BLOOD CELL COUNT (BEAKER) 14.4 K/ L 3.5-10.5 H (test code = 775) RED BLOOD CELL COUNT (BEAKER) 4.04 M/ L 4.63-6.08 L (test code = 761) HEMOGLOBIN (BEAKER) (test code = 11.1 GM/DL 13.7-17.5 L 410) HEMATOCRIT (BEAKER) (test code = 32.8 % 40.1-51.0 L 411) MEAN CORPUSCULAR VOLUME (BEAKER) 81.2 fL 79.0-92.2 (test code = 753) MEAN CORPUSCULAR HEMOGLOBIN 27.5 pg 25.7-32.2 (BEAKER) (test code = 751) MEAN CORPUSCULAR HEMOGLOBIN CONC 33.8 GM/DL 32.3-36.5 (BEAKER) (test code = 752) RED CELL DISTRIBUTION WIDTH 12.5 % 11.6-14.4 (BEAKER) (test code = 412) PLATELET COUNT (BEAKER) (test 255 K/CU MM 150-450 code = 756) MEAN PLATELET VOLUME (BEAKER) 9.0 fL 9.4-12.4 L (test code = 754) NUCLEATED RED BLOOD CELLS 0 /100 WBC 0-0 (BEAKER) (test code = 413) NEUTROPHILS RELATIVE PERCENT 82 % (BEAKER) (test code = 429) LYMPHOCYTES RELATIVE PERCENT 11 % (BEAKER) (test code = 430) MONOCYTES RELATIVE PERCENT 6 % (BEAKER) (test code = 431) EOSINOPHILS RELATIVE PERCENT 0 % (BEAKER) (test code = 432) BASOPHILS RELATIVE PERCENT 0 % (BEAKER) (test code = 437) NEUTROPHILS ABSOLUTE COUNT 11.87 K/ L 1.78-5.38 H (BEAKER) (test code = 670) LYMPHOCYTES ABSOLUTE COUNT 1.55 K/ L 1.32-3.57 (BEAKER) (test code = 414) MONOCYTES ABSOLUTE COUNT (BEAKER) 0.90 K/ L 0.30-0.82 H (test code = 415) EOSINOPHILS ABSOLUTE COUNT 0.03 K/ L 0.04-0.54 L (BEAKER) (test code = 416) BASOPHILS ABSOLUTE COUNT (BEAKER) 0.02 K/ L 0.01-0.08 (test code = 417) IMMATURE GRANULOCYTES-RELATIVE 0 % 0-1 PERCENT (BEAKER) (test code = 2801) [id number] 06:05:00 Test Item Value Reference Range Interpretation Comments MAGNESIUM (BEAKER) (test code = 1.8 mg/dL 1.6-2.6 627) Metal Mold Dresser ID - NILO LC-REACTIVE [id number] 06:05:00 Test Item Value Reference Range Interpretation Comments C-REACTIVE PROTEIN (BEAKER) (test 4.39 mg/dL 0.00-0.50 H code = 676) Metal Mold Dresser ID - PIDEBORAH LLACTIC ACID, [id number] 05:44:00 Test Item Value Reference Range Interpretation Comments LACTATE BLOOD VENOUS (2) (BEAKER) 2.05 mmol/L 0.50-2.20 (test code = 2872) Metal Mold Dresser ID - NILO LPOCT-GLUCOSE [id number] 04:19:00 Test Item Value Reference Range Interpretation Comments POC-GLUCOSE METER 435 mg/dL 70-110 HH : TESTED A T [facility] 6720 (BEAKER) (test code = [facility], 1538) [address]: Metal Mold Dresser/Techni lior ID = [id number] for RA COCHRAN
--- NOTE | 2021-01-09 16:59 | RAD REPORT ---
EXAM DESCRIPTION: RAD - Hand Right 3 View - 01/09/2021 4:53 pm CLINICAL HISTORY: r/o fbpain and swelling distal right third digit COMPARISON: No comparisons FINDINGS: A total of 5 images were obtained including in image with a BB marker attached to the fing er near the site of pain. No fracture is identified. There is no dislocation or periosteal reaction noted. No bone destructive process identifiable. Joints are unremarkable. No air or foreign body in the soft tissues. Third dig it soft tissue swelling is present. IMPRESSION: Right third digit soft tissue swelling with no air or foreign body. No acute bone or joint finding.
--- NOTE | 2021-01-09 17:19 | ER ---
Nurse's Notes [facility] Name: Parminder Smiley Age: 30 yrs Sex: Male : 1990 Arrival Date: 01/09/2021 Time: 13:28 Bed 24 Private MD: Diagnosis: Cellulitis of right upper limb-right middle finger Presentation: 01/09 14:05 Chief complaint: Patient states: R hand 3rd digit pain, swelling to nailbed for 2 days ll1 getting slowly worse. No drainage. Low grade fever yesterday. Coronavirus screen: Client denies travel out of the [place] in the last 14 days. At this time, the client does not indicate any symptoms associated with coronavirus-19. Ebola Screen: Patient denies travel to an Ebola-affected area in the 21 days before illness onset. Initial Sepsis Screen: Does the patient meet any 2 criteria? No. Patient's initial sepsis screen is negative. Does the patient have a suspected source of infection? Yes: Skin breakdown/wound. Risk Assessment: Do you want to hurt yourself or someone else? Patient reports no desire to harm self or others. Onset of symptoms was January 08, 2021. 14:05 Method Of Arrival: Ambulatory ll1 14:05 Acuity: REYMUNDO 3 ll1 Historical: - Allergies: 14:05 No Known Allergies; ll1 - PMHx: 14:05 Diabetes - IDDM; Cellulitis; Hypertension; neuropathy; ll1 - PSHx: 14:05 toe amputation; ll1 - Immunization history:: Client reports receiving the 1st dose of the Covid vaccine, Last tetanus immunization: up to date Flu vaccine is not up to date. - Social history:: Smoking status: Patient denies any tobacco usage or history of. Screenin:09 Abuse screen: Denies threats or abuse. Denies injuries from another. Nutritional ca1 screening: No deficits noted. Tuberculosis screening: No symptoms or risk factors identified. Fall Risk None identified. Assessment: 16:09 General: Appears in no apparent distress. comfortable, Behavior is calm, cooperative, ca1 appropriate for age. Pain: Complains of pain in dorsal aspect of distal phalanx of right middle finger, dorsal aspect of middle phalanx of right middle finger, dorsal aspect of proximal phalanx of right middle finger, palmar aspect of distal phalanx of right middle finger, palmar aspect of middle phalanx of right middle finger, palmar aspect of proximal phalanx of right middle finger and right middle fingernail Pain does not radiate. Pain currently is 5 out of 10 on a pain scale. Pain began 1 day ago. Neuro: Level of Consciousness is awake, alert, obeys commands, Oriented to person, place, time, situation. Derm: Skin is intact, is healthy with good turgor. Musculoskeletal: Circulation, motion, and sensation intact. Capillary refill < 3 seconds, Swelling present in dorsal aspect of distal phalanx of right middle finger, dorsal aspect of middle phalanx of right middle finger, dorsal aspect of proximal phalanx of right middle finger, palmar aspect of distal phalanx of right middle finger, palmar aspect of middle phalanx of right middle finger and palmar aspect of proximal phalanx of right middle finger. 17:00 Reassessment: Patient appears in no apparent distress at this time. Patient and/or ca1 family updated on plan of care and expected duration. Pain level reassessed. Patient is alert, oriented x 3, equal unlabored respirations, skin warm/dry/pink. Vital Signs: 14:05 BP 175 / 108; Pulse 105; Resp 16; Temp 98.4; Pulse Ox 100% ; Weight 83.01 kg; Height 6 ll1 ft. 2 in. (187.96 cm); Pain 5/10; 16:49 BP 161 / 110; Pulse 97; Resp 16 S; Pulse Ox 99% on R/A; ca1 14:05 Body Mass Index 23.50 (83.01 kg, 187.96 cm) ll1 ED Course: 13:28 Patient arrived in ED. as 14:05 Arm band placed on. ll1 14:08 Triage completed. ll1 16:00 Dana Casper FNP-C is PHCP. kb 16:00 Caleb Marrero MD is Attending Physician. kb 16:02 Janel Padilla, ALLYSSA is Primary Nurse. ca1 16:09 Patient has correct armband on for positive identification. Bed in low position. Call ca1 light in reach. Side rails up X 1. Pulse ox on. NIBP on. 16:52 Hand Right 3 View XRAY In Process Unspecified. EDMS 17:40 No provider procedures requiring assistance completed. Patient did not have IV access ca1 during this emergency room visit. Administered Medications: 17:05 Drug: Bactrim (160 mg-800 mg (DS) 1 tablet Route: PO; ca1 17:40 Follow up: Response: No adverse reaction ca1 17:15 Drug: Lidocaine (1 %) 1 vials {Note: by ABY Quinones.} Volume: 5 ml; Route: Infiltration;ca1 Outcome: 17:18 Discharge ordered by MD. calvillo 17:40 Discharged to home via wheelchair. ca1 17:40 Condition: stable 17:40 Discharge instructions given to patient, Instructed on discharge instructions, follow up and referral plans. medication usage, wound care, Demonstrated understanding of instructions, follow-up care, medications, Prescriptions given X 1. 17:41 Patient left the ED. ca1 Signatures: Dispatcher [employer] EDMS Dana Casper, BRAULIO GALLO-Tami Arana as Janel Padilla RN RN ca1 Sheyla Weir RN RN ll1
[2021-01-09] MEDS ORDERED: SMZ./TMP. 800/160 MG TABLET ONE (17:20)
[2021-01-09] MEDS ORDERED: LIDOCAINE 1% MPF 5 ML VIAL ONE (17:20)
--- NOTE | 2021-01-09 17:20 | EDPHYS ---
Physician Documentation [facility] Name: Parminder Smiley Age: 30 yrs Sex: Male : 1990 Arrival Date: 01/09/2021 Time: 13:28 Bed 24 Private MD: ED Physician Caleb Marrero HPI: 01/09 17:56 This 30 yrs old Male presents to ER via Ambulatory with complaints of Finger kb Swelling- infection. 17:57 the patient presents with a swollen area of the right middle finger. kb 17:57 Description: erythematous, swollen, warm. Onset: The symptoms/episode began/occurred 2 kb day(s) ago. Possible cause(s): unknown. Associated signs and symptoms: Pertinent positives: erythema, swelling. Modifying factors: the symptoms are alleviated by nothing, the symptoms are aggravated by nothing. Severity of symptoms: At their worst the symptoms were moderate, in the emergency department the symptoms are unchanged. The patient has experienced similar episodes in the past, a few times. The patient has not recently seen a physician. Pt reports redness and swelling to finger that started 2 days ago and has gotten worse. States he may have gotten a splinter in it the other day. Historical: - Allergies: 14:05 No Known Allergies; ll1 - PMHx: 14:05 Diabetes - IDDM; Cellulitis; Hypertension; neuropathy; ll1 - PSHx: 14:05 toe amputation; ll1 - Immunization history:: Client reports receiving the 1st dose of the Covid vaccine, Last tetanus immunization: up to date Flu vaccine is not up to date. - Social history:: Smoking status: Patient denies any tobacco usage or history of. ROS: 17:51 Constitutional: Negative for fever, chills, and weight loss, Respiratory: Negative for kb shortness of breath, cough, wheezing, and pleuritic chest pain, MS/Extremity: Negative for injury and deformity, Neuro: Negative for headache, weakness, numbness, tingling, and seizure. 17:51 Skin: Positive for erythema, swelling, of the right middle finger. Exam: 17:51 Constitutional: This is a well developed, well nourished patient who is awake, alert, kb and in no acute distress. Head/Face: Normocephalic, atraumatic. Respiratory: Respirations even and unlabored. No increased work of breathing, no retractions or nasal flaring. MS/ Extremity: Pulses equal, no cyanosis. Neurovascular intact. Full, normal range of motion. Neuro: Awake and alert, GCS 15, oriented to person, place, time, and situation. Moves all extremities. Normal gait. 17:51 Skin: cellulitis, that is mild, that is moderate, on the right middle finger. Vital Signs: 14:05 BP 175 / 108; Pulse 105; Resp 16; Temp 98.4; Pulse Ox 100% ; Weight 83.01 kg; Height 6 ll1 ft. 2 in. (187.96 cm); Pain 5/10; 16:49 BP 161 / 110; Pulse 97; Resp 16 S; Pulse Ox 99% on R/A; ca1 14:05 Body Mass Index 23.50 (83.01 kg, 187.96 cm) ll1 MDM: 16:00 Patient medically screened. kb 17:56 Data reviewed: vital signs, nurses notes. Data interpreted: Pulse oximetry: on room air kb is 99 %. Interpretation: normal. Counseling: I had a detailed discussion with the patient and/or guardian regarding: the historical points, exam findings, and any diagnostic results supporting the discharge/admit diagnosis, radiology results, the need for outpatient follow up, a family practitioner, to return to the emergency department if symptoms worsen or persist or if there are any questions or concerns that arise at home. 01/09 16:14 Order name: Hand Right 3 View XRAY; Complete Time: 17:04 kb Administered Medications: 17:05 Drug: Bactrim (160 mg-800 mg (DS) 1 tablet Route: PO; ca1 17:40 Follow up: Response: No adverse reaction ca1 17:15 Drug: Lidocaine (1 %) 1 vials {Note: by ABY Quinones.} Volume: 5 ml; Route: Infiltration;ca1 Disposition: 19:06 Co-signature as Attending Physician, Caleb Marrero MD. rn Disposition: 01/09/21 17:18 Discharged to Home. Impression: Cellulitis of right upper limb - right middle finger. - Condition is Stable. - Discharge Instructions: Cellulitis, Adult, Tuye-[id number]. - Prescriptions for Bactrim DS 800- 160 mg Oral Tablet - take 1 tablet by ORAL route every 12 hours for 10 days; 20 tablet. - Medication Reconciliation Form, Thank You Letter, Antibiotic Education, Prescription Opioid Use form. - Follow up: Emergency Department; When: As needed; Reason: Worsening of condition. Follow up: Private Physician; When: 2 - 3 days; Reason: Recheck today's complaints, Continuance of care, Re-evaluation by your physician. Signatures: Dispatcher [employer] EDDC TremayneFrankDana, BULLARD MACHINE OPERATOR-C BULLARD MACHINE OPERATOR-Ckb Caleb Marrero MD MD rn Acob, Janel RN RN ca1 Sheyla Weir RN RN ll1 Corrections: (The following items were deleted from the chart) 17:41 17:18 01/09/2021 17:18 Discharged to Home. Impression: Cellulitis of right upper limb - ca1 right middle finger. Condition is Stable. Forms are Medication Reconciliation Form, Thank You Letter, Antibiotic Education, Prescription Opioid Use. Follow up: Emergency Department; When: As needed; Reason: Worsening of condition. Follow up: Private Physician; When: 2 - 3 days; Reason: Recheck today's complaints, Continuance of care, Re-evaluation by your physician. kb
[2021-01-09 18:00] VITALS: TEMP 98.4
[2021-01-09 18:02] VITALS: BP 161/110; O2SAT 99
== END 2021-01-09 17:41 | disposition home or self-care (01) ==
LOC: ER 13:25
DX: L03.011 Cellulitis of right finger (principal); I10 Essential (primary) hypertension
CPT/HCPCS: 99284

== ENCOUNTER 2021-03-23 22:59 | Emergency (ER) | payer BC ==
--- OUTSIDE RECORDS SUMMARY | 2021-03-23 23:07 | XMS REPORT | Continuity of Care Document ---
:1990 Author Organization [facility] t Address [address] [place] [address] Care Team Providers Name Role Phone Loretta Arguelles Primary Care Physician Rafael Elkins Attending Clinician TRAVIS Attending Clinician Unavailable NAM, AYESHA Admitting [...] 4-04 [facility] Lumbar Problem Active 2021-03-23 Memor ia spondylosi 01:32:49 l s Lumbar Moses (disorder) spondylosi s (disorder) Active Problem 03/23/2021 [facility] Polyneurop Problem Active 2021-03-23 M emoria athy 01:32:49 l (disorder) Baudilio n Polyneurop athy (disorder) Active Problem 03/23/2021 [facility] Recurrent Problem Active 2021-03-23 Me moria falls 01:32:49 l (finding) Moses Recurrent falls (finding) Active Problem 03/23/2021 [facility] Diabetes Problem Active 2021-03-23 Mem oria mellitus 01:32:49 l type 1 Diabetes Baudilio n (disorder) mellitus type 1 (disorder) Active Problem 03/23/2021 [facility] Paresthesi Problem Resolve 2021-03-23 Memoria a of foot d 01:32:49 l (finding) Sterling Paresthesi a of foot (finding) Resolved Problem 03/23/2021 [facility] Amputated Problem Active 2021-03-23 Me moria toe 01:32:49 l (finding) Moses Amputated toe (finding) Active Problem 03/23/2021 [facility] Cervical Problem Active 2021-03-23 Mem oria spondylosi 01:32:49 l s Cervical Baudilio n (disorder) spondylosi s (disorder) Active Problem 03/23/2021 [facility] Foot-drop Problem Active 2021-03-23 Me moria (finding) 01:32:49 l Moses Foot-drop (finding) Active Problem 03/23/2021 [facility] Allergies, Adverse Reactions, Alerts This patient has no known allergies or adverse reactions. Social History Social Habit Start Date Stop Date Quantity Comments Source History [facility] Std Drinks Medica l Center History [facility] Binge Medical Jania ter Sex Assigned At [facility] Social History 2021-03-20 2021-03-20 [facility] 20:18:04 20:18:04 Tobacco use and 2019-12-24 2019-12-24 Never used [facility] kes - exposure 00:00:00 00:00:00 [facility] Alcohol intake 2019-12-24 2019-12-24 [facility] non-drinker of Medical Ce nter alcohol (finding) History [facility] 2019-12-24 2019-12-[address] [facility] - Alcohol Frequency 00:00:00 00:00:00 [facility] Smoking Status Start Date Stop Date Source Never smoker [facility] Medications Ordered Filled Start Stop Current Ordering Indication Dosage Frequency Signature Comments Components Source Medication Medication Date Date Medication? Clinician (SIG) Name Name Humalog Yes SUB-Q, 0 Memori a 6-30 Refill(s) l 20:26: Sterling 00 Levemir 2021-0 Yes SUB-Q, 0 Memori a 6-30 Refill(s) l 20:26: Moses 00 Acetaminoph Yes 0 Memori a en 300 MG / 6-30 Refill(s) l Codeine 20:22: Moses Phosphate 00 60 MG Oral Tablet methocarbam Yes 0 Memori a ol 750 mg 6-30 Refill(s) l oral tablet 20:22: Baudilio n 00 gabapentin Yes See Memoria 600 MG Oral 6-30 Instructio l Tablet 20:21: ns, 3 po Sterling 00 bid, 0 Refill(s) gabapentin 2019-0 Yes 1800mg Q.5D Take 1,[address] (NEURONTIN) 4-06 mg by [facility] - 600 MG 13:09: mouth 2 Medical tablet 24 (two) Center times daily . insulin 2019-0 Yes type [address] lispro 4-06 diabetes subcutaneo Tien es - (HUMALOG) 13:09: mellitus usly 3 Me dical 100 unit/mL 24 (three) Cente r injection times daily before meals Pt takes 10 units at breakfast, 11 units at lunch, and 12 units at dinner . lisinopriL 2019-0 Yes 20mg QD Take [address] (PRINIVIL,Z 4-06 by mouth Luke s - ESTRIL) 20 13:09: daily. Medic al MG tablet 24 Center acetaminoph 2019-0 Yes pain 1{tbl} Take [address] en-codeine 4-06 tablet by Luke s - (TYLENOL 13:09: mouth Medical #4) 300-60 24 every 8 Center mg per (eight) tablet hours as needed for Pain. methocarbam 2019-0 Yes 750mg Q.5D Take [address] oL 4-06 mg by [facility] - (ROBAXIN) 13:09: mouth 2 Medic al 750 MG 24 (two) Center tablet times daily. insulin 2019-0 Yes 25U QD Inject 25 [facility] detemir 4-06 Units [facility] - U-100 00:00: subcutaneo Medica l (LEVEMIR) 00 usly Center 100 unit/mL nightly. injection Vital Signs Vital Name Observation Time Observation Value Comments Source Systolic (mm Hg) 2021-03-20 20:11:00 Bill rial Moses Diastolic (mm Hg) 2021-03-20 20:11:00 Kael Fletcherann Heart Rate 2021-03-20 20:11:00 Mei Lopes Respitory Rate 2021-03-20 20:11:00 Kaeladilene jason Moses Height 2021-03-20 20:11:00 187.96 cm Mei Fletcherann Weight 2021-03-20 20:11:00 Mei Fletcherann BMI Calculated 2021-03-20 20:11:00 Briseyda Murray Procedures Procedure Date / Time Performed Performing Clinician [facility] e Amputation of toe Mei Munoz nn Plan of Care Planned Activity Planned Date Details Comments Source Future Scheduled 2021-05-[address] [facility] - Test 00:00:00 (Season Ended) [code = Medic al Center INFLUENZA VACCINE (Season Ended)] Future Scheduled 2020-09-[address] [facility] - Test 00:00:00 (12+) [code = Medical Center DEPRESSION SCREENING (12+)] Future Scheduled 2020-03-[address] [facility] - Test 00:00:00 measurement Medical Center (procedure) [code = 60988670] Future Scheduled [address] [facility] 00:00:00 (procedure) [code = Medical Center 41871945] Future Scheduled 2008 DTAP/TDAP/TD VACCINES [facility] 00:[facility]:00 (1 - Tdap) [code = Medical C enter DTAP/TDAP/TD VACCINES (1 - Tdap)] Future Scheduled 2007 HEPATITIS C SCREENING [facility] 00:00:00 [code = HEPATITIS C Medical Center SCREENING] Future Scheduled 2001 COVID-19 VACCINE (1) [facility] Test 00:00:00 [code = COVID-[address] VACCINE (1)] Future Scheduled 1999 DIABETIC EYE EXAM [facility] 00:00:00 [code = DIABETIC EYE Medical Center EXAM] Future Scheduled [address] [facility] - Test 00:00:00 examination Medical Center (regime/therapy) [code = 531751596] Future Scheduled 1999 Urine screening for [facility] Test 00:00:00 protein (procedure) Medical Center [code = 392443970] Future Scheduled [address] [facility] - Test 00:00:00 0-64 YRS (1 of 1 - Medical C enter PPSV23) [code = PNEUMOCOCCAL VACCINE 0-64 YRS (1 of 1 - PPSV23)] Encounters Start End Encounter Admission Attending Care Care Encounter Source Date/Time Date/Time Type Type Clinicians Facility Department ID 2021-03-20 2021-03-[address] [facility] [id number] 15:00:00 23:59:59 Rj 00 Rafael Results Test Description Test Time Test Comments Results Result Comments Source BLOOD CULTURE 2019-12-29 07:00:00 Test Item Value Reference Range Interpretation Comme nts CULTURE (BEAKER) (test code = 1095) No growth in 5 days BLOOD [id number] 07:00:00 Test Item Value Reference Range Interpretation Comments CULTURE (BEAKER) (test No growth in 5 days code = 1095) POCT-GLUCOSE [id number] 11:56:00 Test Item Value Reference Range Interpretation Comments POC-GLUCOSE METER 260 mg/dL 70-110 H : TESTED A T [facility] 6720 (BEAKER) (test code [facility], = 1538) 80311: Extruder Tender/Techni lior ID = [id number] for KATLIN JUDD POCT-GLUCOSE [id number] 08:42:00 Test Item Value Reference Range Interpretation Comments POC-GLUCOSE METER 230 mg/dL 70-110 H : TESTED A T [facility] 6720 (BEAKER) (test code = JASON Lee [facility], 1538) 34305: Extruder Tender/Techni lior ID = [id number] for YURI ROSARIO BASIC METABOLIC [id number] 04:48:00 Test Item Value Reference Range Interpretation [...] 1092) DATA TO CALCULA TE ESTIMATED GFR. Extruder Tender ID - LUZMA [id number] 04:40:00 Test Item Value Reference Range Interpretation Comments MAGNESIUM (BEAKER) (test code = 2.1 mg/dL 1.6-2.6 627) Extruder Tender ID - LUZMA WCBC W/PLT COUNT & AUTO [id number] 04:23:00 Test Item Value Reference Range Interpretation [...] (test code = 2801) MR, SPINE, CERVICAL, [id number] 01:07:00FINAL REPORT MRI Brain with and without [...] Rogerio Pruitt MDReport Verified Date/Time: 12/26/2019 01:07:39 MR, BRAIN, [id number] 01:07:00FINAL REPORT MRI Brain with and without [...] H : TESTED A T [facility] 6720 (ArchiveSocial) (test code = [facility], 1538) 13051: Extruder Tender/Techni lior ID = [id number] for DO VE, CHEKARA POCT-GLUCOSE [id number] 17:01:00 Test Item Value Reference Range Interpretation Comments POC-GLUCOSE METER 183 mg/dL 70-110 H : TESTED A T [facility] 6720 (ArchiveSocial) (test code = [facility], 1538) 49490: Extruder Tender/Techni lior ID = [id number] for AN DERALCON SEXTONTERA T4, [id number] 14:20:00 Test Item Value Reference Range Interpretation Comments FREE T4 (BEAKER) (test code = 655) 0.99 ng/dL 0.70-1.48 Extruder Tender ID Jose ROGER FTSH/FREE T4 IF [id number] 13:43:00 Test Item Value Reference Range Interpretation Comments THYROID STIMULATING HORMONE 0.35 uIU/mL 0.35-4.94 (BEAKER) (test code = 772) Extruder Tender ID Jose ROGER FCREATINE KINASE (CK)2019-12-25 13:21:00 Test Item Value Reference Range Interpretation Comments CREATINE KINASE TOTAL (BEAKER) (test 105 U/L 29-200 code = 380) Extruder Tender ID - ROGER FPOCT-GLUCOSE [id number] 12:59:00 Test Item Value Reference Range Interpretation Comments POC-GLUCOSE METER 261 mg/dL 70-110 H : TESTED A T [facility] 6720 (BEAKER) (test code = [facility], 1538) 21284: Extruder Tender/Techni lior ID = [id number] for Mitzi Woodruff HEMOGLOBIN [id number] 08:42:00 Test Item Value Reference Range Interpretation Comments HEMOGLOBIN A1C (BEAKER) (test code = 13.2 % 4.3-6.1 H 368) POCT-GLUCOSE [id number] 07:47:00 Test Item Value Reference Range Interpretation Comments POC-GLUCOSE METER 266 mg/dL 70-110 H : TESTED A T [facility] 6720 (BEAKER) (test code = [facility], 1538) 62976: Extruder Tender/Techni lior ID = [id number] for JAMIE ARMAS BASIC METABOLIC [id number] 06:40:00 Test Item Value Reference Range Interpretation [...] 1092) DATA TO CALCULA TE ESTIMATED GFR. Extruder Tender KENAN CORCORAN [id number] 06:33:00 Test Item Value Reference Range Interpretation Comments MAGNESIUM (BEAKER) (test code = 2.0 mg/dL 1.6-2.6 627) Extruder Tender KENAN CORCORAN LHIV-1 ANTIGEN WITH HIV-1/2 [id number] 06:32:00 Test Item Value Reference Range Interpretation Comments HIV-1 ANTIGEN WITH HIV 1\T\2 Nonreactive Nonreactive ANTIBODY (2) (BEAKER) (test code = 2586) Extruder Tender KENAN CORCORAN LCBC W/PLT COUNT & AUTO [id number] 05:58:00 Test Item Value Reference Range Interpretation [...] PERCENT (BEAKER) (test code = 2801) POCT-GLUCOSE [id number] 20:37:00 Test Item Value Reference Range Interpretation Comments POC-GLUCOSE METER 283 mg/dL 70-110 H : TESTED A T [facility] 6720 (BEAKER) (test code = [facility], 1538) 60894: Extruder Tender/Techni lior ID = [id number] for DO VE, CHEKARA POCT-GLUCOSE [id number] 18:31:00 Test Item Value Reference Range Interpretation Comments POC-GLUCOSE METER 189 mg/dL 70-110 H : TESTED A T [facility] 6720 (BEAKER) (test code = [facility], 1538) 96716: Extruder Tender/Techni lior ID = [id number] for AK INSONU, DENA POCT-GLUCOSE [id number] 18:29:00 Test Item Value Reference Range Interpretation Comments POC-GLUCOSE METER 254 mg/dL 70-110 H : TESTED A T [facility] 6720 (BEAKER) (test code = [facility], 1538) 08556: Extruder Tender/Techni lior ID = [id number] for AK INSONU, DENA POCT-GLUCOSE [id number] 18:25:00 Test Item Value Reference Range Interpretation Comments POC-GLUCOSE METER 313 mg/dL 70-110 H : TESTED A T [facility] 6720 (BEAKER) (test code = [place], 1538) 75431: Extruder Tender/Techni lior ID = [id number] for DENA SILVA BASIC METABOLIC [id number] 15:32:00 Test Item Value Reference Range Interpretation [...] 1092) DATA TO CALCULA TE ESTIMATED GFR. Extruder Tender ID - JORGE [id number] 07:49:00 Test Item Value Reference Range Interpretation Comments RPR SCREEN (BEAKER) (test code = Nonreactive Nonreactive 420) HEPATIC FUNCTION [id number] 07:25:00 Test Item Value Reference Range Interpretation [...] (test code = 14 U/L 6-55 347) Extruder Tender ID - NILO [id number] 07:20:00 Test Item Value Reference Range Interpretation Comments PROCALCITONIN (BEAKER) (test code 0.21 ng/mL <0.05 H = 3036) SEPSIS RISK (ng/mL)Low: 0.05-0.50Intermediate: 0.51-2.00High: >=2.01TSH/FREE T4 IF [id number] 06:44:00 Test Item Value Reference Range Interpretation Comments THYROID STIMULATING HORMONE 0.36 uIU/mL 0.35-4.94 (BEAKER) (test code = 772) Extruder Tender ID - LUZMA WVITAMIN B12 AND [id number] 06:44:00 Test Item Value Reference Range Interpretation Comments VITAMIN B12 (BEAKER) (test code = 329 pg/mL 213-816 774) FOLATE (BEAKER) (test code = 362) 8.8 ng/mL >=7.0 Extruder Tender ID - LUZMA WBASIC METABOLIC [id number] 06:12:00 Test Item Value Reference Range Interpretation [...] 1092) DATA TO CALCULA TE ESTIMATED GFR. Extruder Tender ID Jose CORCORAN LCBC W/PLT COUNT & AUTO [id number] 06:10:00 Test Item Value Reference Range Interpretation [...] 0-1 PERCENT (BEAKER) (test code = 2801) [id number] 06:05:00 Test Item Value Reference Range Interpretation Comments MAGNESIUM (BEAKER) (test code = 1.8 mg/dL 1.6-2.6 627) Extruder Tender ID - PIAYA LC-REACTIVE [id number] 06:05:00 Test Item Value Reference Range Interpretation Comments C-REACTIVE PROTEIN (BEAKER) (test 4.39 mg/dL 0.00-0.50 H code = 676) Extruder Tender ID - PIAYA LLACTIC ACID, [id number] 05:44:00 Test Item Value Reference Range Interpretation Comments LACTATE BLOOD VENOUS (2) (BEAKER) 2.05 mmol/L 0.50-2.20 (test code = 2872) Extruder Tender ID - PIAYA LPOCT-GLUCOSE [id number] 04:19:00 Test Item Value Reference Range Interpretation Comments POC-GLUCOSE METER 435 mg/dL 70-110 HH : TESTED A T [facility] 6720 (BEAKER) (test code = [place], 1538) 13491: Extruder Tender/Techni lior ID = [id number] for RA COCHRAN
[2021-03-23] MEDS ORDERED: ONDANSETRON 4 MG/2 ML VIAL ONE (23:53)
[2021-03-23] MEDS ORDERED: MORPHINE 4 MG/ML SYR ONE (23:53)
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
[2021-03-24] MEDS ORDERED: CYCLOBENZAPRINE 10 MG TAB ONE (01:07)
[2021-03-24] MEDS ORDERED: KETOROLAC 30 MG/ML INJ ONE (01:07)
[2021-03-24 01:19] VITALS: TEMP 98.5; O2SAT 100
[2021-03-24 01:20] VITALS: BP 164/87
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
== END 2021-03-24 01:11 | disposition home or self-care (01) ==
LOC: ER 22:59
DX: S02.2XXA Fracture of nasal bones, initial encounter for closed fracture (principal); V59.40XA Driver of pick-up truck or van injured in collision with unspecified motor vehicles in traffic accident, initial encounter
CPT/HCPCS: 70450; 72125; 70486; 76377; 96375; 96374; 99284; J2405

== ENCOUNTER 2021-05-13 09:54 | Day surgery (SDC) | payer BC ==
[2021-05-13 10:42] VITALS: BMI 25.4
[2021-05-13 10:43] LABS: MPV 6.6 fL (7.6-11.3)
[2021-05-13 10:46] LABS: Protime INR 0.89
[2021-05-13] MEDS ORDERED: HYDROCODONE/APAP 7.5/325 MG TAB ONE (12:48)
[2021-05-13 13:31] LABS: CSF Glucose 161 mg/dL (40-70)
[2021-05-13] MEDS ORDERED: HYDRALAZINE HCL 10 MG TABLET PO ONE (14:00)
[2021-05-13 14:08] VITALS: O2SAT 99
[2021-05-13 14:35] VITALS: BP 189/112; TEMP 98
[2021-05-13 15:36] LABS: Appearance CLEAR (CLEAR); Body Fluid Source CSF; Color of fluid Colorless (COLORLESS); Fluid Total Volume 9 ml
[2021-05-13 15:37] LABS: Body Fluid WBC 1 /mm^3
--- NOTE | 2021-05-14 13:17 | RAD REPORT ---
EXAM DESCRIPTION: RAD - Lumbar Puncture For Dx - 05/13/2021 12:58 pm CLINICAL HISTORY: Neuropathy COMPARISON: None. TECHNIQUE: The procedure, risks and alternatives to the procedure were discussed with the patient in detail. After answering all questions, both oral and written consent were obtained. Time-out procedu re was performed. The patient was placed in an oblique prone position on the fluoroscopic table. The skin of the lower back was prepped and draped in the usual sterile fashion. After anesthetizing the skin and deeper sof t tissues with 1% lidocaine, a 22 gauge needle was advanced into the thecal sac at the L2-3 level. At the conclusion of the procedure the needle was withdrawn and a sterile bandage placed over the pun cture site. The patient tolerated the procedure well without immediate complications. Post-procedure care and precaution instructions were discussed with the patient before the LP procedure. IMPRESSION: Successful fluoroscopic guided lumbar puncture. All obtained fluid was sent to the lab f or studies requested by the referring physician.
== END 2021-05-13 15:30 | disposition home or self-care (01) ==
LOC: RAD 09:54 → EDSTATUS 11:00 → RAD 15:30
PROVIDERS: ATTEND Specialist
PROC: 009U3ZX Drainage of Spinal Canal, Percutaneous Approach, Diagnostic (ICD-10-PCS; principal; 2021-05-13)
DX: G62.9 Polyneuropathy, unspecified (principal); M21.371 Foot drop, right foot; R29.6 Repeated falls
CPT/HCPCS: 36415; 77003; 82945; 84157; 85049; 85610; 85730; 87070; 88108; 89050

== ENCOUNTER 2021-07-20 12:42 | Emergency (ER) | payer BC ==
[2021-07-20 13:31] LABS: Absolute Lymphocytes (CBC) 1.1 K/uL (0.7-4.9); Basophils % 0.5 % (0-1.3); Lymphocytes % 19.3 % (15.3-44.8); MPV 6.5 fL (7.6-11.3); RBC Red Blood Cell Count 3.52 M/uL (4.33-5.43)
[2021-07-20 13:35] LABS: Protime INR 1.04
[2021-07-20 13:51] LABS: ALT/SGPT 15 U/L (12-78); AST/SGOT 18 U/L (15-37); Albumin 2.9 g/dL (3.4-5.0); Alkaline Phosphatase 65 U/L (45-117); BUN Blood Urea Nitrogen 13 mg/dL (7-18); Bicarbonate 30 mmol/L (21-32); Bilirubin Direct < 0.1 mg/dL (0-0.2); Bilirubin Total 0.2 mg/dL (0.2-1.0); Glucose Level 172 mg/dL (74-106); Magnesium 2.2 mg/dL (1.8-2.4); NT PRO-BNP 577 pg/mL (<125); Potassium 4.9 mmol/L (3.5-5.1); Protein, Total 7.5 g/dL (6.4-8.2); Sodium Level 139 mmol/L (136-145); Troponin (Emerg Dept Use Only) < 0.02 ng/mL (0.0-0.045)
[2021-07-20] MEDS ORDERED: HYDRALAZINE HCL 20 MG/ML VIAL ONE (14:26)
--- NOTE | 2021-07-20 16:00 | EDPHYS ---
Physician Documentation [facility] Name: Parminder Smiley Age: 31 yrs Sex: Male : 1990 Arrival Date: 07/20/2021 Time: 12:43 Bed 13 Private MD: Kristy Arguelles H ED Physician Curt Turcios HPI: 07/20 13:02 This 31 yrs old Male presents to ER via Wheelchair with complaints of High jmm Blood Pressure. 13:02 This is a 31-year-old male with a history of cellulitis, insulin-dependent diabetes jmm mellitus, hypertension, neuropathy that presents to the emergency department with elevated blood pressure. Patient states he is had some ongoing elevated blood pressure over the past few weeks. Complains of a little dizziness, denies chest pain or shortness of breath. Patient was advised to go to the ER due to elevated blood pressure while receiving an infusion of IVIG.. 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 - Social history:: Smoking status: Patient denies any tobacco usage or history of. ROS: 13:02 Constitutional: Negative for fever, chills, and weight loss, Cardiovascular: Negative jmm for chest pain, palpitations, and edema, Respiratory: Negative for shortness of breath, cough, wheezing, and pleuritic chest pain, Abdomen/GI: Negative for abdominal pain, nausea, vomiting, diarrhea, and constipation. 13:02 Neuro: Positive for dizziness. 13:02 All other systems are negative. Exam: 13:02 Constitutional: This is a well developed, well nourished patient who is awake, alert, jmm and in no acute distress. Head/Face: atraumatic. Eyes: EOMI, no conjunctival erythema appreciated ENT: Moist Mucus Membranes Neck: Trachea midline, Supple Chest/axilla: Normal chest wall appearance and motion. Cardiovascular: Regular rate and rhythm. No edema appreciated Respiratory: Normal respirations, no respiratory distress appreciated Abdomen/GI: Non distended, soft Back: Normal ROM Skin: General appearance color normal 13:02 Musculoskeletal/extremity: ROM: intact in all extremities. 13:02 Skin: Appearance: Color: normal in color. 13:02 Neuro: Orientation: is normal, Mentation: is normal, Memory: is normal. 13:02 Psych: Behavior/mood is pleasant, cooperative. Vital Signs: 12:48 BP 196 / 112; Pulse 90; Resp 18 S; Temp 97.6(TE); Pulse Ox 100% on R/A; Weight 92.99 kg aa5 (R); Height 6 ft. 2 in. (187.96 cm) (R); 13:51 BP 182 / 107; Pulse 94; Resp 17; Pulse Ox 100% on R/A; jt3 14:19 BP 168 / 93; Pulse 96; jt3 15:08 BP 169 / 91; Pulse 100; jt3 16:19 BP 181 / 100; Pulse 96; Resp 17; Pulse Ox 100% on R/A; jt3 12:48 Body Mass Index 26.32 (92.99 kg, 187.96 cm) aa5 MDM: 13:02 Patient medically screened. [facility] 15:58 Data reviewed: vital signs, nurses notes. Counseling: I had a detailed discussion with [facility] the patient and/or guardian regarding: the historical points, exam findings, and any diagnostic results supporting the discharge/admit diagnosis, lab results, the need for outpatient follow up, to return to the emergency department if symptoms worsen or persist or if there are any questions or concerns that arise at home. 16:45 ED course: Patient is alert and nontoxic in appearance. Patient states he does feel [facility] better. I discussed lab findings with the patient along with the concerns for anemia. Patient denied any dark stools, vomiting blood, coffee ground emesis. Patient was unaware of history of anemia. Patient was advised to follow-up with his PCP for further evaluation and otherwise given strict return precautions if his blood pressure become symptomatic. Patient understood and agrees plan of care. 07/20 13:03 Order name: Basic Metabolic Panel [facility] 07/20 13:03 Order name: CBC with Diff [facility] 07/20 13: Order name: LFT's; Complete Time: 14:11 [facility] 07/20 13:03 Order name: Magnesium; Complete Time: 14:11 [facility] 07/20 13:03 Order name: NT PRO-BNP; Complete Time: 14:11 [facility] 07/20 13:03 Order name: PT-INR; Complete Time: 13:39 [facility] 07/20 13:03 Order name: Troponin (emerg Dept Use Only); Complete Time: 14:11 [facility] 07/20 13:03 Order name: EKG; Complete Time: 13:03 [facility] 07/20 13:03 Order name: IV Saline Lock; Complete Time: 13:24 [facility] 07/20 13:03 Order name: Basic Metabolic Panel; Complete Time: 14:11 [facility] 07/20 13:03 Order name: CBC with Automated Diff; Complete Time: 13:39 [facility] 07/20 13:03 Order name: Labs collected and sent; Complete Time: 13:24 [facility] 07/20 13:03 Order name: O2 Per Protocol; Complete Time: 13:24 [facility] 07/20 13:03 Order name: O2 Sat Monitoring; Complete Time: 13:24 [facility] Administered Medications: 13:39 Drug: hydrALAZINE 10 mg Route: IVP; Site: right antecubital; jt3 16:03 Follow up: Response: No adverse reaction jt3 Disposition Summary: 07/20/21 15:59 Discharge Ordered Location: Home [facility] Condition: Stable [facility] Diagnosis - Anemia, unspecified jm - Elevated Blood Pressure [facility] Followup: [facility] - With: Kristy Arguelles DO - When: 2 - 3 days - Reason: Recheck today's complaints, Continuance of care, Re-evaluation by your physician Discharge Instructions: - Discharge Summary Sheet jm - Anemia [facility] Forms: - Medication Reconciliation Form [facility] - Thank You Letter [facility] - Antibiotic Education [facility] - Prescription Opioid Use [facility] Prescriptions: - Norvasc 5 mg Oral Tablet - take 1 tablet by ORAL route once daily; 20 tablet; Refills: 0, Product [facility] Selection Permitted Addendum: 07/22/2021 23:06 Co-signature as Attending Physician, Curt Turcios MD PA/PRINCIPAL BIOINFORMATICS SPECIALIST's history reviewed, m a2 patient interviewed, and examined. I agree with assessment and care plan and confirm the diagnosis (es) above. Signatures: Dispatcher [employer] EDRonn Rod PA PA jmm Calderon, Audri, RN RN aa5 Curt uTrcios MD MD ma2 Demetrius Loving RN RN jt3 Corrections: (The following items were deleted from the chart) 07/20 12:55 12:48 PMHx: CIDP; aa5 aa5
--- NOTE | 2021-07-20 16:00 | ER ---
Nurse's Notes [facility] Name: Parminder Smiley Age: 31 yrs Sex: Male : 1990 Arrival Date: 07/20/2021 Time: 12:43 Bed 13 Private MD: Kristy Arguelles H Diagnosis: Anemia, unspecified;Elevated Blood Pressure Presentation: 07/20 12:48 Chief complaint: Patient states: "today is my second day of getting IV infusions for aa5 CIDP (Immune Globulin/Panzyga) and the nurse sent me here because my blood pressure was 200/108". Pt reports slight dizziness, denies N/V, denies dizziness. Coronavirus screen: At this time, the client does not indicate any symptoms associated with coronavirus-19. Ebola Screen: No symptoms or risks identified at this time. Initial Sepsis Screen: Does the patient meet any 2 criteria? No. Patient's initial sepsis screen is negative. Does the patient have a suspected source of infection? No. Patient's initial sepsis screen is negative. Risk Assessment: Do you want to hurt yourself or someone else? Patient reports no desire to harm self or others. Onset of symptoms was July 20, 2021. 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 - Social history:: Smoking status: Patient denies any tobacco usage or history of. Screenin:59 Abuse screen: Denies threats or abuse. Denies injuries from another. Nutritional jt3 screening: No deficits noted. Tuberculosis screening: No symptoms or risk factors identified. 12:59 Fall Risk None identified. jt3 Assessment: 12:59 General: Appears in no apparent distress. Pain: Complains of pain in face Pain does not jt3 radiate. Pain currently is 6 out of 10 on a pain scale. Quality of pain is described as throbbing, Pain began 1 hour ago. Cardiovascular: Reports Pt. reports headache and having high blood pressure after a IGIV infusion at home by a home health nurse. 16:20 Reassessment: Patient's headache improved after blood pressure was lowered with jt3 medications. . Vital Signs: 12:48 BP 196 / 112; Pulse 90; Resp 18 S; Temp 97.6(TE); Pulse Ox 100% on R/A; Weight 92.99 kg aa5 (R); Height 6 ft. 2 in. (187.96 cm) (R); 13:51 BP 182 / 107; Pulse 94; Resp 17; Pulse Ox 100% on R/A; jt3 14:19 BP 168 / 93; Pulse 96; jt3 15:08 BP 169 / 91; Pulse 100; jt3 16:19 BP 181 / 100; Pulse 96; Resp 17; Pulse Ox 100% on R/A; jt3 12:48 Body Mass Index 26.32 (92.99 kg, 187.96 cm) aa5 ED Course: 12:43 Patient arrived in ED. as 12:43 Kristy Arguelles DO is Private Physician. as 12:44 Ronn Drake PA is PHCP. jmm 12:44 Curt Turcios MD is Attending Physician. jmm 12:48 Arm band placed on. aa5 12:51 Triage completed. aa5 12:59 Demetrius Loving, RN is Primary Nurse. jt3 12:59 Patient has correct armband on for positive identification. Bed in low position. Call jt3 light in reach. Side rails up X2. 12:59 No provider procedures requiring assistance completed. jt3 13:23 Inserted saline lock: 20 gauge in right antecubital area, using aseptic technique. dh4 Blood collected. 13:51 Inserted. jt3 15:58 Kristy Arguelles DO is Referral Physician. jmm 16:20 IV discontinued, intact, bleeding controlled, No redness/swelling at site. Pressure jt3 dressing applied. Administered Medications: 13:39 Drug: hydrALAZINE 10 mg Route: IVP; Site: right antecubital; jt3 16:03 Follow up: Response: No adverse reaction jt3 Outcome: 15:59 Discharge ordered by . jmm 16:19 Discharged to home via wheelchair. jt3 16:19 Condition: improved 16:19 Discharge instructions given to patient. 16:21 Patient left the ED. jt3 Signatures: Ronn Drake PA PA jmm Martinez, Amelia as Calderon, Audri, RN RN aa5 Etienne Stewart 4 Demetrius Loving RN RN jt3 Corrections: (The following items were deleted from the chart) 12:55 12:48 PMHx: CIDP; aa5 aa5
[2021-07-20 16:25] VITALS: TEMP 97.6; O2SAT 100
[2021-07-20 16:30] VITALS: BP 181/100
== END 2021-07-20 16:21 | disposition home or self-care (01) ==
LOC: ER 12:42
DX: D64.9 Anemia, unspecified (principal); I10 Essential (primary) hypertension; E11.9 Type 2 diabetes mellitus without complications
CPT/HCPCS: 93005; 85025; 80048; 36415; 83735; 85610; 80076; 84484; 83880; 96374; 99284; J0360

== ENCOUNTER 2021-08-31 19:04 | Emergency (ER) | payer BC ==
--- OUTSIDE RECORDS SUMMARY | 2021-08-31 19:07 | XMS REPORT | Continuity of Care Document ---
:1990 Author Organization [facility] t Address [address] [place] [address] Dr. Begum [address] [place] [id number] Care Team Providers Name Role Phone Unavailable Unavailable Unavailable Problems This patient has no known problems. Allergies, Adverse Reactions, Alerts This patient has no known allergies or adverse reactions. Medications This patient has no known medications. Procedures This patient has no known procedures. Results This patient has no known results.
[2021-08-31] MEDS ORDERED: NA CHLORIDE 0.9% 500 ML ONE (19:46)
[2021-08-31 19:49] LABS: Absolute Lymphocytes (CBC) 1.4 K/uL (0.7-4.9); Basophils % 0.4 % (0-1.3); Hematocrit 31.4 % (39.6-49.0); Lymphocytes % 15.8 % (15.3-44.8); MPV 7.2 fL (7.6-11.3); RBC Red Blood Cell Count 3.82 M/uL (4.33-5.43)
[2021-08-31 19:52] LABS: Protime INR 0.93
[2021-08-31] MEDS ORDERED: ONDANSETRON 4 MG/2 ML VIAL ONE (19:55)
[2021-08-31] MEDS ORDERED: HYDRALAZINE HCL 20 MG/ML VIAL ONE (19:55)
[2021-08-31] MEDS ORDERED: MORPHINE 2 MG/ML SYR ONE (19:55)
[2021-08-31 20:14] LABS: ALT/SGPT 17 U/L (12-78); AST/SGOT 18 U/L (15-37); Albumin 3.3 g/dL (3.4-5.0); Alkaline Phosphatase 101 U/L (45-117); BUN Blood Urea Nitrogen 15 mg/dL (7-18); Bicarbonate 28 mmol/L (21-32); Bilirubin Direct < 0.1 mg/dL (0-0.2); Bilirubin Total 0.3 mg/dL (0.2-1.0); Glucose Level 127 mg/dL (74-106); Magnesium 2.4 mg/dL (1.8-2.4); NT PRO-BNP 543 pg/mL (<125); Potassium 4.9 mmol/L (3.5-5.1); Protein, Total 7.8 g/dL (6.4-8.2); Sodium Level 141 mmol/L (136-145); Troponin (Emerg Dept Use Only) < 0.02 ng/mL (0.0-0.045)
--- NOTE | 2021-08-31 20:24 | RAD REPORT ---
EXAM DESCRIPTION: RAD - Chest Single View - 08/31/2021 8:10 pm CLINICAL HISTORY: COUGH COMPARISON: Chest Single View dated 12/23/2019; Chest Single View dated 05/11/2019; Chest Single View d ated 07/24/2018; Chest Single View dated 03/25/2017 FINDINGS: Lines: None. Lungs: No evidence of edema or pneumonia. Pleural: No significant pleural effusions or pneumothorax. Cardiac: The heart size is within normal limits. Bones: No acute fractures. Other: IMPRESSION: No acute cardiopulmonary disease.
[2021-08-31] MEDS ORDERED: AMLODIPINE 5 MG TAB ONE (21:40)
--- NOTE | 2021-08-31 21:50 | RAD REPORT ---
EXAM DESCRIPTION: CT - Chest For Pe Angio - 08/31/2021 9:27 pm CLINICAL HISTORY: CHEST PAIN COMPARISON: No comparisons FINDINGS: Chest Wall: No suspicious thyroid nodules or pathologic lymphadenopathy. Lungs: Mild micro nodularity in the right upper lobe. Pleura: No significant effusions or pneumothorax. Mediastinum/viry: No pathologic lymphadenopathy. Pulmonary arteries/Aorta: No filling defect identified. No aortic aneurysm. Heart: No significant pericardial effusion. Normal heart size. Upper abdomen: No acute abnormality. Bones: No acute abnormality. All CT scans are performed using dose optimization technique as appropriate and may include automated exposure control or mA/KV adjustment according to patient size. IMPRESSION: Negative for pulmonary embolism. Mild right upper lobe micronodularity which may represe nt mild infection or inflammation. .
--- NOTE | 2021-08-31 22:02 | ER ---
Nurse's Notes [facility] Name: Parminder Smiley Age: 31 yrs Sex: Male : 1990 Arrival Date: 08/31/2021 Time: 19:08 Bed 6 Private MD: Diagnosis: Essential (primary) hypertension;Weakness;Pneumonia, unspecified organism-right upper lung Presentation: 08/31 19:18 Chief complaint: Patient states: general malaise. Coronavirus screen: Vaccine status: da3 Patient reports receiving the 2nd dose of the covid vaccine. Ebola Screen: No symptoms or risks identified at this time. Initial Sepsis Screen: Does the patient meet any 2 criteria? No. Patient's initial sepsis screen is negative. Does the patient have a suspected source of infection? No. Patient's initial sepsis screen is negative. Risk Assessment: Do you want to hurt yourself or someone else? Patient reports no desire to harm self or others. Onset of symptoms was August 30, 2021 at 15:00. 19:18 Method Of Arrival: Ambulatory da3 19:18 Acuity: REYMUNDO 3 da3 Triage Assessment: 19:22 General: Appears in no apparent distress. uncomfortable, Behavior is calm, cooperative, da3 quiet. Pain: Denies pain. 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 - Social history:: Smoking status: Patient reports the use of cigarette tobacco products, Patient denies any tobacco usage or history of. - Family history:: not pertinent. Screenin:42 Abuse screen: Denies threats or abuse. Denies injuries from another. Nutritional sm5 screening: No deficits noted. Tuberculosis screening: No symptoms or risk factors identified. Fall Risk No fall in past 12 months (0 pts). No secondary diagnosis (0 pts). IV access (20 points). Ambulatory Aid- None/Bed Rest/Nurse Assist (0 pts). Gait- Normal/Bed Rest/Wheelchair (0 pts) Mental Status- Oriented to own ability (0 pts). Total Swift Fall Scale indicates No Risk (0-24 pts). Assessment: 20:30 General: Appears in no apparent distress. Behavior is cooperative. Pain: Complains of 5 pain in face. Neuro: Level of Consciousness is awake, alert, Oriented to person, place, time, situation. Cardiovascular: Capillary refill < 3 seconds Patient's skin is warm and dry. Rhythm is regular. Respiratory: Airway is patent Trachea midline Respiratory effort is even, unlabored. GI: No deficits noted. : No deficits noted. 21:30 Reassessment: No changes from previously documented assessment. 5 22:30 Reassessment: Patient states feeling better. 5 Vital Signs: 19:18 BP 175 / 102; Pulse 95; Resp 20; Temp 98.8; Pulse Ox 99% on R/A; Weight 92.99 kg; da3 Height 6 ft. 2 in. (187.96 cm); 21:09 BP 151 / 83; Pulse 101; Resp 16; Pulse Ox 98% on R/A; sm5 22:40 BP 165 / 98; Pulse 92; Resp 16; Pulse Ox 100% ; sm5 19:18 Body Mass Index 26.32 (92.99 kg, 187.96 cm) da3 ED Course: 19:08 Patient arrived in ED. as 19:21 Triage completed. da3 19:22 Arm band placed on left wrist. da3 19:25 Ovidio Lombardi MD is Attending Physician. [facility] 19:31 Kenisha Jimenez, ALLYSSA is Primary Nurse. 5 19:42 Inserted saline lock: 20 gauge in right antecubital area, using aseptic technique. 5 Blood collected. 19:44 Patient has correct armband on for positive identification. Bed in low position. Call [facility] light in reach. Side rails up X 1. 19:44 LFT's Sent. 5 19:44 Magnesium Sent. 5 19:44 NT PRO-BNP Sent. 5 19:44 PT-INR Sent. 5 19:44 Troponin (emerg Dept Use Only) Sent. 5 19:45 CBC with Diff Sent. sm5 19:45 Basic Metabolic Panel Sent. sm5 19:45 D-Dimer Sent. sm5 19:45 Basic Metabolic Panel Sent. sm5 19:45 CBC with Automated Diff Sent. sm5 20:10 XRAY Chest (1 view) In Process Unspecified. EDMS 21:27 CT Chest For PE Angio In Process Unspecified. EDMS 22:01 Dima Flower MD is Referral Physician. [facility] Administered Medications: 19:50 Drug: NS 0.9% 500 ml Route: IV; Rate: bolus; Site: right antecubital; sm5 20:03 Drug: morphine 2 mg Route: IVP; Site: right antecubital; sm5 20:03 Drug: Zofran (Ondansetron) 4 mg Route: IVP; Site: right antecubital; sm5 20:03 Drug: hydrALAZINE 10 mg Route: IVP; Site: right antecubital; sm5 21:43 Drug: Norvasc (amlodipine) 5 mg Route: PO; sm5 22:26 Drug: Zithromax (azithromycin) 500 mg Route: PO; 5 Outcome: 22:02 Discharge ordered by . [facility] 22:36 Patient left the ED. 2 22:41 Discharged to home ambulatory, with significant other. [facility] 22:41 Condition: good 22:41 Discharge instructions given to patient, significant other, Instructed on discharge instructions, follow up and referral plans. medication usage, Demonstrated understanding of instructions, follow-up care, medications, Prescriptions given X 3. Signatures: Dispatcher [employer] [facility] Ovidio Lombardi MD MD cha Martinez, Amelia as [place], MyKena mw2 Jakob Minaya, RN RN 3 Kenisha Jimenez RN RN 5
--- NOTE | 2021-08-31 22:02 | EDPHYS ---
Physician Documentation [facility] Name: Parminder Smiley Age: 31 yrs Sex: Male : 1990 Arrival Date: 08/31/2021 Time: 19:08 Bed 6 Private MD: YOAN Physician Ovidio Lombardi HPI: 08/31 19:50 This 31 yrs old Male presents to ER via Ambulatory with complaints of High trevon Blood Pressure. 19:50 The patient has elevated blood pressure and discovered this at home, with a home trevon device. Onset: The symptoms/episode began/occurred 2 day(s) ago. Modifying factors: The symptoms are aggravated by activity, The symptoms are alleviated by remaining still. Associated signs and symptoms: Pertinent positives: headache. Severity of symptoms: At its worst the blood pressure was moderate, in the emergency department the blood pressure is unchanged. The patient has not experienced similar symptoms in the past. 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 - Social history:: Smoking status: Patient reports the use of cigarette tobacco products, Patient denies any tobacco usage or history of. - Family history:: not pertinent. ROS: 19:50 Constitutional: Negative for fever, chills, and weight loss, Eyes: Negative for injury, trevon pain, redness, and discharge, ENT: Negative for injury, pain, and discharge, Neck: Negative for injury, pain, and swelling, Cardiovascular: Negative for chest pain, palpitations, and edema, Respiratory: Negative for shortness of breath, cough, wheezing, and pleuritic chest pain, Abdomen/GI: Negative for abdominal pain, nausea, vomiting, diarrhea, and constipation, Back: Negative for injury and pain, : Negative for injury, bleeding, discharge, and swelling, MS/Extremity: Negative for injury and deformity, Skin: Negative for injury, rash, and discoloration, Psych: Negative for depression, anxiety, suicide ideation, homicidal ideation, and hallucinations, Allergy/Immunology: Negative for hives, rash, and allergies, Endocrine: Negative for neck swelling, polydipsia, polyuria, polyphagia, and marked weight changes, Hematologic/Lymphatic: Negative for swollen nodes, abnormal bleeding, and unusual bruising. 19:50 Neuro: Positive for headache. Exam: 19:50 Constitutional: This is a well developed, well nourished patient who is awake, alert, trevon and in no acute distress. Head/Face: Normocephalic, atraumatic. Eyes: Pupils equal round and reactive to light, extra-ocular motions intact. Lids and lashes normal. Conjunctiva and sclera are non-icteric and not injected. Cornea within normal limits. Periorbital areas with no swelling, redness, or edema. ENT: Nares patent. No nasal discharge, no septal abnormalities noted. Tympanic membranes are normal and external auditory canals are clear. Oropharynx with no redness, swelling, or masses, exudates, or evidence of obstruction, uvula midline. Mucous membranes moist. Neck: Trachea midline, no thyromegaly or masses palpated, and no cervical lymphadenopathy. Supple, full range of motion without nuchal rigidity, or vertebral point tenderness. No Meningismus. Chest/axilla: Normal chest wall appearance and motion. Nontender with no deformity. No lesions are appreciated. Cardiovascular: Regular rate and rhythm with a normal S1 and S2. No gallops, murmurs, or rubs. Normal PMI, no JVD. No pulse deficits. Respiratory: Lungs have equal breath sounds bilaterally, clear to auscultation and percussion. No rales, rhonchi or wheezes noted. No increased work of breathing, no retractions or nasal flaring. Abdomen/GI: Soft, non-tender, with normal bowel sounds. No distension or tympany. No guarding or rebound. No evidence of tenderness throughout. Back: No spinal tenderness. No costovertebral tenderness. Full range of motion. Male : Normal genitalia with no discharge or lesions. Skin: Warm, dry with normal turgor. Normal color with no rashes, no lesions, and no evidence of cellulitis. MS/ Extremity: Pulses equal, no cyanosis. Neurovascular intact. Full, normal range of motion. Neuro: Awake and alert, GCS 15, oriented to person, place, time, and situation. Cranial nerves II-XII grossly intact. Motor strength 5/5 in all extremities. Sensory grossly intact. Cerebellar exam normal. Normal gait. Psych: Awake, alert, with orientation to person, place and time. Behavior, mood, and affect are within normal limits. 19:50 Neck: ROM/movement: is normal, no acute changes. 20:01 ECG was reviewed by the Attending Physician. [facility] Vital Signs: 19:18 BP 175 / 102; Pulse 95; Resp 20; Temp 98.8; Pulse Ox 99% on R/A; Weight 92.99 kg; da3 Height 6 ft. 2 in. (187.96 cm); 21:09 BP 151 / 83; Pulse 101; Resp 16; Pulse Ox 98% on R/A; sm5 22:40 BP 165 / 98; Pulse 92; Resp 16; Pulse Ox 100% ; sm5 19:18 Body Mass Index 26.32 (92.99 kg, 187.96 cm) da3 MDM: 19:25 Patient medically screened. trevon 19:54 Differential diagnosis: hypertensive crisis, Malignant HTN, CVA, intracerebral trevon hemorrhage. Data reviewed: vital signs, nurses notes, lab test result(s), EKG, radiologic studies, CT scan, plain films. Data interpreted: labor and delivery nurse: rate is 95 beats/min, rhythm is regular, Pulse oximetry: on room air is 99 %. Test interpretation: by ED physician or midlevel provider: ECG, plain radiologic studies. Counseling: I had a detailed discussion with the patient and/or guardian regarding: the historical points, exam findings, and any diagnostic results supporting the discharge/admit diagnosis, lab results, radiology results. 08/31 19:28 Order name: Basic Metabolic Panel [facility] 08/31 19:28 Order name: CBC with Diff [facility] 08/31 19:28 Order name: LFT's; Complete Time: 20:36 [facility] 08/31 19:28 Order name: Magnesium; Complete Time: 20:36 [facility] 08/31 19:28 Order name: NT PRO-BNP; Complete Time: 20:36 [facility] 08/31 19:28 Order name: PT-INR; Complete Time: 20:36 [facility] 08/31 19:28 Order name: Troponin (emerg Dept Use Only); Complete Time: 20:36 [facility] 08/31 19:28 Order name: XRAY Chest (1 view); Complete Time: 20:36 [facility] 08/31 19:28 Order name: D-Dimer; Complete Time: 20:36 [facility] 08/31 19:28 Order name: Basic Metabolic Panel; Complete Time: 20:36 [facility] 08/31 19:28 Order name: CBC with Automated Diff; Complete Time: 20:36 [facility] 08/31 20:38 Order name: CT Chest For PE Angio; Complete Time: 22:00 [facility] 08/31 19:28 Order name: EKG; Complete Time: 19:28 [facility] 08/31 19:28 Order name: Cardiac monitoring; Complete Time: 19:44 [facility] 08/31 19:28 Order name: EKG - Nurse/Tech; Complete Time: 19:44 [facility] 08/31 19:28 Order name: IV Saline Lock; Complete Time: 19:44 [facility] 08/31 19:28 Order name: Labs collected and sent; Complete Time: 19:44 [facility] 08/31 19:28 Order name: O2 Per Protocol; Complete Time: 19:44 [facility] 08/31 19:28 Order name: O2 Sat Monitoring; Complete Time: 19:44 [facility] EC:01 Rate is 97 beats/min. Rhythm is regular. QRS [place] is Normal. [place] interval is normal. QRS trevon interval is normal. QT interval is normal. No Q waves. T waves are Normal. No ST changes noted. Clinical impression: Normal ECG and No evidence of ischemia. Interpreted by me. Reviewed by me. Administered Medications: 19:50 Drug: NS 0.9% 500 ml Route: IV; Rate: bolus; Site: right antecubital; sm5 20:03 Drug: morphine 2 mg Route: IVP; Site: right antecubital; sm5 20:03 Drug: Zofran (Ondansetron) 4 mg Route: IVP; Site: right antecubital; sm5 20:03 Drug: hydrALAZINE 10 mg Route: IVP; Site: right antecubital; sm5 21:43 Drug: Norvasc (amlodipine) 5 mg Route: PO; sm5 22:26 Drug: Zithromax (azithromycin) 500 mg Route: PO; sm5 Disposition Summary: 08/31/21 22:02 Discharge Ordered Location: Home trevon Problem: new trevon Symptoms: have improved trevon Condition: Stable trevon Diagnosis - Essential (primary) hypertension trevon - Weakness trevon - Pneumonia, unspecified organism - right upper lung trevon Followup: trevon - With: Private Physician - When: 2 - 3 days - Reason: Recheck today's complaints, Continuance of care, Re-evaluation by your physician Followup: trevon - With: - When: 2 - 3 days - Reason: Recheck today's complaints, Re-evaluation by your physician Discharge Instructions: - Discharge Summary Sheet trevon - Hypertension, Adult trevon - Weakness trevon - Fatigue trevon - Hypertension, Adult, Mhfl-xz-Vcig trevon - Community-Acquired Pneumonia, Adult trevon - How to Take Your Blood Pressure, Awlt-po-Illd trevon - Weakness, Qusd-cw-Aqvr trevon - Aspirin and Your Heart trevon - Managing Your Hypertension trevon Forms: - Medication Reconciliation Form trevon - Thank You Letter trevon - Antibiotic Education trevon - Prescription Opioid Use trevon Prescriptions: - losartan 50 mg Oral tablet - take 1 tablet by ORAL route once daily; 30 tablet; Refills: 0, Product trevon Selection Permitted - Norvasc 5 mg Oral Tablet - take 1 tablet by ORAL route once daily; 20 tablet; Refills: 0, Product trevon Selection Permitted - Zithromax 500 mg Oral Tablet - take 1 tablet by ORAL route once daily for 5 days; 5 tablet; Refills: 0, trevon Product Selection Permitted Signatures: Dispatcher [employer] Ovidio Huber MD MD cha Allan, David, RN RN da3 Kenisha Jimenez RN RN sm5
[2021-08-31] MEDS ORDERED: AZITHROMYCIN 250 MG TAB ONE (22:22)
[2021-08-31 22:42] VITALS: TEMP 98.8
[2021-08-31 22:45] VITALS: BP 151/83; O2SAT 98
== END 2021-08-31 22:36 | disposition home or self-care (01) ==
LOC: ER 19:04
DX: J18.9 Pneumonia, unspecified organism (principal); I10 Essential (primary) hypertension; R53.1 Weakness; E11.9 Type 2 diabetes mellitus without complications
CPT/HCPCS: 93005; 85025; 80048; 36415; 83735; 85610; 85379; 80076; 84484; 83880; 71275; 71045; 96375; 96374; 99284; Q9967; J0360; J2270; J7040; J2405

== ENCOUNTER 2021-11-13 06:41 | Emergency (ER) | payer BC ==
--- OUTSIDE RECORDS SUMMARY | 2021-11-13 06:43 | XMS REPORT | Continuity of Care Document ---
:[address] [facility] t Address [address] [place] [address] Care Team Providers Name Role Phone TRAVIS Attending Clinician Unavailable NAM, AYESHA Admitting Clinician Unavailable Payers Payer Name Policy Type Policy Number Effective Date Expiration Date S ource Problems This patient has no known problems. Allergies, Adverse Reactions, Alerts Allergy Allergy Status Severity Reaction(s) Onset Inactive Treating Comm ents Source Name Type Date Date Clinician NO KNOWN Allergy Active [facility] Medications This patient has no known medications. Procedures This patient has no known procedures. Encounters Start End Encounter Admission Attending Care Care Encounter Source Date/Time Date/Time Type Type Clinicians Facility Department ID 2019-12-[address] [facility] [id number] [facility] 02:10:00 [id number] Results Test Description Test Time Test Comments Results Result Comments Source BLOOD CULTURE 2019-12-29 07:00:00 Test Item Value Reference Range Interpretation Comme nts CULTURE (BEAKER) (test code = 1095) No growth in 5 days BLOOD [id number] 07:00:00 Test Item Value Reference Range Interpretation Comments CULTURE (BEAKER) (test No growth in 5 days code = 1095) POCT-GLUCOSE [id number] 11:56:00 Test Item Value Reference Range Interpretation Comments POC-GLUCOSE METER 260 mg/dL 70-110 H : TESTED A T [facility] 6720 (BEAKER) (test code [facility], = 1538) [id number]: [employer] Goods Cutter Finisher/Techni lior ID = [id number] for TSEG GAI, TSIGHEREDA POCT-GLUCOSE [id number] 08:42:00 Test Item Value Reference Range Interpretation Comments POC-GLUCOSE METER 230 mg/dL 70-110 H : TESTED A T [facility] 6720 (BEAKER) (test code = JASON [place], 1538) [id number]: Rub[employer]s Cutter Finisher/Techni lior ID = [id number] for YURI ROSARIO BASIC METABOLIC [id number] 04:48:00 Test Item Value Reference Range Interpretation [...] 1092) DATA TO CALCULA TE ESTIMATED GFR. [employer] Cutter Finisher ID - LUZMA [id number] 04:40:00 Test Item Value Reference Range Interpretation Comments MAGNESIUM (BEAKER) (test code = 2.1 mg/dL 1.6-2.6 627) [employer] Cutter Finisher ID - LUZMA WCBC W/PLT COUNT & AUTO [id number] 04:23:00 Test Item Value Reference Range Interpretation [...] (test code = 2801) MR, SPINE, CERVICAL, [id number] 01:07:00FINAL REPORT MRI Brain with and without [...] Rogerio Pruitt MDReport Verified Date/Time: 12/26/2019 01:07:39 [facility], BRAIN, [id number] 01:07:00FINAL REPORT MRI Brain with and without [...] T [facility] 6720 (BEAKER) (test code = [facility], 1538) [id number]: Rubber Goods Cutter Finisher/Techni lior ID = [id number] for JENNIFER CARRASCO POCT-GLUCOSE [id number] 17:01:00 Test Item Value Reference Range Interpretation Comments POC-GLUCOSE METER 183 mg/dL 70-110 H : TESTED A T [facility] 6720 (BEAKER) (test code = [facility], 1538) [id number]: Rub[employer]s Cutter Finisher/Techni lior ID = [id number] for JAMIE ARMAS T4, [id number] 14:20:00 Test Item Value Reference Range Interpretation Comments FREE T4 (BEAKER) (test code = 655) 0.99 ng/dL 0.70-1.48 [employer] Cutter Finisher ID - ROGER FTSH/FREE T4 IF [id number] 13:43:00 Test Item Value Reference Range Interpretation Comments THYROID STIMULATING HORMONE 0.35 uIU/mL 0.35-4.94 (BEAKER) (test code = 772) [employer] Cutter Finisher ID - ROGER FCREATINE KINASE (CK)2019-12-25 13:21:00 Test Item Value Reference Range Interpretation Comments CREATINE KINASE TOTAL (BEAKER) (test 105 U/L 29-200 code = 380) Rubber [employer]s Cutter Finisher ID - ROGER FPOCT-GLUCOSE [id number] 12:59:00 Test Item Value Reference Range Interpretation Comments POC-GLUCOSE METER 261 mg/dL 70-110 H : TESTED A T [facility] 6720 (BEAKER) (test code = [facility], 1538) [id number]: Rubber Goods Cutter Finisher/Techni lior ID = [id number] for Mitzi Woodruff HEMOGLOBIN [id number] 08:42:00 Test Item Value Reference Range Interpretation Comments HEMOGLOBIN A1C (BEAKER) (test code = 13.2 % 4.3-6.1 H 368) POCT-GLUCOSE [id number] 07:47:00 Test Item Value Reference Range Interpretation Comments POC-GLUCOSE METER 266 mg/dL 70-110 H : TESTED A T [facility] 6720 (BEAKER) (test code = [facility], 1538) [id number]: Rubber Goods Cutter Finisher/Techni lior ID = [id number] for AN JAMIE CEBALLOS BASIC METABOLIC [id number] 06:40:00 Test Item Value Reference Range Interpretation [...] 1092) DATA TO CALCULA TE ESTIMATED GFR. [employer] Cutter Finisher ID Jose CORCORAN [id number] 06:33:00 Test Item Value Reference Range Interpretation Comments MAGNESIUM (BEAKER) (test code = 2.0 mg/dL 1.6-2.6 627) Rub[employer] Cutter Finisher ID Jose CORCORAN LHIV-1 ANTIGEN WITH HIV-1/2 [id number] 06:32:00 Test Item Value Reference Range Interpretation Comments HIV-1 ANTIGEN WITH HIV 1\T\2 Nonreactive Nonreactive ANTIBODY (2) (BEAKER) (test code = 2586) Rub[employer] Cutter Finisher ID Jose CORCORAN LCBC W/PLT COUNT & AUTO [id number] 05:58:00 Test Item Value Reference Range Interpretation [...] PERCENT (BEAKER) (test code = 2801) POCT-GLUCOSE [id number] 20:37:00 Test Item Value Reference Range Interpretation Comments POC-GLUCOSE METER 283 mg/dL 70-110 H : TESTED A T [facility] 6720 (BEAKER) (test code = [place], 1538) [id number]: Rubber Goods Cutter Finisher/Techni lior ID = [id number] for CANDACEJENNIFER POCT-GLUCOSE [id number] 18:31:00 Test Item Value Reference Range Interpretation Comments POC-GLUCOSE METER 189 mg/dL 70-110 H : TESTED A T [facility] 6720 (BEAKER) (test code = [facility], 1538) [id number]: Rubber Goods Cutter Finisher/Techni lior ID = [id number] for [place] INSONU, DENA POCT-GLUCOSE [id number] 18:29:00 Test Item Value Reference Range Interpretation Comments POC-GLUCOSE METER 254 mg/dL 70-110 H : TESTED A T [facility] 6720 (BEAKER) (test code = [facility], 1538) [id number]: Rubber Goods Cutter Finisher/Techni lior ID = [id number] for [place] INSONU, DENA POCT-GLUCOSE [id number] 18:25:00 Test Item Value Reference Range Interpretation Comments POC-GLUCOSE METER 313 mg/dL 70-110 H : TESTED A T [facility] 6720 (BEAKER) (test code = [facility], 1538) [id number]: Rubber Goods Cutter Finisher/Techni lior ID = [id number] for [place] INSONU, DENA BASIC METABOLIC [id number] 15:32:00 Test Item Value Reference Range Interpretation [...] 1092) DATA TO CALCULA TE ESTIMATED GFR. Rub[employer]s Cutter Finisher ID - JORGE [id number] 07:49:00 Test Item Value Reference Range Interpretation Comments RPR SCREEN (BEAKER) (test code = Nonreactive Nonreactive 420) HEPATIC FUNCTION [id number] 07:25:00 Test Item Value Reference Range Interpretation [...] (test code = 14 U/L 6-55 347) Rubber [employer]s Cutter Finisher ID Jose CORCORAN [id number] 07:20:00 Test Item Value Reference Range Interpretation Comments PROCALCITONIN (BEAKER) (test code 0.21 ng/mL <0.05 H = 3036) SEPSIS RISK (ng/mL)Low: 0.05-0.50Intermediate: 0.51-2.00High: >=2.01TSH/FREE T4 IF [id number] 06:44:00 Test Item Value Reference Range Interpretation Comments THYROID STIMULATING HORMONE 0.36 uIU/mL 0.35-4.94 (BEAKER) (test code = 772) Rubber [employer]s Cutter Finisher ID - LUZMA WVITAMIN B12 AND [id number] 06:44:00 Test Item Value Reference Range Interpretation Comments VITAMIN B12 (BEAKER) (test code = 329 pg/mL 213-816 774) FOLATE (BEAKER) (test code = 362) 8.8 ng/mL >=7.0 Rubber [employer]s Cutter Finisher ID - LUZMA WBASIC METABOLIC [id number] 06:12:00 Test Item Value Reference Range Interpretation [...] 1092) DATA TO CALCULA TE ESTIMATED GFR. Rub[employer] Cutter Finisher ID - PIAYA LCBC W/PLT COUNT & AUTO [id number] 06:10:00 Test Item Value Reference Range Interpretation [...] 0-1 PERCENT (BEAKER) (test code = 2801) [id number] 06:05:00 Test Item Value Reference Range Interpretation Comments MAGNESIUM (BEAKER) (test code = 1.8 mg/dL 1.6-2.6 627) Rubber [employer]s Cutter Finisher ID - PIDEBORAH LC-REACTIVE [id number] 06:05:00 Test Item Value Reference Range Interpretation Comments C-REACTIVE PROTEIN (BEAKER) (test 4.39 mg/dL 0.00-0.50 H code = 676) Rubber [employer]s Cutter Finisher ID - PIAYA LLACTIC ACID, [id number] 05:44:00 Test Item Value Reference Range Interpretation Comments LACTATE BLOOD VENOUS (2) (BEAKER) 2.05 mmol/L 0.50-2.20 (test code = 2872) Rubber Goods Cutter Finisher ID - PIDEBORAH LPOCT-GLUCOSE [id number] 04:19:00 Test Item Value Reference Range Interpretation Comments POC-GLUCOSE METER 435 mg/dL 70-110 HH : TESTED A T [facility] 6720 (BEAKER) (test code = [place], 1538) [id number]: Rubber Goods Cutter Finisher/Techni lior ID = [id number] for RA COCHRAN
[2021-11-13] MEDS ORDERED: NA CHLORIDE 0.9% 1,000 ML ONE (07:31)
[2021-11-13 07:46] LABS: Hematocrit 30.2 % (39.6-49.0); Lymphocytes % 17.5 % (15.3-44.8); MPV 6.7 fL (7.6-11.3); RBC Red Blood Cell Count 3.62 M/uL (4.33-5.43)
[2021-11-13 08:01] LABS: Potassium 4.5 mmol/L (3.5-5.1)
--- NOTE | 2021-11-13 08:04 | EDPHYS ---
Physician Documentation [facility] Name: Parminder Smiley Age: 31 yrs Sex: Male : 1990 Arrival Date: 11/13/2021 Time: 06:45 Bed 19 Private MD: ED Physician Des Mott HPI: 11/13 07:09 This 31 yrs old Male presents to ER via Ambulatory with complaints of kb medication withdraws. 07:09 Pt reports he stopped taking tylenol #4 3 months ago after taking it for a year. States kb Dr Arguelles gave him 15 days worth of suboxone that he made last for the 3 months. States he has been taking little pieces of the strips instead of a whole dose. States his last little piece was taken Thursday. Has been having insomnia and diarrhea since Thursday night.. Onset: The symptoms/episode began/occurred 3 day(s) ago. Severity of symptoms: At their worst the symptoms were moderate in the emergency department the symptoms are unchanged. The patient has not experienced similar symptoms in the past. The patient has not recently seen a physician. 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 - Social history:: Smoking status: Patient denies any tobacco usage or history of. ROS: 07:07 Constitutional: Negative for fever, chills, and weight loss. kb 07:07 Abdomen/GI: Positive for diarrhea. 07:07 Psych: Positive for insomnia. 07:07 All other systems are negative. Exam: 07:07 Constitutional: This is a well developed, well nourished patient who is awake, alert, kb and in no acute distress. Head/Face: Normocephalic, atraumatic. ENT: Moist Mucous membranes Cardiovascular: Regular rate and rhythm with a normal S1 and S2. No gallops, murmurs, or rubs. No pulse deficits. Respiratory: Respirations even and unlabored. No increased work of breathing. Talking in full sentences Abdomen/GI: Soft, non-tender. No distention Skin: Warm, dry with normal turgor. Normal color. MS/ Extremity: Pulses equal, no cyanosis. Neurovascular intact. Full, normal range of motion. Neuro: Awake and alert, GCS 15, oriented to person, place, time, and situation. Moves all extremities. Normal gait. Psych: Awake, alert, with orientation to person, place and time. Behavior, mood, and affect are within normal limits. Vital Signs: 06:51 BP 117 / 72; Pulse 96; Resp 18; Temp 99.1; Pulse Ox 100% ; Weight 95.25 kg; Height 6 al4 ft. 2 in. (187.96 cm); 08:30 BP 182 / 93; Pulse 99; Resp 16; Pulse Ox 100% ; bp 06:51 Body Mass Index 26.96 (95.25 kg, 187.96 cm) al4 MDM: 06:56 Patient medically screened. kb 07:07 Data reviewed: vital signs, nurses notes. Data interpreted: Pulse oximetry: on room air kb is 100 %. Interpretation: normal. 08:02 Counseling: I had a detailed discussion with the patient and/or guardian regarding: the kb historical points, exam findings, and any diagnostic results supporting the discharge/admit diagnosis, lab results, the need for outpatient follow up, a family practitioner, to return to the emergency department if symptoms worsen or persist or if there are any questions or concerns that arise at home. 11/13 07:03 Order name: CBC with Diff; Complete Time: 07:50 kb 11/13 07:03 Order name: Basic Metabolic Panel; Complete Time: 08:02 kb 11/13 07:03 Order name: IV Start; Complete Time: 07:42 kb Administered Medications: 07:40 Drug: NS 0.9% 1000 ml Route: IV; Rate: 1000 ml; Site: right forearm; bp 08:36 Follow up: IV Status: Completed infusion; IV Intake: 1000ml bp 08:34 Not Given (Patient Refused): Tylenol 1000 mg PO once bp Disposition Summary: 11/13/21 08:03 Discharge Ordered Location: Home kb Condition: Stable kb Diagnosis - Insomnia kb - Diarrhea, unspecified kb Followup: kb - With: Emergency Department - When: As needed - Reason: Worsening of condition Followup: kb - With: Private Physician - When: 2 - 3 days - Reason: Recheck today's complaints, Continuance of care, Re-evaluation by your physician Discharge Instructions: - Discharge Summary Sheet kb - Opioid Withdrawal Treatment kb Forms: - Medication Reconciliation Form kb - Thank You Letter kb - Antibiotic Education kb - Prescription Opioid Use kb Prescriptions: - promethazine 25 mg Oral Tablet - take 1 tablet by ORAL route every 8 hours As needed; 3 tablet; Refills: 0, kb Product Selection Permitted Addendum: 11/15/2021 22:43 Co-signature as Attending Physician, Des Mott MD. [facility] Signatures: Dispatcher [employer] EDDana Clements, CLEO-Gregorio GALLO-Geoffrey Varma, RN RN Des Hutton MD MD 7 [facility] Shuk[facility]
--- NOTE | 2021-11-13 08:04 | ER ---
Nurse's Notes [facility] Name: Parminder Smiley Age: 31 yrs Sex: Male : 1990 Arrival Date: 11/13/2021 Time: 06:45 Bed 19 Private MD: Diagnosis: Insomnia;Diarrhea, unspecified Presentation: 11/13 06:47 Chief complaint: Patient states: "im going through withdraws from tylenol 4's which I al4 was taking for a year and I havent slept in 2 days". Coronavirus screen: Vaccine status: Patient reports receiving the 2nd dose of the covid vaccine. [employer]. Ebola Screen: No symptoms or risks identified at this time. Initial Sepsis Screen: Does the patient meet any 2 criteria? No. Patient's initial sepsis screen is negative. Does the patient have a suspected source of infection? No. Patient's initial sepsis screen is negative. Risk Assessment: Do you want to hurt yourself or someone else? Patient reports no desire to harm self or others. Onset of symptoms was November 11, 2021. 06:47 Method Of Arrival: Ambulatory al4 06:47 Acuity: REYMUNDO 3 al4 Triage Assessment: 06:51 General: Appears in no apparent distress. comfortable, Behavior is calm, cooperative. al4 General: denies pain but states "discomfort in wrists, fingers, and shoulders". Pain: Denies pain. Neuro: Level of Consciousness is awake, alert, obeys commands, Oriented to person, place, time, situation. Cardiovascular: Capillary refill < 3 seconds. Respiratory: Airway is patent Respiratory effort is unlabored, Respiratory pattern is regular. Musculoskeletal: Range of motion: intact in all extremities. 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 - Social history:: Smoking status: Patient denies any tobacco usage or history of. Screenin:00 Abuse screen: Denies threats or abuse. Denies injuries from another. Nutritional bp screening: No deficits noted. Tuberculosis screening: No symptoms or risk factors identified. Fall Risk None identified. Assessment: 07:00 General: SEE TRIAGE NOTE. bp 08:34 Reassessment: PT D/C HOME, DX WITH INSOMNIA. bp Vital Signs: 06:51 BP 117 / 72; Pulse 96; Resp 18; Temp 99.1; Pulse Ox 100% ; Weight 95.25 kg; Height 6 al4 ft. 2 in. (187.96 cm); 08:30 BP 182 / 93; Pulse 99; Resp 16; Pulse Ox 100% ; bp 06:51 Body Mass Index 26.96 (95.25 kg, 187.96 cm) al4 ED Course: 06:45 Patient arrived in ED. ja2 06:51 Triage completed. al4 06:51 Arm band placed on right wrist. al4 06:56 Dana Casper F[facility]-C [facility]. kb 06:56 Des Mott MD is Attending Physician. kb 07:00 Patient has correct armband on for positive identification. Bed in low position. Call bp light in reach. Side rails up X2. 07:13 Geoffrey Nation, RN is Primary Nurse. bp 07:40 Inserted saline lock: 20 gauge in right forearm, using aseptic technique. Blood bp collected. 08:30 No provider procedures requiring assistance completed. IV discontinued, intact, bp bleeding controlled, No redness/swelling at site. Pressure dressing applied. Administered Medications: 07:40 Drug: NS 0.9% 1000 ml Route: IV; Rate: 1000 ml; Site: right forearm; bp 08:36 Follow up: IV Status: Completed infusion; IV Intake: 1000ml bp 08:34 Not Given (Patient Refused): Tylenol 1000 mg PO once bp Intake: 08:36 IV: 1000ml; Total: 1000ml. bp Outcome: 08:03 Discharge ordered by . kb 08:30 Discharged to home via wheelchair. bp 08:30 Condition: stable 08:30 Discharge instructions given to patient, Instructed on discharge instructions, follow up and referral plans. medication usage, Demonstrated understanding of instructions, follow-up care, medications, Prescriptions given X 1. 08:37 Patient left the ED. bp Signatures: Dana Casper FNP-C FNP-Geoffrey Varma, RN RN Shelli Alegria ja2 Chema Shukla al4 Corrections: (The following items were deleted from the chart) 06:53 06:47 Chief complaint: Patient states: "im going through withdraws from tylenol 4's al4 which I was taking for a year and I havent slept in 2 days" al4
[2021-11-13] MEDS ORDERED: ACETAMINOPHEN 500 MG TAB ONE (08:22)
[2021-11-13 08:43] VITALS: TEMP 99.1; O2SAT 100
[2021-11-13 08:44] VITALS: BP 182/93
== END 2021-11-13 08:37 | disposition home or self-care (01) ==
LOC: ER 06:41
DX: G47.00 Insomnia, unspecified (principal); R19.7 Diarrhea, unspecified
CPT/HCPCS: 85025; 80048; 36415; 96360; 99284; J7030

== ENCOUNTER 2023-03-20 02:10 | Emergency (ER) | payer BC ==
--- OUTSIDE RECORDS SUMMARY | 2023-03-20 02:15 | XMS REPORT | Continuity of Care Document ---
:1990 Author Organization [facility] t Address [address] [facility] [place] [address] Care Team Providers Name Role Phone Kristy Arguelles Primary Care Physician Rj Elkins Attending Clinician Juan Michaud Attending Clinician MONI ROBLES Attending Clinician Unavailable TAYLOR NAM Admitting Clinician Unavailable Payers Payer Name Policy Type Policy Number Effective Date Expiration Date S ource Problems Condition Condition Condition Status Onset Resolution Last Treating Co mments Source Name Details Category Date Date Treatment Clinician Date Other Other Disease Active [facility] syndrome 00:[facility] Medica l 00 Center Type 2 Type [address] [facility] diabetes diabetes nce 4-05 [facility] mellitus mellitus 00:00: Medica l with with 00 Center hyperglyce hyperglyce krysta, with krysta, with long-term long-term current current use of use of insulin insulin Weakness Weakness Disease [facility] Paresthesi Paresthes Problem Resolve 2022-06-06 Memoria a of foot ia of foot d 05:23:36 l (finding) (finding) Herm larissa Resolved Problem 06/06/2022 [facility] Amputated Amputated Problem Active 2023-02-28 Memoria toe toe 08:16:58 l (finding) (finding) Herm larissa Active Problem 02/28/2023 [facility] Cervical Cervical Problem Active 2023-02-28 Memoria spondylosi spondylosi 08:16:58 l s s Moses (disorder) (disorder) Active Problem 02/28/2023 [facility] Chronic Chronic Problem Active 2023-02-28 Co moria inflammato inflammato 08:16:58 l ry ry Moses demyelinat 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 (disorder) (disorder) Active Problem 02/28/2023 [facility] Foot-drop Foot-drop Problem Active 2023-02-28 Memoria (finding) (finding) 08:16:58 l Active Kell Problem 02/28/2023 [facility] Lumbar Lumbar Problem Active 2023-02-28 Bill moisés spondylosi spondylosi 08:16:58 l s s Kell (disorder) (disorder) Active Problem 02/28/2023 [facility] 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 yeimi 08:16:58 l (disorder) (disorder) He rmann Active Problem [facility]20[facility] Recurrent Problem Active 2023-02-28 Me moria falls Recurrent 08:16:58 l (finding) falls Moses (finding) Active Problem 02/28/2023 [facility] Diabetes Diabetes Problem Active 2023-02-28 Memoria mellitus mellitus 08:16:58 l type 1 type 1 Moses (disorder) (disorder) Active Problem 02/28/2023 [facility] N18.31 - N18.31 - Diagnosis Active 2022-07-18 Memoria CHRONIC CHRONIC 09:40:00 l KIDNEY KIDNEY Moses DISEASE, DISEASE, STAGE STAGE Active [facility] HANNY Demarco Allergies, Adverse Reactions, Alerts Allergy Allergy Status Severity Reaction(s) Onset Inactive Treating Comm ents Source Name Type Date Date Clinician NO KNOWN Allergy [facility] Social History Social Habit Start Date Stop Date Quantity Comments Source History [facility] Alcohol Std Drinks Medica l Center History [facility] Alcohol Binge Medical Jania ter Tobacco use and 2019-12-24 2019-12-24 Smokeless tobacco [facility] exposure 00:00[facility]00 00:00:00 non-user Medical Center Alcohol intake 2019-12-24 2019-12-[address] [facility] 00:00:00 00:00:00 non-drinker of Medical Ce nter alcohol (finding) History [facility] 2019-12-24 2019-12-[address] [facility] Alcohol Frequency 00:00:00 00:00:00 [facility] Sex Assigned At [birth year] SANTIAGO See kes 00:00:00 00:00:00 Medical Center Smoking Status Start Date Stop Date Source Tobacco smoking status [facility] Medications Ordered Filled Start Stop Current Ordering Indication Dosage Frequency Signature Comments Components Source Medication Medication Date Date Medication? Clinician (SIG) Name Name Gamunex-C Yes See Memoria 10% 9-13 Instructio l injectable 21:00: ns, 40 gm He rmann solution 00 IV q3Week, # 40 gm, 4 Refill(s), 182.88, cm, 06/03/22 15:37:00 CDT, Height, 116.989, kg, 06/03/22 15:37:00 CDT, Weight [facility] 2020-09 Yes PO, Daily, Mem oria 2-10 0 l 22:02: Refill(s) Kell losartan 2020-09 Yes PO, Daily, Mem oria 2-10 0 l 22:02: Refill(s) Kell Gamunex-C 2020-09 Yes See Memoria 10% 0-08 Instructio l injectable 19:13: ns, 40 gm He rmann solution 00 IV q6Week, # 40 gm, 0 Refill(s), 180.34, cm, 06/28/21 10:36:00 CDT, Height, 96.364, kg, 06/28/21 10:36:00 CDT, Weight Gamunex-C 2020-09 Yes 40 gm, IV, Me moria 10% 0-08 Daily, # l injectable 19:10: 120 gm, 0 He rmann solution 00 Refill(s), 180.34, cm, 06/28/21 10:36:00 CDT, Height, 96.364, kg, 06/28/21 10:36:00 CDT, Weight Humalog Yes SUB-Q, 0 Memori a 6-30 Refill(s) l 20:26: Moses 00 Levemir Yes SUB-Q, 0 Memori a 6-30 Refill(s) l 20:26: Kell 00 Humalog Yes SUB-Q, 0 Memori a 6-30 Refill(s) l 20:26: Moses 00 Levemir Yes SUB-Q, 0 Memori a 6-30 Refill(s) l 20:26: Kell 00 Acetaminoph Yes 0 Memori a en 300 MG / 6-30 Refill(s) l Codeine 20:22: Moses Phosphate 00 60 MG Oral Tablet acetaminoph Yes 0 Memori a en-codeine 6-30 Refill(s) l 300 mg-60 20:22: Kell mg oral 00 tablet methocarbam Yes 0 Memori a ol 750 mg 6-30 Refill(s) l oral tablet 20:22: Baudilio n 00 gabapentin Yes See Memoria 600 MG Oral 6-30 Instructio l Tablet 20:21: ns, 3 po Kell 00 bid, 0 Refill(s) gabapentin Yes See Memoria 600 mg oral 6-30 Instructio l tablet 20:21: ns, 3 po Kell 00 bid, 0 Refill(s) gabapentin Yes 1800mg Q.5D Take 1,[address] (NEURONTIN) 4-06 mg by [facility] 600 MG 13:09: mouth 2 Medical tablet 24 (two) Center times daily . insulin 2019-0 Yes type [address] lispro 4-06 diabetes subcutaneo Tien es (HUMALOG) 13:09: mellitus usly 3 Me dical 100 unit/mL 24 (three) Cente r injection times daily before meals Pt takes 10 units at breakfast, 11 units at lunch, and 12 units at dinner . lisinopriL 2020-0 Yes 20mg QD Take [address] (PRINIVIL,Z 4-06 by mouth More[facility] ramsey ESTRIL) 20 13:09: daily. Medic al MG tablet 24 Center acetaminoph 2020-0 Yes pain 1{tbl} Take [address] en-codeine 4-06 tablet by Moreno ramsey (TYLENOL 13:09: mouth Medical #4) 300-60 24 every 8 Center mg per (eight) tablet hours as needed for Pain. methocarbam 2020-0 Yes 750mg Q.5D Take [address] oL 4-06 mg by Rosa (ROBAXIN) 13:09: mouth 2 Medic al 750 MG 24 (two) Center tablet times daily. insulin 2020-0 Yes 25U QD Inject 25 [facility] detemir 4-06 Units [facility] U-100 00:00: subcutaneo Medica l (LEVEMIR) 00 usly Center 100 unit/mL nightly. injection Vital Signs Vital Name Observation Time Observation Value Comments Source Systolic (mm Hg) 2022-10-28 16:55:00 Bill rial Moses Diastolic (mm Hg) 2022-10-28 16:55:00 Mem orial Moses Heart Rate 2022-10-28 16:55:00 [facility] Height 2022-10-28 16:55:00 6 [ft_i] [facility] Weight 2022-10-28 16:55:00 [facility] BMI Calculated 2022-10-28 16:55:00 Memori al Moses Systolic (mm Hg) 2022-06-03 20:25:00 Bill rial Moses Diastolic (mm Hg) 2022-06-03 20:25:00 Mem orial Kell Heart Rate 2022-06-03 20:25:00 [facility] Respitory Rate 2022-06-03 20:25:00 Memori al Moses Height 2022-06-03 20:25:00 182.88 cm [facility] Weight 2022-06-03 20:25:00 [facility] BMI Calculated 2022-06-03 20:25:00 Memori al Kell Systolic (mm Hg) 2021-08-30 21:45:00 Bill rial Moses Diastolic (mm Hg) 2021-08-30 21:45:00 Mem orial Kell Heart Rate 2021-08-30 21:45:00 [facility] Moses Respitory Rate 2021-08-30 21:45:00 Memori al Kell Height 2021-08-30 21:45:00 182.88 cm [facility] Kell Weight 2021-08-30 21:45:00 [facility] Moses BMI Calculated 2021-08-30 21:45:00 Memori al Kell Systolic (mm Hg) 2021-06-28 15:15:00 Bill rial Moses Diastolic (mm Hg) 2021-06-28 15:15:00 Mem orial Kell Heart Rate 2021-06-28 15:15:00 [facility] Kell Respitory Rate 2021-06-28 15:15:00 Memori al Kell Height 2021-06-28 15:15:00 180.34 cm [facility] Kell Weight 2021-06-28 15:15:00 [facility] Kell BMI Calculated 2021-06-28 15:15:00 Memori al Kell Systolic (mm Hg) 2021-05-29 14:26:00 Bill rial Moses Diastolic (mm Hg) 2021-05-29 14:26:00 Mem orial Kell Heart Rate 2021-05-29 14:26:00 [facility] Kell Respitory Rate 2021-05-29 14:26:00 Memori al Moses Height 2021-05-29 14:26:00 180.34 cm [facility] Kell Weight 2021-05-29 14:26:00 [facility] Kell BMI Calculated 2021-05-29 14:26:00 Memori al Kell Height 2021-04-17 13:14:00 187.96 cm [facility] Moses Weight 2021-04-17 13:14:00 [facility] Moses BMI Calculated 2021-04-17 13:14:00 Memori al Kell Systolic (mm Hg) 2021-03-20 20:11:00 Bill rial Moses Diastolic (mm Hg) 2021-03-20 20:11:00 Mem orial Kell Heart Rate 2021-03-20 20:11:00 [facility] Kell Respitory Rate 2021-03-20 20:11:00 Memori al Kell Height 2021-03-20 20:11:00 187.96 cm Mei Fletcherann Weight 2021-03-20 20:11:00 Mei Lopes BMI Calculated 2021-03-20 20:11:00 Briseyda Murray Procedures Procedure Date / Time Performed Performing Clinician [facility] Amputation of toe Mei Fletchera nn Encounters Start End Encounter Admission Attending Care Care Encounter Source Date/Time Date/Time Type Type Clinicians Facility Department ID 2019-12-24 Inpatient SLEH SLEH [id number] [facility]H 02:10:00 [id number] 2023-02-25 2023-02-25 Ambulatory MHIE MNA [id number] Memoria 18:30:00 18:30:00 Pre-Reg Neurology 11 yahaira Fletcherann 2023-02-25 2023-02-25 Outpatient MHIE MHIE [id number] Memoria 13:30:00 13:30:00 11 yahaira Lopes 2023-02-25 2023-02-25 Outpatient ERA ElkinsSCHER MHMISCHER [id number] 13:30:00 13:30:00 Rj Kerry Hall 2023-02-25 2023-02-25 Outpatient ERA ElkinsSCHER MHMISCHER [id number] 13:30:00 13:30:00 Rj Kerry Hall 2022-10-28 2022-10-29 Outpatient MHIE MNA [id number] Memoria 17:00:00 05:59:59 Neurology 10 yahaira Fletcherann 2022-10-28 2022-10-28 Outpatient ERA ElkinsSCHER MHMISCHER [id number] 11:00:00 23:59:59 Rj Michelle Hall 2022-10-28 2022-10-28 Outpatient MHIE MHIE [id number] Memoria 11:00:00 11:00:00 10 yahaira Lopes 2022-08-28 2022-08-28 Ambulatory MHIE MNA [id number] Memoria 17:15:00 17:15:00 Pre-Reg Neurology 09 yahaira Fletcherann 2022-08-28 2022-08-28 Outpatient MHIE MHIE [id number] Memoria 11:15:00 11:15:00 09 yahaira Lopes 2022-08-28 2022-08-[id number] 11:15:00 11:15:00 Rj 09 Rafael 2022-08-19 2022-08-19 Ambulatory MHIE MNA [id number] Memoria 20:15:00 20:15:00 Pre-Reg Neurology 08 l Edgar Lopes 2022-08-19 2022-08-[address] [id number] 14:15:00 14:15:00 Rj 08 Rafael 2022-08-06 2022-08-06 Outpatient MHIE MHIE [id number] Memoria 14:30:00 14:30:00 08 yahaira Lopes 2022-08-19 2022-07-21 Ambulatory nullFlavo MNA [id number] Memoria 20:15:00 15:30:00 Pre-Reg r Neurology 08 l Edgar Fletcherann 2022-08-19 2022-07-[address] [facility] [id number] 14:15:00 10:30:00 Rj 08 Rafael 2022-07-18 2022-07-19 Outpt Diag nullFlavo [facility] [id number] Memoria 14:30:00 04:59:00 Services r Outpatient 00 l [facility] 2022-07-18 2022-07-18 Outpatient RISA MichaudOIP MHOIP [id number] 09:30:00 23:59:00 Juan 00 Nilsa 2022-06-03 2022-06-04 Outpatient nullFlavo MNA [id number] Memoria 20:30:00 04:59:59 r Neurology 07 l Edgar Lopes 2022-06-03 2022-06-[address] [id number] 15:30:00 23:59:59 Rj 07 Rafael 2022-06-03 2022-06-03 Outpatient MHIE MHIE [id number] Memoria 15:30:00 15:30:00 07 yahaira Lopes 2022-03-05 2022-03-05 Ambulatory nullFlavo MNA [id number] Memoria 16:00:00 16:00:00 Pre-Reg r Neurology 06 l Edgar Lopes 2022-03-05 2022-03-05 Outpatient MHIE MHIE [id number] Memoria 11:00:00 11:00:00 06 yahaira Lopes 2022-03-05 2022-03-05 Outpatient ERA ElkinsSCHER MISCHER [id number] 11:00:00 11:00:00 Rj 06 Rafael 2021-11-15 2021-11-15 Ambulatory nullFlavo MNA [id number] Memoria 20:15:00 20:15:00 Pre-Reg r Neurology 05 yahaira Lopes 2021-11-15 2021-11-[address] [facility] [id number] 14:15:00 14:15:00 Rj 05 Rafael 2021-10-31 2021-10-31 Outpatient MHIE MHIE [id number] Memoria 14:45:00 14:45:00 05 yahaira Lopes 2021-08-30 2021-08-31 Outpatient nullFlavo MNA [id number] Memoria 21:45:00 05:59:59 r Neurology 04 yahaira Lopes 2021-08-30 2021-08-[address] [facility] [id number] 15:45:00 23:59:59 Rj 04 Rafael 2021-08-30 2021-08-30 Outpatient MHIE MHIE [id number] Memoria 15:45:00 15:45:00 04 yahaira Lopes 2021-06-28 2021-06-29 Outpatient nullFlavo MNA [id number] Memoria 15:30:00 04:59:59 r Neurology 03 yahaira Lopes 2021-06-28 2021-06-28 Outpatient Brittni MHMISCHER MHMISCHER [id number] 10:30:00 23:59:59 Rj 03 Rafael 2021-06-28 2021-06-28 Outpatient MHIE MHIE [id number] Memoria 10:30:00 10:30:00 03 yahaira Lopes 2021-05-29 2021-05-30 Outpatient nullFlavo MNA [id number] Memoria 14:45:00 04:59:59 r Neurology 02 yahaira Orocovisizzy Fletcherann 2021-05-292021-05-29 Outpatient Brittni MHMISCHER MHMISCHER [id number] 09:45:00 23:59:59 Rj 02 Rafael 2021-05-29 2021-05-29 Outpatient MHIE MHIE [id number] Memoria 09:45:00 09:45:00 02 yahaira Lopes 2021-04-17 2021-04-18 Outpatient nullFlavo MNA [id number] Memoria 13:15:00 04:59:59 r Neurology 01 yahaira Hernández Moses 2021-04-17 2021-04-17 Outpatient Brittni RISAMISCHER MISCHER [id number] 08:15:00 23:59:59 Rj 01 Rafael 2021-04-17 2021-04-17 Outpatient MHIE MHIE [id number] Memoria 08:15:00 08:15:00 01 yahaira FletcherKell 2021-03-20 2021-03-21 Outpatient nullFlavo MNA [id number] Memoria 20:00:00 04:59:59 r Neurology 00 l Edgar Lopes 2021-03-20 2021-03-[address] [facility] [facility] [id number] 15:00:00 23:59:59 Rj 00 Rafael 2021-03-20 2021-03-20 Outpatient MHIE MHIE [id number] Memoria 15:00:00 15:00:00 00 yahaira Moses Results Test Description Test Time Test Comments Results Result Comments Source RADRPT 2022-07-18 22:05:22 Test Item Value Reference Range Interpretation Comme nts RADRPT (test code = RADRPT) PROCEDURE INFORMATION: Exam: US Retrope ritoneal; Complete; Kidneys and Bladder Exam date and time: 07/18/2022 10:16 AM Age: 32 years old Clinical indication: Chronic kidney disease, stage 3a; Additional info: /n18.31 TECHNIQUE: Imaging protocol: Real-time ultrasound of the retroperitoneum with image documentation. Complete exam focused on the kidneys and bladder. COMPARISON: No relevant prior studies available. FINDINGS: Right kidney: Normal echogenicity, size, and cortical thickness, measuring 12.4 x 6.6 x 7.6 cm. No stones. No hydronephrosis. Left kidney: Normal echogenicity, size, and cortical thickness, measuring 12.7 x 7.3 x 7.1 cm. No stones. No hydronephrosis. Urinary bladder: Unremarkable. IMPRESSION: Unremarkable kidneys and bladder. Tonja Cordova MD On 07/18/2022 17:04:32; [id number] [facility] [id number] 07:00:00 Test Item Value Reference Range Interpretation Comments CULTURE (BEAKER) (test No growth in 5 days code = 1095) BLOOD [id number] 07:00:00 Test Item Value Reference Range Interpretation Comments CULTURE (BEAKER) (test No growth in 5 days code = 1095) POCT-GLUCOSE [id number] 11:56:00 Test Item Value Reference Range Interpretation Comments POC-GLUCOSE METER 260 mg/dL 70-110 H : TESTED A T [facility] 6720 (BEAKER) (test code [facility], = 1538) 25507: Intelligence Agent/Techni lior ID = [id number] for KATLIN JUDD POCT-GLUCOSE [id number] 08:42:00 Test Item Value Reference Range Interpretation Comments POC-GLUCOSE METER 230 mg/dL 70-110 H : TESTED A T [facility] 6720 (BEAKER) (test code = [facility], 1538) 02822: Intelligence Agent/Techni lior ID = [id number] for YURI ROSARIO BASIC METABOLIC [id number] 04:48:00 Test Item Value Reference Range Interpretation [...] 1092) DATA TO CALCULA TE ESTIMATED GFR. Intelligence Agent ID - LUZMA [id number] 04:40:00 Test Item Value Reference Range Interpretation Comments MAGNESIUM (BEAKER) (test code = 2.1 mg/dL 1.6-2.6 627) Intelligence Agent ID - LUZMA WCBC W/PLT COUNT & AUTO [id number] 04:23:00 Test Item Value Reference Range Interpretation [...] (test code = 2801) MR, SPINE, CERVICAL, [id number] 01:07:00FINAL REPORT MRI Brain with and without contrast. MRI cervical spine with IV contrast. CLINICAL HISTORY: symmetric bilateral upper and lower extremity weakness; concern for centraldemyelinating process Technique: MRI of the brain utilizing axial T1, T2, FLAIR, GRE, DWI, sagittal T1; and postgadolinium axial, sagittal, and coronal T1-weighted images. Multiplanar multisequence MRIimages of the cervical spine obtained without and with IV contrast. Comparisons: None Findings:MRI brain:There is no abnormal intracranial enhancement or mass. There is no evidence of acute infarct or hemorrhage. There are no extra-axial fluid collections. The craniocervical junction is preserved. Themajor intracranial flow-voids appear patent. Mild paranasal sinus mucosal thickening. MRI cervical spine. There is no evidence of cord compression, signal abnormality or pathologic enhancement. Cervical vertebral bodies maintain normal height, alignment and signal intensity. No evidence of acute osseous fracture or suspicious osseous lesion. Intervertebral disc spaces are preserved. No high- grade central spinal canal or neural foraminal stenosis. IMPRESSION: No acute intracranial abnormality. No evidence of demyelinating plaque or pathologic enhancement. MR cervical spine without acute finding. No evidence of demyelinating plaque or pathologic enhancement. Signed: Rogerio Pruitt MDReport VerifiedDate/Time: 12/26/2019 01:07:39 ER [facility], BRAIN, [id number] 01:07:00FINAL REPORT MRI Brain with and without contrast. MRI cervical spine with IV contrast. CLINICAL HISTORY: symmetric bilateral upper and lower extremity weakness; concern for centraldemyelinating process Technique: MRI of the brain utilizing axial T1, T2, FLAIR, GRE, DWI, sagittal T1; and postgadolinium axial, sagittal, and coronal T1-weighted images. Multiplanar multisequence MRIimages of the cervical spine obtained without and with IV contrast. Comparisons: None Findings:MRI brain:There is no abnormal intracranial enhancement or mass. There is no evidence of acute infarct or hemorrhage. There are no extra-axial fluid collections. The craniocervical junction is preserved. Themajor intracranial flow-voids appear patent. Mild paranasal sinus mucosal thickening. MRI cervical spine. There is no evidence of cord compression, signal abnormality or pathologic enhancement. Cervical vertebral bodies maintain normal height, alignment and signal intensity. No evidence of acute osseous fracture or suspicious osseous lesion. Intervertebral disc spaces are preserved. No high-grade central spinal canal or neural foraminal stenosis. IMPRESSION: No acute intracranial abnormality. No evidence of demyelinating plaque or pathologic enhancement. MR cervical spine without acute finding. No evidence of demyelinating plaque or pathologic enhancement. Signed: Rogerio Pruitt MDRepsaint joseph [facility] west VerifiedDate/Time: 12/26/2019 01:07:39 POCT-GLUCOSE [id number] 21:02:00 Test Item Value Reference Range Interpretation Comments POC-GLUCOSE METER 301 mg/dL 70-110 H : TESTED A T [facility] 6720 ([employer]) (test code = [facility], 1538) 42602: Intelligence Agent/Techni lior ID = [id number] for DO VE, CHEAXELA POCT-GLUCOSE [id number] 17:01:00 Test Item Value Reference Range Interpretation Comments POC-GLUCOSE METER 183 mg/dL 70-110 H : TESTED A T [facility] 67[facility] ([employer] [place] (test code = [facility], 1538) 52737: Intelligence Agent/Techni lior ID = [id number] for AN DUNCANCARLIEJAMIE T4, [id number] 14:20:00 Test Item Value Reference Range Interpretation Comments FREE T4 ([employer]) (test code = 655) 0.99 ng/dL 0.70-1.48 Intelligence Agent ID - ROGER FTSH/FREE T4 IF [id number] 13:43:00 Test Item Value Reference Range Interpretation Comments THYROID STIMULATING HORMONE 0.35 uIU/mL 0.35-4.94 (BEAKER) (test code = 772) Intelligence Agent ID - ROGER FCREATINE KINASE (CK)2019-12-25 13:21:00 Test Item Value Reference Range Interpretation Comments CREATINE KINASE TOTAL (BEAKER) (test 105 U/L 29-200 code = 380) Intelligence Agent ID - ROGER FPOCT-GLUCOSE [id number] 12:59:00 Test Item Value Reference Range Interpretation Comments POC-GLUCOSE METER 261 mg/dL 70-110 H : TESTED A T [facility] 6720 (BEAKER) (test code = [facility], 1538) 76519: Intelligence Agent/Techni lior ID = [id number] for Mitzi Woodruff HEMOGLOBIN [id number] 08:42:00 Test Item Value Reference Range Interpretation Comments HEMOGLOBIN A1C (BEAKER) (test code = 13.2 % 4.3-6.1 H 368) POCT-GLUCOSE [id number] 07:47:00 Test Item Value Reference Range Interpretation Comments POC-GLUCOSE METER 266 mg/dL 70-110 H : TESTED A T [facility] 6720 (BEAKER) (test code = [facility], 1538) 57087: Intelligence Agent/Techni lior ID = [id number] for JAMIE ARMAS BASIC METABOLIC [id number] 06:40:00 Test Item Value Reference Range Interpretation [...] 1092) DATA TO CALCULA TE ESTIMATED GFR. Intelligence Agent KENAN CORCORAN [id number] 06:33:00 Test Item Value Reference Range Interpretation Comments MAGNESIUM (BEAKER) (test code = 2.0 mg/dL 1.6-2.6 627) Intelligence Agent KENAN CORCORAN LHIV-1 ANTIGEN WITH HIV-1/2 [id number] 06:32:00 Test Item Value Reference Range Interpretation Comments HIV-1 ANTIGEN WITH HIV 1\T\2 Nonreactive Nonreactive ANTIBODY (2) (BEAKER) (test code = 2586) Intelligence Agent KENAN CORCORAN LCBC W/PLT COUNT & AUTO [id number] 05:58:00 Test Item Value Reference Range Interpretation [...] PERCENT (BEAKER) (test code = 2801) POCT-GLUCOSE [id number] 20:37:00 Test Item Value Reference Range Interpretation Comments POC-GLUCOSE METER 283 mg/dL 70-110 H : [facility] (test code = [facility], [facility]) 99248: Intelligence Agent/Techni lior ID = [id number] for DO VE, CHEKARA POCT-GLUCOSE [id number] 18:31:00 Test Item Value Reference Range Interpretation Comments POC-GLUCOSE METER 189 mg/dL 70-110 H : TESTED A T [facility] 6720 (BEAKER) (test code = [facility], [facility]) 53567: Intelligence Agent/Techni lior ID = [id number] for AK INSONU, DENA POCT-GLUCOSE [id number] 18:29:00 Test Item Value Reference Range Interpretation Comments POC-GLUCOSE METER 254 mg/dL 70-110 H : TESTED A T [facility] 6720 (BEAKER) (test code = [facility], [facility]) 04407: Intelligence Agent/Techni lior ID = [id number] for AK INSONU, DENA POCT-GLUCOSE [id number] 18:25:00 Test Item Value Reference Range Interpretation Comments POC-GLUCOSE METER 313 mg/dL 70-110 H : TESTED A T [facility] 6720 (BEAKER) (test code = [facility], [facility]) 00288: Intelligence Agent/Techni lior ID = [id number] for AK INSONU, DENA BASIC METABOLIC [id number] 15:32:00 Test Item Value Reference Range Interpretation [...] 1092) DATA TO CALCULA TE ESTIMATED GFR. Intelligence Agent ID - JORGE [id number] 07:49:00 Test Item Value Reference Range Interpretation Comments RPR SCREEN (BEAKER) (test code = Nonreactive Nonreactive 420) HEPATIC FUNCTION [id number] 07:25:00 Test Item Value Reference Range Interpretation [...] (test code = 14 U/L 6-55 347) Intelligence Agent ID - NILO [id number] 07:20:00 Test Item Value Reference Range Interpretation Comments PROCALCITONIN (BEAKER) (test code 0.21 ng/mL <0.05 H = 3036) SEPSIS RISK (ng/mL)Low: 0.05-0.50Intermediate: 0.51-2.00High: >=2.01TSH/FREE T4 IF [id number] 06:44:00 Test Item Value Reference Range Interpretation Comments THYROID STIMULATING HORMONE 0.36 uIU/mL 0.35-4.94 (BEAKER) (test code = 772) Intelligence Agent ID Jose SEGAL WVITAMIN B12 AND [id number] 06:44:00 Test Item Value Reference Range Interpretation Comments VITAMIN B12 (BEAKER) (test code = 329 pg/mL [id number]) FOLATE (BEAKER) (test code = 362) 8.8 ng/mL >=7.0 Intelligence Agent ID - LUZMA WBASIC METABOLIC [id number] 06:12:00 Test Item Value Reference Range Interpretation [...] 1092) DATA TO CALCULA TE ESTIMATED GFR. Intelligence Agent ID - NILO LCBC W/PLT COUNT & AUTO [id number] 06:10:00 Test Item Value Reference Range Interpretation [...] 0-1 PERCENT (BEAKER) (test code = 2801) [id number] 06:05:00 Test Item Value Reference Range Interpretation Comments MAGNESIUM (BEAKER) (test code = 1.8 mg/dL 1.6-2.6 627) Intelligence Agent ID - PIAYA LC-REACTIVE [id number] 06:05:00 Test Item Value Reference Range Interpretation Comments C-REACTIVE PROTEIN (BEAKER) (test 4.39 mg/dL 0.00-0.50 H code = 676) Intelligence Agent ID - NILO LLACTIC ACID, [id number] 05:44:00 Test Item Value Reference Range Interpretation Comments LACTATE BLOOD VENOUS (2) (BEAKER) 2.05 mmol/L 0.50-2.20 (test code = 2872) Intelligence Agent ID - NILO LPOCT-GLUCOSE [id number] 04:19:00 Test Item Value Reference Range Interpretation Comments POC-GLUCOSE METER 435 mg/dL 70-110 HH : TESTED A T BSC 6720 (BEAKER) (test code = [place], 1538) [address]: Intelligence Agent/Techni lior ID = [id number] for RA COCHRAN Notes Date/Time Note Provider Source 2022-07-18 09:53:00-00:00 PROCEDURE INFORMATION: HANNY Demarco Exam: US Retroperitoneal; Complete; Kidneys and Bladder Exam date and time: 07/18/2022 10:16 AM Age: 32 years old Clinical indication: Chronic kidney disease, stage 3a; Additional info: /n18.31 TECHNIQUE: Imaging protocol: Real-time ultrasound of the re troperitoneum with image documentation. Complete exam focused on the kidn eys and bladder. COMPARISON: No relevant prior studies available. FINDINGS: Right kidney: Normal echogen icity, size, and cortical thickness, measuring 12.4 x 6.6 x 7.6 cm. No stones. No hydronephrosis. Left kidney: Normal echogenicity, size, and cortical thickness, measuring 12.7 x 7.3 x 7.1 cm. No stones. No hydronephrosis. Urinary bladder: Unremarkable. IMPRESSION: Unremarkable kidneys and bladder. Tonja Cordova MD On 07/18/2022 17:04:32; -[facility] [id number]
[2023-03-20] MEDS ORDERED: MORPHINE 4 MG/ML SYR ONE ×3 (02:41→04:05)
[2023-03-20] MEDS ORDERED: KETOROLAC 30 MG/ML INJ ONE (02:42)
[2023-03-20] MEDS ORDERED: ONDANSETRON 4 MG/2 ML VIAL ONE (02:42)
[2023-03-20] MEDS ORDERED: NA CHLORIDE 0.9% 1,000 ML ONE (02:42)
[2023-03-20 03:05] LABS: Potassium 4.3 mEq/L (3.5-5.1)
--- NOTE | 2023-03-20 04:07 | EDPHYS ---
Physician Documentation [facility] Name: Parminder Smiley Age: 32 yrs Sex: Male : 1990 Arrival Date: 03/20/2023 Time: 02:10 Bed 6 Private MD: ED Physician Michel Chu HPI: 03/20 02:20 This 32 yrs old Male presents to ER via Unassigned with complaints of Foot sp4 Injury. 03:04 . sp4 03:58 32-year-old male presents with acute fall at home associated with moderate to severe sp4 left ankle pain and swelling. Patient states ankle is free-floating and he suspects a fracture. 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 Patient has history of chronic demyelinating polyneuropathy CIDP, insulin controlled diabetes mellitus as well. . 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 - Social history:: Smoking status: Patient denies any tobacco usage or history of. ROS: 04:00 MS/extremity: Positive for injury or acute deformity, of the anterior aspect of left sp4 ankle and dorsum of left foot. 04:00 Constitutional: Negative for fever, chills, and weight loss. 04:00 MS/Extremity: Positive for left ankle injury, swelling, pain, deformity Exam: 04:00 Constitutional: This is a well developed, well nourished patient who is awake, alert, sp4 and in no acute distress. Head/Face: Normocephalic, atraumatic. Eyes: Pupils equal round and reactive to light, extra-ocular motions intact. Lids and lashes normal. Conjunctiva and sclera are not injected. Cornea within normal limits. Periorbital areas with no swelling, redness, or edema. ENT: Nares patent. No nasal discharge, no septal abnormalities noted. Tympanic membranes are normal and external auditory canals are clear. Oropharynx with no redness, swelling, or masses, exudates, or evidence of obstruction, uvula midline. Mucous membranes moist. Neck: Trachea midline, no thyromegaly or masses palpated, and no cervical lymphadenopathy. Supple, full range of motion without nuchal rigidity, or vertebral point tenderness. Chest/axilla: Normal chest wall appearance and motion. Nontender with no deformity. No lesions are appreciated. Cardiovascular: Regular rate and rhythm with a normal S1 and S2. No gallops, murmurs, or rubs. Normal PMI, no JVD. No pulse deficits. Respiratory: Lungs have equal breath sounds bilaterally, clear to auscultation and percussion. No rales, rhonchi or wheezes noted. No increased work of breathing, no retractions or nasal flaring. Abdomen/GI: Soft, non-tender, with normal bowel sounds. No distension or tympany. No guarding or rebound. No evidence of tenderness throughout. Back: No spinal tenderness. No costovertebral tenderness. Skin: Warm, dry with normal turgor. Normal color with no rashes, no lesions, and no evidence of cellulitis. MS/ Extremity: Pulses equal, no cyanosis. There is a well-healed amputation site of the left second toe. There is a left dorsal foot diabetic pressure ulcer associated with some granulation tissue but still with some signs of active bleeding. There is left ankle swelling, redness, discoloration, pain tenderness without significant deformity. Pulses are preserved sensation is chronically diminished secondary to history of diabetic neuropathy. Patient not able to bear weight on the left foot. Neuro: Awake and alert, GCS 15, oriented to person, place, time, and situation. Cranial nerves II-XII grossly intact. Motor strength 5/5 in all extremities. Sensory grossly intact. Psych: Awake, alert, with orientation to person, place and time. Behavior, mood, and affect are within normal limits Vital Signs: 02:27 BP 215 / 120; Pulse 74; Resp 18; Temp 97.7(TE); Pulse Ox 100% on R/A; Weight 122.47 kg as6 (R); Height 6 ft. 2 in. (R); 04:00 BP 179 / 98; Pulse 67; Resp 18; Pulse Ox 94% on R/A; kd3 02:27 Body Mass Index 34.67 (122.47 kg, 187.96 cm) as6 Procedures: 03:56 Splinting: Splint applied to left calf, left Achilles, left heel, medial aspect of left sp4 calf, left medial ankle, medial aspect of left foot, left bhatt and anterior aspect of left ankle using Orthoglass splint, applied by myself. Examined by me, post splint application: neurovascular intact, 2+ distal pulses palpable, brisk capillary refill noted, Patient tolerated well, Left lower leg bimalleolar ankle fracture with left distal fibula fracture, left posterior short leg fiberglass splint applied with an Ortho-Glass U strap applied as well.. No complications. MDM: 02:55 Patient medically screened. sp4 03:56 Differential diagnosis: fracture, sprain, arthritis, gout, cellulitis. Data reviewed: sp4 vital signs, nurses notes, lab test result(s), electrolytes, radiologic studies, plain films. Consideration of Admission/Observation Escalation of care including admission/observation considered. 04:00 ED course: Pain was controlled with IV morphine total of 12 mg. Patient was splinted sp4 reduction was not required. . ED course: Patient will be referred to the local orthopedist for an office appointment for unstable left ankle fracture associated with left distal fibula fracture and left ankle medial malleolus fracture. . ED course: We will provide, tramadol prescription also Flexeril prescription also high-dose ibuprofen prescription and referral to Dr. Dunn with orthopedic surgery. 03/20 02:26 Order name: BMP; Complete Time: 03:16 sp4 03/20 03:03 Order name: XRAY Ankle LEFT 3 view as6 03/20 03:03 Order name: XRAY Foot LEFT 3 View as6 03/20 03:03 Order name: Tib Fib Left XRAY sp4 03/20 02:27 Order name: Saline Lock; Complete Time: 02:49 sp4 03/20 03:56 Order name: Crutches; Complete Time: 04:09 sp4 Administered Medications: 02:49 Drug: morphine IVP or IV 4 mg Route: IVP; Infused Over: 4 mins; Site: right antecubital;kd3 03:59 Follow up: Response: No adverse reaction; Pain is unchanged, physician notified kd3 02:49 Drug: Ketorolac IVP 30 mg Route: IVP; Site: right antecubital; kd3 03:59 Follow up: Response: No adverse reaction; Pain is unchanged, physician notified kd3 02:49 Drug: Ondansetron IVP 4 mg Route: IVP; Site: right antecubital; kd3 04:00 Follow up: Response: No adverse reaction; Nausea is decreased kd3 02:49 Drug: NS 0.9% IV 1000 ml Route: IV; Rate: 1 bolus; Site: right antecubital; kd3 04:00 Follow up: IV Status: Completed infusion kd3 03:05 Drug: morphine IVP or IV 4 mg Route: IVP; Infused Over: 4 mins; Site: left antecubital; kd3 04:00 Follow up: Response: No adverse reaction; Pain is unchanged, physician notified kd3 03:59 Drug: morphine IVP or IV 4 mg Route: IVP; Infused Over: 4 mins; Site: right antecubital;kd3 04:23 Follow up: Response: No adverse reaction kd3 04:09 Drug: Ibuprofen PO 800 mg Route: PO; kd3 04:23 Follow up: Response: No adverse reaction; Pain is decreased kd3 04:09 Drug: Cyclobenzaprine PO 10 mg Route: PO; kd3 04:23 Follow up: Response: No adverse reaction kd3 Disposition Summary: 03/20/23 04:07 Discharge Ordered Location: Home sp4 Problem: new sp4 Symptoms: have improved sp4 Condition: Stable sp4 Diagnosis - Nondisplaced fracture of lateral malleolus of left fibula sp4 - Displaced fracture of medial malleolus of left tibia sp4 - Polyneuropathy, left distal fibula fracture, fracture of medial malleolus of the sp4 left tibia. Followup: sp4 - With: Win Dunn MD - When: 2 - 3 days - Reason: Recheck today's complaints Discharge Instructions: - Discharge Summary Sheet sp4 - Tibial and Fibular Fractures sp4 Forms: - [facility]Portal[facility][email or web address].htm sp4 Prescriptions: - Ibuprofen 600 mg Oral Tablet - take 1 tablet by ORAL route every 6 hours As needed take with food; 30 tablet; sp4 Refills: 0, Product Selection Permitted - Cyclobenzaprine 10 mg Oral Tablet - take 1 tablet by ORAL route every 8 hours As needed; 30 tablet; Refills: 0, sp4 Product Selection Permitted - Tramadol 50 mg Oral Tablet - take 1 tablet by ORAL route every 8 hours as needed; 20 tablet; Refills: 0, sp4 Product Selection Permitted - promethazine 25 mg Oral Tablet - take 1 tablet by ORAL route every 6 hours As needed PRN nausea; 30 tablet; sp4 Refills: 0, Product Selection Permitted Signatures: Dispatcher [employer] Julio Contreras RN RN as6 Laura Styles RN RN kd3 Michel Chu MD MD sp4
--- NOTE | 2023-03-20 04:07 | ER ---
Nurse's Notes [facility] Name: Parminder Smiley Age: 32 yrs Sex: Male : 1990 Arrival Date: 03/20/2023 Time: 02:10 Bed 6 Private MD: Diagnosis: Nondisplaced fracture of lateral malleolus of left fibula;Displaced fracture of medial malleolus of left tibia;Polyneuropathy, left distal fibula fracture, fracture of medial malleolus of the left tibia. Presentation: 03/20 02:27 Chief complaint: Patient states: "I have foot drop and I twisted my foot". Coronavirus as6 screen: At this time, the client does not indicate any symptoms associated with coronavirus-19. Ebola Screen: No symptoms or risks identified at this time. Initial Sepsis Screen: Does the patient meet any 2 criteria? No. Patient's initial sepsis screen is negative. Does the patient have a suspected source of infection? No. Patient's initial sepsis screen is negative. Risk Assessment: Do you want to hurt yourself or someone else? Patient reports no desire to harm self or others. Onset of symptoms was March 20, 2023. 02:27 Acuity: REYMUNDO 3 as6 02:27 Method Of Arrival: Wheelchair as6 Triage Assessment: 04:02 General: Appears uncomfortable, Behavior is calm, cooperative. Injury Description: kd3 Deformity sustained to anterior aspect of left ankle. 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 - Social history:: Smoking status: Patient denies any tobacco usage or history of. Screenin:02 [facility] ED Fall Risk Assessment (Adult) History of falling in the last 3 months, kd3 including since admission No falls in past 3 months (0 pts) Confusion or Disorientation No (0 pts) Intoxicated or Sedated No (0 pts) Impaired Gait Yes (1 pt) Mobility Assist Device Used No (0 pt) Altered Elimination No (0 pt) Score/Fall Risk Level 0 - 2 = Low Risk Maintained a safe environment. Abuse screen: Denies threats or abuse. Denies injuries from another. Nutritional screening: No deficits noted. Tuberculosis screening: No symptoms or risk factors identified. Assessment: 04:01 Pain: Complains of pain in left medial ankle. Neuro: Level of Consciousness is awake, kd3 alert, obeys commands, Oriented to person, place, time, situation. Respiratory: Airway is patent Trachea midline Respiratory effort is even, unlabored, Respiratory pattern is regular, symmetrical. Musculoskeletal: Bony deformity noted of anterior aspect of left ankle Swelling present in anterior aspect of left ankle. Vital Signs: 02:27 BP 215 / 120; Pulse 74; Resp 18; Temp 97.7(TE); Pulse Ox 100% on R/A; Weight 122.47 kg as6 (R); Height 6 ft. 2 in. (R); 04:00 BP 179 / 98; Pulse 67; Resp 18; Pulse Ox 94% on R/A; kd3 02:27 Body Mass Index 34.67 (122.47 kg, 187.96 cm) as6 ED Course: 02:13 Patient arrived in ED. ag3 02:20 Michel Chu MD is Attending Physician. sp4 02:27 Arm band placed on. as6 02:29 Triage completed. as6 02:30 Laura Styles, ALLYSSA is Primary Nurse. kd3 02:49 BMP Sent. kd3 03:30 XRAY Ankle LEFT 3 view In Process Unspecified. EDMS 03:30 XRAY Foot LEFT 3 View In Process Unspecified. EDMS 03:30 Tib Fib Left XRAY In Process Unspecified. EDMS 04:02 Patient has correct armband on for positive identification. Bed in low position. Call kd3 light in reach. 04:05 Win Dunn MD is Referral Physician. sp4 04:22 No provider procedures requiring assistance completed. IV discontinued, intact, kd3 bleeding controlled, No redness/swelling at site. Pressure dressing applied. Administered Medications: 02:49 Drug: morphine IVP or IV 4 mg Route: IVP; Infused Over: 4 mins; Site: right antecubital;kd3 03:59 Follow up: Response: No adverse reaction; Pain is unchanged, physician notified kd3 02:49 Drug: Ketorolac IVP 30 mg Route: IVP; Site: right antecubital; kd3 03:59 Follow up: Response: No adverse reaction; Pain is unchanged, physician notified kd3 02:49 Drug: Ondansetron IVP 4 mg Route: IVP; Site: right antecubital; kd3 04:00 Follow up: Response: No adverse reaction; Nausea is decreased kd3 02:49 Drug: NS 0.9% IV 1000 ml Route: IV; Rate: 1 bolus; Site: right antecubital; kd3 04:00 Follow up: IV Status: Completed infusion kd3 03:05 Drug: morphine IVP or IV 4 mg Route: IVP; Infused Over: 4 mins; Site: left antecubital; kd3 04:00 Follow up: Response: No adverse reaction; Pain is unchanged, physician notified kd3 03:59 Drug: morphine IVP or IV 4 mg Route: IVP; Infused Over: 4 mins; Site: right antecubital;kd3 04:23 Follow up: Response: No adverse reaction kd3 04:09 Drug: Ibuprofen PO 800 mg Route: PO; kd3 04:23 Follow up: Response: No adverse reaction; Pain is decreased kd3 04:09 Drug: Cyclobenzaprine PO 10 mg Route: PO; kd3 04:23 Follow up: Response: No adverse reaction kd3 Medication: 04:01 VIS not applicable for this client. kd3 Outcome: 04:07 Discharge ordered by . sp4 04:22 Discharged to home via wheelchair, with family. kd3 04:22 Condition: stable 04:22 Discharge instructions given to patient, Instructed on discharge instructions, follow up and referral plans. Demonstrated understanding of instructions, follow-up care, medications, Prescriptions given X 4. 04:23 Patient left the ED. kd3 Signatures: Dispatcher [employer] EDMS Yuliya Barboza 3 Julio Poon RN RN as6 Laura Styles RN RN kd3 Michel Chu MD MD sp4
[2023-03-20] MEDS ORDERED: IBUPROFEN 400 MG TAB ONE (04:13)
[2023-03-20] MEDS ORDERED: CYCLOBENZAPRINE 10 MG TAB ONE (04:13)
[2023-03-20 04:28] VITALS: TEMP 97.7
[2023-03-20 04:29] VITALS: BP 179/98; O2SAT 94
--- NOTE | 2023-03-20 13:20 | RAD REPORT ---
EXAM DESCRIPTION: RAD - Ankle Left 3 View - 03/20/2023 3:28 am CLINICAL HISTORY: 32 years Male, TIBIAL FRACTURE COMPARISON: None. FINDINGS/IMPRESSION: 1. Comminuted displaced medial malleolus and distal fibula fractures with widen ing of the tibiofibular joint and lateral clear space. 2. Comminuted, nondisplaced posterior tibial fracture. 3. Lucency projecting over the cuneiform seen only on the lateral view is probably artifact, however a nondisplaced fracture cannot be completely excluded. This can be further evaluated with CT. 4. Cortical irregularity of the fibula head posteriorly seen only on the lateral view suspicious for nondisplaced fracture. 5. Prior resection of the second toe at the level of the metatarsophalangeal joint. 6. Severe first interphalangeal joint degenerative changes. 7. Diffuse ankle soft tissue swelling. Electronically signed by: Wilbert Cutler MD 03/20/2023 4:34 AM CDT Due to temporary technical issues with the PACS/Fluency reporting system, reports are being signed by the in house radiologist without review as a courtesy to ensure prompt reporting. The interpreting r adiologist is fully responsible for the content of the report.
--- NOTE | 2023-03-20 13:22 | RAD REPORT ---
EXAM DESCRIPTION: RAD - Tib Fib Left - 03/20/2023 3:28 am CLINICAL HISTORY: 32 years Male, TIBIAL FRACTURE COMPARISON: None. FINDINGS/IMPRESSION: 1. Comminuted displaced medial malleolus and distal fibula fractures with widen ing of the tibiofibular joint and lateral clear space. 2. Comminuted, nondisplaced posterior tibial fracture. 3. Lucency projecting over the cuneiform seen only on the lateral view is probably artifact, however a nondisplaced fracture cannot be completely excluded. This can be further evaluated with CT. 4. Cortical irregularity of the fibula head posteriorly seen only on the lateral view suspicious for nondisplaced fracture. 5. Prior resection of the second toe at the level of the metatarsophalangeal joint. 6. Severe first interphalangeal joint degenerative changes. 7. Diffuse ankle soft tissue swelling. Electronically signed by: Wilbert Cutler MD 03/20/2023 4:34 AM CDT Due to temporary technical issues with the PACS/Fluency reporting system, reports are being signed by the in house radiologist without review as a courtesy to ensure prompt reporting. The interpreting r adiologist is fully responsible for the content of the report.
== END 2023-03-20 04:23 | disposition home or self-care (01) ==
LOC: ER 02:10
PROC: 2W3MX1Z Immobilization of Left Lower Extremity using Splint (ICD-10-PCS; principal; 2023-03-20)
DX: S82.65XA Nondisplaced fracture of lateral malleolus of left fibula, initial encounter for closed fracture (principal); S82.52XA Displaced fracture of medial malleolus of left tibia, initial encounter for closed fracture; G62.9 Polyneuropathy, unspecified; I10 Essential (primary) hypertension; E11.9 Type 2 diabetes mellitus without complications
CPT/HCPCS: 80048; 36415; 73630; 73590; 73610; 99284; 29515; J2405; J7030

== ENCOUNTER 2023-10-20 09:03 | Day surgery (SDC) | payer BC ==
[2023-10-20 09:43] VITALS: BMI 37.2
--- NOTE | 2023-10-20 09:54 | RAD REPORT ---
EXAM DESCRIPTION: Teenat Single View10/20/2023 9:44 am CLINICAL HISTORY: PICC LINE PLACEMENT COMPARISON: Chest Single View dated 08/31/2021; Chest Single View dated 12/23/2019; Chest Single View dated 05/11/2019; Chest Single View dated 07/24/2018 TECHNIQUE: Portable AP view of the chest. FINDINGS: Right arm PICC in place with catheter tip projecting over the distal SVC. The lungs are cl ear. No pneumothorax or effusion. The cardiomediastinal contours are unremarkable. IMPRESSION: Satisfactory right arm PICC placement. No acute cardiopulmonary process.
[2023-10-20 10:25] VITALS: BP 160/78; TEMP 98.2; O2SAT 99
[2023-10-20] MEDS ORDERED: ATROPINE SULFATE 1 MG/ML INJ ONE (11:51)
== END 2023-10-20 09:50 | disposition home or self-care (01) ==
LOC: DS 09:03 → EDSTATUS 15:08
PROVIDERS: ATTEND Internal Medicine
DX: M86.9 Osteomyelitis, unspecified (principal)
CPT/HCPCS: 36556; 71045; J0461

== ENCOUNTER 2024-12-25 23:58 | Emergency (ER) | payer BC ==
[2024-12-25] MEDS ORDERED: ATROPINE SULF 1 MG/10 ML SYR IV ONE (23:59)
[2024-12-25] MEDS ORDERED: NA CHLORIDE 0.9% 1,000 ML IV ONE (23:59)
[2024-12-25] MEDS ORDERED: Calcium Chloride 10% INJ SYR IV ONE (23:59)
[2024-12-25] MEDS ORDERED: EPINEPHrine 1 MG/10 ML SYR IV ONE (23:59)
[2024-12-26] MEDS ORDERED: VANCOMYCIN 1 GM/VIAL ONE (00:37)
[2024-12-26] MEDS ORDERED: NOREPINEPHRINE BITARTRATE/D5W 4 MG/250 ML BAG IV ONE (00:38)
[2024-12-26] MEDS ORDERED: NA CHLORIDE 0.9% 250 ML ONE (00:38)
[2024-12-26] MEDS ORDERED: PIPERACIL/TAZO 3.375 GM VIAL IV ONE (00:38)
[2024-12-26] MEDS ORDERED: NA CHLORIDE 0.9% 100 ML ONE (00:38)
[2024-12-26] MEDS ORDERED: NA CHLORIDE 0.9% 1,000 ML ONE (00:38)
[2024-12-26] MEDS ORDERED: D5W 1,000 ML IV ONE (00:59)
[2024-12-26] MEDS ORDERED: SODIUM BICARB 50 MEQ/50ML VIAL ONE (01:01)
[2024-12-26 01:47] LABS: Protime INR 1.52
[2024-12-26 01:48] LABS: Absolute Basophils 0.2 K/uL (0-0.5); Absolute Eosinophils 1.1 K/uL (0-0.5); Absolute Lymphocytes (CBC) 3.3 K/uL (0.7-4.9); Absolute Monocytes 0.9 K/uL (0.1-1.3); Absolute Neutrophil 18.6 K/uL (1.8-8.0); Basophils % 0.9 % (0-1.3); Eosinophils % 4.7 % (0-4.4); Hematocrit 29.5 % (39.6-49.0); Hemoglobin 8.8 g/dL (13.6-17.9); Lymphocytes % 13.8 % (15.3-44.8); MCH 26.5 pg (27.0-35.0); MCHC 29.9 g/dL (32.0-36.0); MCV 88.4 fL (80-100); Monocytes % 3.9 % (3.3-12.3); Neutrophils % 76.7 % (41.7-73.7); Nucleated RBC Absolute Count 0.1 (0-0); Nucleated Red Blood Cells % 0.3 % (0-0); Platelets 294 thou/uL (152-406); RBC Red Blood Cell Count 3.34 M/uL (4.33-5.43); Red Cell Distribution Width 19.3 % (12.1-15.2)
[2024-12-26 01:55] LABS: Renal Epithelial <5 /HPF (None Seen); Specific Gravity 1.016 (1.005-1.030); Sqamous Epithelial <5 /HPF (None Seen); Urine Bacteria None Seen /HPF (<20); Urine Bilirubin NEGATIVE (Negative); Urine Blood 1+ (Negative); Urine Clarity Extremely Turbid (Clear); Urine Color Light-Yellow (Yellow); Urine Culture Reflex Order REFLEXED; Urine Glucose 2+ (Negative); Urine Ketones NEGATIVE (Negative); Urine Microscopic Reflex YN ORDER UMIC; Urine Mucus Slight /HPF (None Seen); Urine Nitrite NEGATIVE (Negative); Urine Protein 3+ (Negative); Urine Urobilinogen Normal (Normal); Urine WBC Clump Rare /HPF (None Seen)
[2024-12-26 02:05] LABS: Arterial Blood Carboxyhemoglob 63.1 % (0-1.5); Blood Gas Oxyhemoglobin 63.1 % (94-97)
[2024-12-26 02:06] LABS: Blood Gas THB 8.4 g/dl (12-18)
[2024-12-26 02:26] LABS: ALT/SGPT 1698 U/L (16-61); AST/SGOT 3390 U/L (15-37); Albumin 1.6 g/dL (3.4-5.0); Albumin/Globulin Ratio 0.3 (1.1-1.8); Alkaline Phosphatase 155 U/L (45-117); Anion Gap 29.4 mEq/L (5.0-15.0); BUN Blood Urea Nitrogen 102 mg/dL (7-18); Bilirubin Total 0.5 mg/dL (0.2-1.0); Glomerular Filtration Rate 10 ml/min (=/>90); Glucose Level 166 mg/dL (74-106); Lipase 16 U/L (13-75); NT PRO-BNP 38859 pg/mL (<125); Potassium 4.4 mEq/L (3.5-5.1); Protein, Total 6.6 g/dL (6.4-8.2); Sodium Level 136 mEq/L (136-145); Troponin High Sensitivity 31.5 pg/mL (<58.9)
[2024-12-26 02:28] LABS: Bilirubin Direct < 0.2 mg/dL (0-0.2); Bilirubin Indirect, Calculated 0.3 mg/dL (0.2-0.8)
[2024-12-26 02:29] LABS: Bicarbonate < 8 mEq/L (21-32)
--- NOTE | 2024-12-26 02:29 | ER ---
Nurse's Notes [facility] Name: Parminder Smiley Age: 34 yrs Sex: Male : 1990 Arrival Date: 12/25/2024 Time: 23:58 Bed 2 Private MD: Diagnosis: Acute respiratory failure;Combined systolic (congestive) and diastolic (congestive) heart failure;Acidosis;Cardiac arrhythmia, unspecified;Cardiac arrest due to other underlying condition;Obesity, unspecified;Anemia, unspecified;Acute kidney failure, unspecified;Elevated white blood cell count Presentation: 12/25 23:55 Chief complaint: Patient states: PER PT'S PT HADN'T BEEN FEELING GOOD THE LAST br2 COUPLE OF DAYS, BREATHING DIFFERENT. PT WENT TO BED AND FOUND HIM AT 2318 IN BED NOT BREATHING. FAMILY DID NOT START CPR, EMS ARRIVED WITHIN 2-3 MINUTES. PT ARRIVED TO ER CPR IN PROGRESS AND HAMLET IN PLACE. NO PULSE. Coronavirus screen: Client denies travel out of the [place] in the last 14 days. Coronavirus screen: Client denies travel out of the [place] in the last 14 days. At this time, unable to obtain information related to travel outside the [place] Ebola Screen: Unable to complete the Ebola screening because: Patient is intubated. Onset of symptoms is unknown. 23:55 Method Of Arrival: EMS: [facility] br2 23:55 Acuity: REYMUNDO 1 br2 23:55 Care prior to arrival: Medication(s) given: 3 amps epi Glucose check: 210 IO L tibial al5 tuberosity. 23:55 Compressions began prior to arrival. al5 12/26 00:35 Initial Sepsis Screen: Does the patient meet any 2 criteria? No. Patient's initial al5 sepsis screen is negative. Does the patient have a suspected source of infection? No. Patient's initial sepsis screen is negative. Risk Assessment: Do you want to hurt yourself or someone else? Unable to obtain. Triage Assessment: 00:20 General: Appears. 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 - Social history:: Smoking status: Patient denies any tobacco usage or history of. Patient/guardian denies using alcohol, street drugs. Screenin:30 Abuse screen: Denies threats or abuse. Denies injuries from another. Nutritional al5 screening: No deficits noted. Tuberculosis screening: No symptoms or risk factors identified. 00:37 [facility] ED Fall Risk Assessment (Adult) History of falling in the last 3 months, al5 including since admission No falls in past 3 months (0 pts) Confusion or Disorientation Yes (5 pts) Intoxicated or Sedated Yes (3 pts) Impaired Gait Yes (1 pt) Mobility Assist Device Used Yes (1 pt) Altered Elimination Yes (1 pt) Score/Fall Risk Level 3 or more points = High Risk Maintained a safe environment, Hourly rounding (assess needs \T\ fall precautionary measures) done. Assessment: 12/25 23:55 CPR assessment: unresponsive, no respiratory effort, intubated, Ambu ventilation, pale. al5 Cardiac rhythm is PEA. General: Appears obese, Behavior is unresponsive. Neuro: Level of Consciousness is unresponsive, Oriented to none. EENT: No deficits noted. Cardiovascular: Rhythm is PEA. Respiratory: Airway via oral airway Respiratory effort is even, Ventilator assessment: patient intubated with michelle tube, ambu ventilation. 23:55 GI: Abdomen is non-distended, obese. : No deficits noted. Derm: Skin is intact. al5 Musculoskeletal: L BKA, wrap to R leg. 12/26 00:01 General: Appears obese, Behavior is unresponsive. Pain: Unable to use pain scale. al5 Patient is intubated. Patient is unresponsive. Neuro: Level of Consciousness is unresponsive, Oriented to none. Cardiovascular: Patient's skin is warm and dry. Rhythm is sinus rhythm. Respiratory: Airway via oral airway Respiratory effort is even, unlabored, Respiratory pattern is regular, symmetrical, Ventilator assessment: ET Tube: 7.5 24 cm at teeth Respiratory Rate: 18 FiO2: 100%. PEEP: 5 Breath sounds are clear bilaterally. GI: Abdomen is flat, non-distended, obese, Bowel sounds present X 4 quads. : No deficits noted. EENT: No deficits noted. Derm: Skin is intact, Skin is normal. Musculoskeletal: L BKA, R leg wrapped. 00:01 Reassessment: ROSC. sinus rhythm 84. al5 00:47 Reassessment: CPR initiated, MD at bedside. al5 00:53 Reassessment: ROSC. sinus tach 120. al5 02:07 General: Appears obese, Behavior is unresponsive. Pain: Unable to use pain scale. al5 Patient is intubated. Patient is unresponsive. Neuro: Level of Consciousness is unresponsive, Oriented to none. Cardiovascular: skin cool and dry. Rhythm is PEA. Respiratory: Airway via oral airway Respiratory pattern is apnea Ventilator assessment: ET Tube: 7.5 24 at teeth. GI: Abdomen is flat, non-distended, obese. : No deficits noted. : Chase in place to gravity drainage clamped. EENT: No deficits noted. Derm: Skin is intact, Skin is pale, Skin temperature is warm. Musculoskeletal: L BKA. 02:07 Reassessment: time of called by Dr. Lombardi. al5 02:21 Reassessment: Contacted [facility], pt not a candidate for tissue, organs, and skin due al5 to the history of cellulitis, having a BKA and toes amputated. Ref # [id number] Will call back if patient is a candidate for eye donation. 04:32 Reassessment: [facility] to release body to [facility] home and [facility]. vc1 Vital Signs: 12/25 23:55 Weight 149.69 kg; Height 6 ft. 2 in. ; br2 07 00:09 BP 203 / 80; Pulse 96; Resp 39; Pulse Ox 92% on ETT ambu; al5 00:15 BP 160 / 74; Pulse 87; Resp 22; Pulse Ox 85% on ETT ambu; al5 00:30 BP 111 / 46; Pulse 65; Resp 73; Pulse Ox 36% on ETT vent; al5 00:37 BP 82 / 38; Pulse 56; Resp 18; Pulse Ox 90% on ETT vent; al5 00:53 BP 250 / 131; Pulse 120; Resp 41; Pulse Ox 53% on ETT vent; al5 01:00 BP 213 / 87; Pulse 105; Resp 31; Pulse Ox 80% on ETT vent; al5 01:07 BP 126 / 62; Pulse 85; Resp 20; Pulse Ox 78% on ETT vent; al5 01:15 BP 90 / 48; Pulse 74; Resp 18; Pulse Ox 72% on ETT vent; al5 01:23 BP 94 / 50; Pulse 70; Resp 18; Pulse Ox 61% on ETT vent; al5 01:30 BP 108 / 51; Pulse 72; Resp 18; Pulse Ox 100% on ETT vent; al5 01:45 BP 75 / 38; Pulse 59; Resp 18; Pulse Ox 68% on ETT vent; al5 02:00 BP 37 / 19; Pulse 20; Resp 20; Temp 95.5(Ca); Pulse Ox 60% on ETT vent; al5 12/25 23:55 Body Mass Index 42.37 (149.69 kg, 187.96 cm) br2 ED Course: 12/25 23:57 Inserted saline lock: 18 gauge in left EJ, using aseptic technique. ,using aseptic al5 technique. done by Dr. Lombardi Blood collected. Flushed with 10 mL NS. 23:59 Patient arrived in ED. [email or web address] 12/26 00:00 Assisted provider with intubation using 7.5 mm ETT via oral route. ET tube secured at al5 24cm at the teeth. Set up intubation tray. Intubated by Ovidio Lombardi MD Placement verified by CO2 detector w/ + color change, auscultating bilateral breath sounds, Patient tolerated well. 00:18 NGT: inserted 16 Fr. via left nare. verified return of gastric contents, to al5 intermittent suction. Returned bile. Patient tolerated well. 00:19 Triage completed. br2 00:24 Ovidio Lombardi MD is Attending Physician. cp 00:32 Patient has correct armband on for positive identification. Bed in low position. al5 00:41 Assisted provider with central line placement. Set up central line tray. Triple lumen al5 line placed in left femoral. Line placed by Ovidio Lombardi MD Placement verified by blood return, Dressed with Tegaderm, Blood was collected. Patient tolerated well. Was handwashing/sanitizing done immediately prior to procedure? Yes. Was patient positioned to in a way to prevent air embolism? Yes. Was procedure site sterilized? Yes, with chlorhexidine. Was the site allowed to dry? Yes. Was local anesthetic and/or sedation utilized? No. During the procedure, did the Practitioner(s) maintain a sterile field? Yes. Were unused ports clamped during insertion? Yes. Was a 2nd qualified MD obtained after 3 unsuccessful insertion attempts? No. Was blood aspirated from each lumen? Yes. After the procedure, did the Practitioner(s) clean the site and apply a sterile dressing? Yes. 00:59 Chest Single View In Process Unspecified. EDMS 01:15 Sravani Saunders, RN is Primary Nurse. al5 02:[address] left in place. al5 02:13 called [place] [employer] talked to Radha. PD/dispatch will call [employer]. sp 02:26 Ovidio Lombardi MD is Pronouncing Provider. trevon Administered Medications: 02:38 Discontinued: norepinephrine0.1 mcg/kg/min IV at calculated rate See Administration al5 Instructions; (Standard concentration 4 mg / 250 mL D5W); Recommended max rate 3 mcg/kg/min; Titrate 0.05 mcg/kg/min as often as every 5 minutes to achieve goal (see titration policy); Goal parameter MAP greater than 65 mmHg. 02:37 Discontinued: ns 0.9% (30 ml/kg) 30 ml/kg IV at bolus once; Sepsis Protocol; to be al5 given as a bolus over 90 minutes 04 23:58 Drug: Calcium Chloride 1 grams IVP once Route: IVP; Site: left jugular; al5 12/26 00:05 Follow up: Response: No adverse reaction al5 12/25 23:59 Drug: EPINEPHrine 0.1mg/mL 1:10,000 1 mg IVP once Route: IVP; Site: left jugular; al5 12/26 00:05 Follow up: Response: No adverse reaction al5 12/25 23:59 Drug: Sodium Bicarbonate 1 amp IVP once; (50 mL); equals 50 mEq Route: IVP; Site: left al5 jugular; 12/26 00:05 Follow up: Response: No adverse reaction al5 00:02 Drug: NS 0.9% IV (30 ml/kg) 30 ml/kg IV at bolus once; Sepsis Protocol; to be given as al5 a bolus over 90 minutes Route: IV; Rate: bolus; Site: left jugular; 01:30 Follow up: IV Intake: 2000ml al5 00:41 Drug: Norepinephrine IV 0.1 mcg/kg/min IV at calculated rate See Administration al5 Instructions; (Standard concentration 4 mg / 250 mL D5W); Recommended max rate 3 mcg/kg/min; Titrate 0.05 mcg/kg/min as often as every 5 minutes to achieve goal (see titration policy); Goal parameter MAP greater than 65 mmHg. Route: IV; Rate: calculated rate; Site: left femoral; 00:47 Follow up: Response: No adverse reaction; Blood pressure is unchanged; Rate change 15 al5 mcg/min 00:58 Follow up: Response: No adverse reaction; Blood pressure is unchanged; Rate change 10 al5 mcg/min 00:58 Follow up: Response: No adverse reaction; Blood pressure is elevated; Rate change 5 al5 mcg/min 01:48 Follow up: Rate change 20 mcg/min al5 01:54 Follow up: Rate change 35 mcg/min al5 00:45 Drug: Atropine 1 mg IVP once Route: IVP; Site: left femoral; al5 01:00 Follow up: Response: No adverse reaction al5 00:46 Drug: Sodium Bicarbonate 1 amp IVP once; (50 mL); equals 50 mEq Route: IVP; Site: left al5 femoral; 01:00 Follow up: Response: No adverse reaction al5 00:46 Drug: Sodium Bicarbonate 1 amp IVP once; (50 mL); equals 50 mEq Route: IVP; Site: left al5 femoral; 01:00 Follow up: Response: No adverse reaction al5 00:46 Drug: Sodium Bicarbonate 1 amp IVP once; (50 mL); equals 50 mEq Route: IVP; Site: left al5 femoral; 01:00 Follow up: Response: No adverse reaction al5 00:46 Drug: Calcium Chloride 1 grams IVP once Route: IVP; Site: left femoral; al5 01:00 Follow up: Response: No adverse reaction al5 00:48 Drug: EPINEPHrine 0.1mg/mL 1:10,000 1 mg IVP once Route: IVP; Site: left femoral; al5 01:00 Follow up: Response: No adverse reaction al5 00:52 Drug: EPINEPHrine 0.1mg/mL 1:10,000 1 mg IVP once Route: IVP; Site: left femoral; al5 01:00 Follow up: Response: No adverse reaction al5 01:10 Drug: vancoMYCIN IVPB 1 grams IVPB once over 2 hrs Route: IVPB; Infused Over: 2 hrs; al5 Site: left femoral; 02:07 Follow up: IV Status: Order to discontinue infusion; Pt al5 01:16 Drug: Piperacillin-Tazobactam IVPB 3.375 grams IVPB once over 60 mins; (mix in NS 100 al5 mL) Route: IVPB; Infused Over: 60 mins; Site: left subclavian; 02:00 Follow up: IV Status: Completed infusion; IV Intake: 100ml al5 01:59 Not Given (Physician Discretion): chisbmpate10 mg IVP once; dilute with 10 mL 0.9% al5 NaCl; give over 2 minutes 02:02 CANCELLED (Duplicate Order): sodium bicarbonate1 amp IVP once; (50 mL); equals 50 mEq al5 02:02 CANCELLED (Duplicate Order): sodium bicarbonate1 amp IVP once; (50 mL); equals 50 mEq al5 02:11 Not Given (Hemodynamic Parameters): [id number] ml, sodium bicarbonate ivp 150 meq IV at al5 125 ml/hr continuous Medication: 00:37 VIS not applicable for this client. al5 Intake: 01:30 IV: 2000ml; Total: 2000ml. al5 02:00 IV: 100ml; Total: 2100ml. al5 Outcome: 02:07 Patient : Time of 02:07 Pronounced by Ovidio Lombardi MD al5 02:07 Outcome Patient al5 02:07 Condition: 05:43 Patient left the ED. vc1 Signatures: Dispatcher [employer] EDCO Ovidio Lombardi MD MD cha Pinkerton, Shawna sp Page, Corey, PA PA cp Jeffries, Jennifer jj6 Cammie Torres RN RN vc1 Sravani Saunders RN RN al5 Virginia Gabriel RN RN br2 Corrections: (The following items were deleted from the chart) 00:36 00:32 Inserted saline lock: 18 gauge in left EJ, using aseptic technique. ,using al5 aseptic technique. done by Dr. Lombardi Blood collected. Flushed with 10 mL NS al5 00:39 [id number] 23:55 Care prior to arrival: Medication(s) given: 3 amps epi IO L tibial al5 tuberosity al5 12/26 00:58 00:44 Response: No adverse reaction; Rate change 10 mcg/min in5 al5 01:00 00:46 Sodium Bicarbonate IVP 3 amp IVP in left jugular [facility] al5 01:01 00:46 Sodium Bicarbonate IVP 1 amp IVP in left jugular [facility]5 01:01 00:46 Sodium Bicarbonate IVP 1 amp IVP in left forearm [facility] al5 01:53 01:52 BP 75 / 38; Pulse 59bpm; Resp 18bpm; Pulse Ox 68% ET / Ventilator; [place] [id number] 02:13 02:07 Pain: Unable to use pain scale. Patient is intubated. Patient is unresponsive. al5al5 02:33 00:31 Outcome [place] [id number]
--- NOTE | 2024-12-26 02:29 | EDPHYS ---
Physician Documentation [facility] Name: Parminder Smiley Age: 34 yrs Sex: Male : 1990 Arrival Date: 12/25/2024 Time: 23:58 Bed 2 Private MD: ED Physician Ovidio Lombardi HPI: 12/26 01:10 This 34 yrs old Male presents to ER via EMS with complaints of CPR. trevon 01:10 Preceding the arrest, the patient collapsed. The arrest occurred at home. The patient trevon has not experienced similar symptoms in the past. 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 - Social history:: Smoking status: Patient denies any tobacco usage or history of. Patient/guardian denies using alcohol, street drugs. ROS: 01:23 Unable to obtain ROS due to patient is on ventilator, cpr in progress, [facility] Exam: 01:23 Head/face: Noted is pale. trevon 01:23 Eyes: Pupils: are fixed and dilated, :23 Cardiovascular: Rate: actual rate is 50 bpm, Rhythm: irregular, Pulses: not palpable, Heart sounds: no heart sounds, JVD: is noted bilaterally, to the angle of the jaw, :23 ECG was reviewed by the Attending Physician. 01:23 Respiratory: vent, jvd, rales, decreased bs, 01:23 Abdomen/GI: Inspection: distension, that is mild, Bowel sounds: diminished, Palpation: abdomen is soft and non-tender, Liver: no appreciated palpable abnormalities, Hernia: not appreciated, :23 Skin: Appearance: Color: pale, Temperature: cool, Moisture: normal moisture, cellulitis, is not appreciated, induration, is not appreciated, 01:54 ECG was reviewed by the Attending Physician. [facility] Vital Signs: 12/25 23:55 Weight 149.69 kg; Height 6 ft. 2 in. ; br2 12/26 00:09 BP 203 / 80; Pulse 96; Resp 39; Pulse Ox 92% on ETT ambu; al5 00:15 BP 160 / 74; Pulse 87; Resp 22; Pulse Ox 85% on ETT ambu; al5 00:30 BP 111 / 46; Pulse 65; Resp 73; Pulse Ox 36% on ETT vent; al5 00:37 BP 82 / 38; Pulse 56; Resp 18; Pulse Ox 90% on ETT vent; al5 00:53 BP 250 / 131; Pulse 120; Resp 41; Pulse Ox 53% on ETT vent; al5 01:00 BP 213 / 87; Pulse 105; Resp 31; Pulse Ox 80% on ETT vent; al5 01:07 BP 126 / 62; Pulse 85; Resp 20; Pulse Ox 78% on ETT vent; al5 01:15 BP 90 / 48; Pulse 74; Resp 18; Pulse Ox 72% on ETT vent; al5 01:23 BP 94 / 50; Pulse 70; Resp 18; Pulse Ox 61% on ETT vent; al5 01:30 BP 108 / 51; Pulse 72; Resp 18; Pulse Ox 100% on ETT vent; al5 01:45 BP 75 / 38; Pulse 59; Resp 18; Pulse Ox 68% on ETT vent; al5 02:00 BP 37 / 19; Pulse 20; Resp 20; Temp 95.5(Ca); Pulse Ox 60% on ETT vent; al5 12/25 23:55 Body Mass Index 42.37 (149.69 kg, 187.96 cm) br2 Procedures: 01:32 Intubation: Intubated orally using # 4 Garth blade with 7.5 mm ETT. was successful trevon on first attempt. Ventilated with Ambu bag. ventilator. Cricoid pressure applied during procedure. Tube secured at right side of mouth measured 23 cm at lip. Placement verified by CXR, CO2 detector with (+) color change, auscultating bilateral breath sounds, O2 saturation after procedure was 95 %. Patient tolerated well. Central Line: in the left femoral vein, in 1 attempts. placement was verified, by blood return, the site was dressed with using sterile technique, the patient tolerated the procedure, well. MDM: 00:59 Medical Screening Exam initiated trevon 01:30 Differential diagnosis: arrythmia, cardiac arrest, respiratory arrest, overdose, renal trevon failure. Differential Diagnosis altered mental status, sepsis, flu. Data reviewed: vital signs, nurses notes. Consideration of Admission/Observation Patient was admitted/placed on observation. Escalation of care including admission/observation considered. I considered the following discharge prescriptions or medication management in the emergency department Medications were administered in the Emergency Department. See MAR. Independent interpretation of the following test(s) in the Emergency Department EKG: See my EKG interpretation above. Test considered but Not performed: Ultrasound no echo. Care significantly affected by the following chronic conditions: Diabetes, Hypertension, Congestive Heart Failure, Obesity, Chronic Kidney Disease. 12/26 01:09 Order name: Basic Metabolic Panel [facility] 12/26 01:09 Order name: CBC with Diff [facility] 12/26 01:09 Order name: LFT's [facility] 12/26 01:09 Order name: Magnesium [facility] 12/26 01:09 Order name: NT PRO-BNP [facility] 12/26 01:09 Order name: PT-INR; Complete Time: 02:28 [facility] 12/26 01:09 Order name: Troponin HS [facility] 12/26 01:09 Order name: Lipase [facility] 12/26 01:09 Order name: Blood Culture Adult (2) [facility] 12/26 01:09 Order name: Lactate w/ 2H reflex if indic. [facility] 12/26 01:09 Order name: Urinalysis w/ reflexes; Complete Time: 02:28 [facility] 12/26 01:09 Order name: ABG; Complete Time: 02:28 [facility] 12/26 01:54 Order name: Manual Differential [facility] 12/26 01:58 Order name: Urine Culture [facility] 12/26 00:22 Order name: Chest Single View [facility] 12/26 01:09 Order name: Cardiac monitoring; Complete Time: :43 [facility] 12/26 01:09 Order name: EKG - Nurse/Tech; Complete Time: :44 [facility] 12/26 01:09 Order name: IV Saline Lock; Complete Time: :44 [facility] 12/26 01:09 Order name: Labs collected and sent; Complete Time: :43 [facility] 12/26 01:09 Order name: O2 Per Protocol; Complete Time: :43 [facility] 12/26 01:09 Order name: O2 Sat Monitoring; Complete Time: 01:43 [facility] 12/26 01:09 Order name: Central Line Kit; Complete Time: 01:11 [facility] 12/26 01:09 Order name: Central Line Dressing Kit; Complete Time: 01:11 trevon EC:54 Rate is 74 beats/min. Rhythm is regular. QRS [place] is Normal. [place] interval is normal. QRS trevon interval is normal. QT interval is normal. No Q waves. T waves are Normal. No ST changes noted. Clinical impression: NSR w/ Non-specific ST/T Changes. Interpreted by me. Reviewed by me. Administered Medications: 02:38 Discontinued: norepinephrine0.1 mcg/kg/min IV at calculated rate See Administration al5 Instructions; (Standard concentration 4 mg / 250 mL D5W); Recommended max rate 3 mcg/kg/min; Titrate 0.05 mcg/kg/min as often as every 5 minutes to achieve goal (see titration policy); Goal parameter MAP greater than 65 mmHg. 02:37 Discontinued: ns 0.9% (30 ml/kg) 30 ml/kg IV at bolus once; Sepsis Protocol; to be al5 given as a bolus over 90 minutes 12/25 23:58 Drug: Calcium Chloride 1 grams IVP once Route: IVP; Site: left jugular; al5 12/26 00:05 Follow up: Response: No adverse reaction al5 12/25 23:59 Drug: EPINEPHrine 0.1mg/mL 1:10,000 1 mg IVP once Route: IVP; Site: left jugular; al5 12/26 00:05 Follow up: Response: No adverse reaction al5 12/25 23:59 Drug: Sodium Bicarbonate 1 amp IVP once; (50 mL); equals 50 mEq Route: IVP; Site: left al5 jugular; 12/26 00:05 Follow up: Response: No adverse reaction al5 00:02 Drug: NS 0.9% IV (30 ml/kg) 30 ml/kg IV at bolus once; Sepsis Protocol; to be given as al5 a bolus over 90 minutes Route: IV; Rate: bolus; Site: left jugular; 01:30 Follow up: IV Intake: 2000ml al5 00:41 Drug: Norepinephrine IV 0.1 mcg/kg/min IV at calculated rate See Administration al5 Instructions; (Standard concentration 4 mg / 250 mL D5W); Recommended max rate 3 mcg/kg/min; Titrate 0.05 mcg/kg/min as often as every 5 minutes to achieve goal (see titration policy); Goal parameter MAP greater than 65 mmHg. Route: IV; Rate: calculated rate; Site: left femoral; 00:47 Follow up: Response: No adverse reaction; Blood pressure is unchanged; Rate change 15 al5 mcg/min 00:58 Follow up: Response: No adverse reaction; Blood pressure is unchanged; Rate change 10 al5 mcg/min 00:58 Follow up: Response: No adverse reaction; Blood pressure is elevated; Rate change 5 al5 mcg/min 01:48 Follow up: Rate change 20 mcg/min al5 01:54 Follow up: Rate change 35 mcg/min al5 00:45 Drug: Atropine 1 mg IVP once Route: IVP; Site: left femoral; al5 01:00 Follow up: Response: No adverse reaction al5 00:46 Drug: Sodium Bicarbonate 1 amp IVP once; (50 mL); equals 50 mEq Route: IVP; Site: left al5 femoral; 01:00 Follow up: Response: No adverse reaction al5 00:46 Drug: Sodium Bicarbonate 1 amp IVP once; (50 mL); equals 50 mEq Route: IVP; Site: left al5 femoral; 01:00 Follow up: Response: No adverse reaction al5 00:46 Drug: Sodium Bicarbonate 1 amp IVP once; (50 mL); equals 50 mEq Route: IVP; Site: left al5 femoral; 01:00 Follow up: Response: No adverse reaction al5 00:46 Drug: Calcium Chloride 1 grams IVP once Route: IVP; Site: left femoral; al5 01:00 Follow up: Response: No adverse reaction al5 00:48 Drug: EPINEPHrine 0.1mg/mL 1:10,000 1 mg IVP once Route: IVP; Site: left femoral; al5 01:00 Follow up: Response: No adverse reaction al5 00:52 Drug: EPINEPHrine 0.1mg/mL 1:10,000 1 mg IVP once Route: IVP; Site: left femoral; al5 01:00 Follow up: Response: No adverse reaction al5 01:10 Drug: vancoMYCIN IVPB 1 grams IVPB once over 2 hrs Route: IVPB; Infused Over: 2 hrs; al5 Site: left femoral; 02:07 Follow up: IV Status: Order to discontinue infusion; Pt al5 01:16 Drug: Piperacillin-Tazobactam IVPB 3.375 grams IVPB once over 60 mins; (mix in NS 100 al5 mL) Route: IVPB; Infused Over: 60 mins; Site: left subclavian; 02:00 Follow up: IV Status: Completed infusion; IV Intake: 100ml al5 01:59 Not Given (Physician Discretion): [id number] mg IVP once; dilute with 10 mL 0.9% al5 NaCl; give over 2 minutes 02:02 CANCELLED (Duplicate Order): sodium bicarbonate1 amp IVP once; (50 mL); equals 50 mEq al5 02:02 CANCELLED (Duplicate Order): sodium bicarbonate1 amp IVP once; (50 mL); equals 50 mEq al5 02:11 Not Given (Hemodynamic Parameters): [id number] ml, sodium bicarbonate ivp 150 meq IV at al5 125 ml/hr continuous Disposition: :33 Critical Care:. trevon Disposition Summary: 12/26/24 02:28 Patient Notes: Location: [facility] trevon Pronouncing Physician: Ovidio Lombardi cha Time of : 02:07 12/26/2024 trevon Diagnosis - Acute respiratory failure trevon - Combined systolic (congestive) and diastolic (congestive) heart failure trevon - Acidosis trevon - Cardiac arrhythmia, unspecified trevon - Cardiac arrest due to other underlying condition trevon - Obesity, unspecified trevon - Anemia, unspecified trevon - Acute kidney failure, unspecified trevon - Elevated white blood cell count trevon Critical care time excluding procedures: :33 Critical care time: Bedside Care: 60 minutes, Consultation: 15 minutes, Family trevon Intervention: 15 minutes. Total time: 90 minutes Signatures: Dispatcher [employer] EDOvidio Dyer MD MD cha Langhorst, Amanda, RN RN al5 Virginia Gabriel RN RN br2 Corrections: (The following items were deleted from the chart) 01:10 01:10 BASIC METABOLIC PANEL+C.LAB.BRZ ordered. EDMS EDMS 01:10 01:10 CBC+H.LAB.BRZ ordered. EDMS EDMS 01:10 01:10 HEPATIC FUNCTION+C.LAB.BRZ ordered. EDMS EDMS 01:10 01:10 MAGNESIUM+C.LAB.BRZ ordered. EDMS EDMS 01:10 01:10 PROBNP+C.LAB.BRZ ordered. EDMS EDMS 01:10 01:10 PROTIME (+INR)+COAG.LAB.BRZ ordered. EDMS EDMS 01:10 01:10 Troponin High Sensitivity+C.LAB.BRZ ordered. EDMS EDMS 01:10 01:10 LIPASE+C.LAB.BRZ ordered. EDMS EDMS 01:10 01:10 BLOOD CULTURE*+BA.LAB.BRZ ordered. EDMS EDMS 01:10 01:10 LACTATE+C.LAB.BRZ ordered. EDMS EDMS 01:10 01:10 Urinalysis+U.LAB.BRZ ordered. EDMS EDMS 01:10 01:10 Chest Single View+RAD.RAD.BRZ ordered. EDMS EDMS 01:10 01:10 Head C Spine Cap Wo Con+CT.RAD.BRZ ordered. EDMS EDMS 01:10 01:10 Arterial Blood Gas+RC.LAB.BRZ ordered. EDMS EDMS 01:10 01:10 Arterial Blood Gas+RC.LAB.BRZ ordered. EDMS EDMS 02:02 01:09 Sodium Bicarbonate IVP 1 amp IVP once; (50 mL); equals 50 mEq ordered. trevon al5 02:02 01:09 Sodium Bicarbonate IVP 1 amp IVP once; (50 mL); equals 50 mEq ordered. trevon al5 02:47 01:40 Chest Abd Pelvis Wo Con ordered. EDMS EDMS 02:47 01:41 Head C Spine Mpr Wo Con ordered. EDMS EDMS
[2024-12-26 03:07] LABS: Band Neutrophils 12 % (0-1); Differential Total Cells Count 100; Eosinophils 10 % (0-3); Lymphocytes 20 % (15-42); Metamyelocytes 3 % (0-0); Monocytes 2 % (0-10); Myelocytes 2 % (0-0); Nucleated Red Blood Cells 3 /100WBC; Reactive Lymphocytes 2 %; Segmented Neutrophils 49 % (40-80)
[2024-12-26 03:08] LABS: Blood Morphology Comment NOTED (NOT SEEN); Burr Cells 2+; Platelet Estimate ADEQ
--- NOTE | 2024-12-26 05:58 | RAD REPORT ---
EXAM: XR Chest, 1 View CLINICAL HISTORY: The patient is 34 years old and is Male; POST INTUBATION , NG TUBE TECHNIQUE: Frontal view of the chest. COMPARISON: No relevant prior studies available. FINDINGS: Lungs: Diffuse interstitial and airspace opacities bilaterally. Pleural space: Unremarkable. No pneumothorax. Heart: Unremarkable. Mediastinum: Unremarkable. Normal mediastinal contour. Bones/joints: No acute findings. Tubes, lines and devices: Endotracheal tube with tip 4 cm above the jessica. Nasogastric tube coursing below the diaphragm and overlying the left upper quadrant. IMPRESSION: Diffuse interstitial and airspace opacities bilaterally. Electronically signed by: Wayne Bell MD 12/26/2024 01:53 AM CDT 8 Due to temporary technical issues with the [employer] reporting system, reports are being annalise d by the in-house radiologist without review as a courtesy to ensure prompt reporting the interpreting radiologist is fully responsible for the content of the report. Transcribed Date/Time: 12/26/2024 5:57 AM
[2024-12-26 06:00] VITALS: BP 37/19; TEMP 95.5; O2SAT 60
--- NOTE | 2024-12-27 10:58 | EKG ---
Test Date: 2024-12-26 Test Time: 01:36:49 Box Shook Patcher: MEASUREMENT RESULTS: Intervals: Rate: 74 AL: 194 QRSD: 112 QT: 414 QTc: 459 [place]: P: 43 AL: 194 QRS: 4 T: 82 INTERPRETIVE STATEMENTS: Normal sinus rhythm Incomplete right bundle branch block Borderline ECG Compared to ECG 08/31/2021 19:45:01 Incomplete right bundle-branch block now present Electronically Signed On 12-27-24 10:55:36 CDT by Allan Patton
== END 2024-12-26 05:43 | disposition expired ==
LOC: ER 23:58
DX: J96.00 Acute respiratory failure, unspecified whether with hypoxia or hypercapnia (principal); I46.8 Cardiac arrest due to other underlying condition; I50.40 Unspecified combined systolic (congestive) and diastolic (congestive) heart failure; I49.9 Cardiac arrhythmia, unspecified; E87.20 Acidosis, unspecified; N17.9 Acute kidney failure, unspecified; D64.9 Anemia, unspecified; D72.829 Elevated white blood cell count, unspecified; I10 Essential (primary) hypertension; E66.9 Obesity, unspecified; Z68.41 Body mass index [BMI] 40.0-44.9, adult; Z89.512 Acquired absence of left leg below knee
CPT/HCPCS: 93005; 87040 ×2; 87088; 85025; 81001; 87086; 80048; 36415; 83735; 87205 ×2; 85610; 80076; 83605; 84484; 83690; 83880; 71045; 82805; 31500; 92950 ×2; 99291; 99292; 36556; 36600; 94002; J0461; J2543; J3370; J0171; J7050; J7030 ×2; 87077; 87186